=== PATIENT | male | born 1955 | race Caucasian/White ===

== ENCOUNTER 2017-12-13 05:53 | Emergency (ER) | payer OTHER ==
[~2017-12-13] VITALS: Ht 185.4 cm; Wt 158.0 kg
[~2017-12-13 05:53] MED LIST: CINN1CAP2 PO; FLM4 PO; FLNIN/; GLC500 PO; GLUCTAB7 PO; HYDC25 PO; IBUP1TAB55 PO; INSDGI SC; LEVO150T9 PO; LISI-787 PO; MULT-188 PO; MULTTAB58 PO; NAPR1TAB9 PO; NVLG; NVLGI SC; PRS5 PO; [UNRECOGNIZED DRUG - CODE] PO
[2017-12-13] MEDS ORDERED: ONDANSETRON INJ 2 MG/ML 2 ML VIAL IV STA ×2 (05:58→09:48)
[2017-12-13] MEDS ORDERED: MoRPHine SULFATE 4 MG/ML 1 ML CARP\\VIAL IV STA ×2 (05:58→07:29)
[2017-12-13] MEDS ORDERED: SODIUM CHLORIDE 0.9% 500ML 500 ML IV STA ×2 (05:58→06:44)
[2017-12-13 06:00] VITALS: TEMP 36.4; Ht 185.4 cm; Wt 158.0 kg
[2017-12-13 06:02] VITALS: O2SAT 94
[2017-12-13 06:25] LABS: BASO % 0.2 %; BASO ABS # 0.02 K/uL (0-0.2); EOS % 0.8 %; EOS ABS # 0.07 K/uL (0-0.5); HEMATOCRIT 44.9 % (42-52); IG# 0.03 K/uL (0.00-0.02); LYMPH % 21.5 %; LYMPH ABS # 1.78 K/uL (1.2-3.4); MEAN CELL VOLUME 91.6 fL (80-100); MEAN CORPUSCULAR HEMOGLOBIN 30.6 pg (25-34); MEAN CORPUSCULAR HGB CONC 33.4 g/dl (32-36); MEAN PLATELET VOLUME 9.1 fL (7.4-10.4); MONO ABS # 0.74 K/uL (0.11-0.59); NEUT % 68.1 %; NEUT ABS # 5.62 K/uL (1.4-6.5); PLATELET COUNT 207 K/uL (130-400); RED CELL DISTRIBUTION WIDTH CV 13.3 % (11.5-14.5); RED CELL DISTRIBUTION WIDTH SD 44.8 fL (36.4-46.3); WHITE BLOOD COUNT 8.26 K/uL (4.8-10.8)
[2017-12-13 06:43] LABS: ALBUMIN 3.8 gm/dl (3.4-5.0); ALT/SGPT 104 U/L (12-78); BLOOD UREA NITROGEN 19 mg/dl (7-18); CALCIUM 9.4 mg/dl (8.5-10.1); CARBON DIOXIDE 27 mmol/L (21-32); GLUCOSE 262 mg/dl (70-99); LIPASE 149 U/L (73-393); POTASSIUM 3.4 mmol/L (3.5-5.1); SODIUM 138 mmol/L (136-145)
[2017-12-13] MEDS ORDERED: POTASSIUM CHLORIDE 10 MEQ TABCR PO STA (06:44)
[2017-12-13 06:48] LABS: ALKALINE PHOSPHATASE 71 U/L (45-117); AST/SGOT 94 U/L (15-37); TOTAL PROTEIN 7.4 gm/dl (6.4-8.2)
[2017-12-13] MEDS ORDERED: MULT-1056 PO (06:52)
[2017-12-13] MEDS ORDERED: GLC/500 PO ×3 (06:52→07:06)
[2017-12-13] MEDS ORDERED: LOSA50TA6 PO (06:53)
[2017-12-13] MEDS ORDERED: GLUC15002 PO (06:56)
[2017-12-13] MEDS ORDERED: HYDR25TA4 PO (06:57)
[2017-12-13] MEDS ORDERED: GARC1TAB PO (06:57)
[2017-12-13] MEDS ORDERED: INSDGIPEN SC ×2 (07:04)
[2017-12-13] MEDS ORDERED: TAMS0.4C38 PO (07:07)
--- NOTE | 2017-12-13 07:22 | DIAGNOSTIC IMAGING REPORT ---
ABDOMINAL ULTRASOUND, RIGHT UPPER QUADRANT HISTORY: Right upper quadrant abdominal pain and nausea. COMPARISON: KUB October 03, 2008. FINDINGS: This exam is compromised by suboptimal penetration. Increased hepatic echogenicity is noted. The liver is mildly enlarged. There is no biliary ductal dilatation. No gallstones are noted. There is no gallbladder wall thickening. There may be minimal sludge within the gallbladder. The pancreas is largely obscured by overlying bowel gas. Note is made of mild right hydronephrosis. IMPRESSION: 1. No gallstones, gallbladder wall thickening or biliary ductal dilatation. Possible minimal sludge within the gallbladder. 2. Mild right hydronephrosis which could be correlated with right flank pain. 3. Fatty liver. 4. Large obscured pancreas. Electronically signed by: Khari Miller M.D. 12/13/2017 7:21 AM Dictated Date/Time: 12/13/2017 7:19 AM
[2017-12-13] MEDS ORDERED: OPTIRAY 320 IV PRN (07:30)
--- NOTE | 2017-12-13 08:14 | DIAGNOSTIC IMAGING REPORT ---
ABDOMEN AND PELVIS CT WITH IV CONTRAST CT DOSE: 2319.87 mGy.cm HISTORY: right sided abd pain TECHNIQUE: Multiaxial CT images of the abdomen and pelvis were performed following the use of intravenous contrast. A dose lowering technique was utilized adhering to the principles of ALARA. COMPARISON STUDY: Abdominal ultrasound 12/13/2017. FINDINGS: A 5 mm subpleural nodule along the right minor fissure on image 6. There are 2 hypodense lesions within the right hepatic lobe with the largest measuring 1.6 cm. These favor cysts. The spleen, adrenal glands, pancreas, and gallbladder are unremarkable. A 1.3 cm hypodense lesion within the upper pole the left kidney. This also favors a cyst. Bilateral nephrolithiasis. No left-sided hydronephrosis. Mild right perinephric edema. There is mild right hydronephrosis secondary to an obstructing 4 mm stone within the distal right ureter best seen on image 428. Normal bladder. No bowel wall thickening or obstruction. Normal appendix. IMPRESSION: 1. A 4 mm obstructing stone within the distal right ureter resulting in mild right hydronephrosis. 2. Bilateral nephrolithiasis. 3. A 5 mm indeterminate subpleural nodule within the right middle lobe. Please refer to the chart below for recommended follow-up. Please refer to below summary of Fleischner criteria recommendations for follow-up of incidental CT nodules (Anna Vargas, Guidelines for management of small pulmonary nodules detected on CT scans: A statement from the Fleischner Society, Radiology 237: [id number].) SOLID NODULES Solitary nodule size: <6 mm * Low risk patients: no follow-up needed * high risk patients: optional CT at 12 months Solitary nodule size: 6-8 mm * Low risk patients: follow-up at 6-12 months, then consider further follow-up at 18-24 months * high risk patients: initial follow-up CT at 6-12 months and then at 18-24 months if no change Solitary nodule size: >8 mm * either low or high risk patients - consider follow-up CT at 3 months, and/or CT-PET, and/or biopsy Multiple nodules size: <6 mm * Low risk patients: no routine follow-up * high risk patients: optional CT at 12 months Multiple nodules size: 6-8 mm * Low risk patients: follow-up at 3-6 months, then consider further follow-up at 18-24 months * high risk patients: follow-up at 3-6 months, then at 18-24 months if no change Multiple nodules size: >8 mm * Low risk patients: follow-up at 3-6 months, then consider further follow-up at 18-24 months * high risk patients: follow-up at 3-6 months, then at 18-24 months if no change Note: newly detected indeterminate nodule in persons 35 years of age or older. * Low risk patients: minimal or absent history of smoking and/or other known risk factors * high risk patients: history of smoking or of other known risk factors (e.g. first degree relative with lung cancer, or exposure to asbestos, radon, uranium) * if a nodule up to 8 mm is partly solid or is ground glass further follow-up is required after 24 months to exclude possible slow growing adenocarcinoma (SUZANNA) SUBSOLID NODULES Solitary pure ground-glass nodule * nodule size <6 mm - no CT follow-up required * nodule size >=6 mm - follow-up CT at 6-12 months, then every 2 years until 5 years Solitary part-solid nodule * nodule size <6 mm - no CT follow-up required * nodule size >=6 mm - follow-up CT at 3-6 months. If unchanged, and solid component remains <6 mm, then annual follow-up for 5 years Multiple subsolid nodules * nodule size <6 mm - follow-up CT at 3-6 months, consider further follow-up at 2 and 4 years if stable * nodule size >=6 mm - follow-up CT at 3-6 months, subsequent management based on the most suspicious nodule(s) Electronically signed by: Angelo Armando M.D. 12/13/2017 8:13 AM Dictated Date/Time: 12/13/2017 8:07 AM
[2017-12-13] MEDS ORDERED: OXYC1TAB3 PO (09:25)
[2017-12-13] MEDS ORDERED: MoRPHine SULFATE 4 MG/ML 1 ML CARP\\VIAL IV PRN (09:30)
[2017-12-13 09:39] LABS: INR 1.1 (0.9-1.1); PTT PATIENT 24.8 SECONDS (21.0-31.0)
[2017-12-13 09:54] VITALS: BP 173/98; PULSE 72; O2SAT 94
--- NOTE | 2017-12-13 10:16 | EMERGENCY ROOM VISIT NOTE ---
ED Visit Note First contact with patient: 09:17 62-year-old male whose care was transferred to nm from Carolina Holliday PA-C at change of shift. The patient presents to the emergency department with complaint of abdominal pain after eating ham left over from [employer]. At the time of transfer of care, a noncontrast CT of the abdomen and pelvis was pending. Review of labs showed mild LFT elevation, otherwise no other acute findings: Results Past 24 Hours Test 12/13/17 06:14 12/13/17 06:17 12/13/17 06:50 12/13/17 07:05 Range/Units White Blood Count 8.26 4.8-10.8 K/uL Red Blood Count 4.90 4.7-6.1 M/uL Hemoglobin 15.0 14.0-18.0 g/dL Hematocrit 44.9 42-52 % Mean Corpuscular Volume 91.6 80-100 fL Mean Corpuscular Hemoglobin 30.6 25-34 pg Mean Corpuscular Hemoglobin Concent 33.4 32-36 g/dl Platelet Count 207 130-400 K/uL Mean Platelet Volume 9.1 7.4-10.4 fL Neutrophils (%) (Auto) 68.1 % Lymphocytes (%) (Auto) 21.5 % Monocytes (%) (Auto) 9.0 % Eosinophils (%) (Auto) 0.8 % Basophils (%) (Auto) 0.2 % Neutrophils # (Auto) 5.62 1.4-6.5 K/uL Lymphocytes # (Auto) 1.78 1.2-3.4 K/uL Monocytes # (Auto) 0.74 0.11-0.59 K/uL Eosinophils # (Auto) 0.07 0-0.5 K/uL Basophils # (Auto) 0.02 0-0.2 K/uL RDW Standard Deviation 44.8 36.4-46.3 fL RDW Coefficient of Variation 13.3 11.5-14.5 % Immature Granulocyte % (Auto) 0.4 % Immature Granulocyte # (Auto) 0.03 0.00-0.02 K/uL Sodium Level 138 136-145 mmol/L Potassium Level 3.4 3.5-5.1 mmol/L Chloride Level 101 98-107 mmol/L Carbon Dioxide Level 27 21-32 mmol/L Anion Gap 10.0 3-11 mmol/L Blood Urea Nitrogen 19 7-18 mg/dl Creatinine 1.20 0.60-1.40 mg/dl Est Creatinine Clear Calc Drug Dose 100.3 ml/min Estimated GFR () 74.7 Estimated GFR (Non- 64.4 BUN/Creatinine Ratio 15.8 10-20 Random Glucose 262 70-99 mg/dl Calcium Level 9.4 8.5-10.1 mg/dl Total Bilirubin 0.4 0.2-1 mg/dl Direct Bilirubin < 0.1 0-0.2 mg/dl Aspartate Amino Transf (AST/SGOT) 94 15-37 U/L Alanine Aminotransferase (ALT/SGPT) 104 12-78 U/L Alkaline Phosphatase 71 45-117 U/L Troponin I < 0.015 0-0.045 ng/ml Total Protein 7.4 6.4-8.2 gm/dl Albumin 3.8 3.4-5.0 gm/dl Lipase 149 73-393 U/L Bedside Troponin I < 0.030 0-0.045 ng/ml Urine Color YELLOW Urine Appearance CLEAR CLEAR Urine pH 5.0 4.5-7.5 Urine Specific [place] 1.025 1.000-1.030 Urine Protein NEG NEG Urine Glucose (UA) NEG NEG Urine Ketones NEG NEG Urine Occult Blood NEG NEG Urine Nitrite NEG NEG Urine Bilirubin NEG NEG Urine Urobilinogen NEG NEG Urine Leukocyte Esterase NEG NEG Right upper quadrant abdominal ultrasound was ordered and showed possible minimal gallbladder sludge, and mild right hydronephrosis. Radiologist report is as follows: ABDOMINAL ULTRASOUND, RIGHT UPPER QUADRANT HISTORY: Right upper quadrant abdominal pain and nausea. COMPARISON: [facility] October 03, 2008. FINDINGS: This exam is compromised by suboptimal penetration. Increased hepatic echogenicity is noted. The liver is mildly enlarged. There is no biliary ductal dilatation. No gallstones are noted. There is no gallbladder wall thickening. There may be minimal sludge within the gallbladder. The pancreas is largely obscured by overlying bowel gas. Note is made of mild right hydronephrosis. IMPRESSION: 1. No gallstones, gallbladder wall thickening or biliary ductal dilatation. Possible minimal sludge within the gallbladder. 2. Mild right hydronephrosis which could be correlated with right flank pain. 3. Fatty liver. 4. Large obscured pancreas. Noncontrast CT of the abdomen and pelvis shows a 4 mm distal right ureteral stone. An incidental 5 mm right mid lobe lung nodule was also noted. Radiologist report is as follows: ABDOMEN AND PELVIS CT WITH IV CONTRAST CT DOSE: 2319.87 mGy.cm HISTORY: right sided abd pain TECHNIQUE: Multiaxial CT images of the abdomen and pelvis were performed following the use of intravenous contrast. A dose lowering technique was utilized adhering to the principles of ALARA. COMPARISON STUDY: Abdominal ultrasound 12/13/2017. FINDINGS: A 5 mm subpleural nodule along the right minor fissure on image 6. There are 2 hypodense lesions within the right hepatic lobe with the largest measuring 1.6 cm. These favor cysts. The spleen, adrenal glands, pancreas, and gallbladder are unremarkable. A 1.3 cm hypodense lesion within the upper pole the left kidney. This also favors a cyst. Bilateral nephrolithiasis. No left-sided hydronephrosis. Mild right perinephric edema. There is mild right hydronephrosis secondary to an obstructing 4 mm stone within the distal right ureter best seen on image 428. Normal bladder. No bowel wall thickening or obstruction. Normal appendix. IMPRESSION: 1. A 4 mm obstructing stone within the distal right ureter resulting in mild right hydronephrosis. 2. Bilateral nephrolithiasis. 3. A 5 mm indeterminate subpleural nodule within the right middle lobe. Please refer to the chart below for recommended follow-up. Shortly after I assumed patient care, the patient requested additional medicine for pain. He was initially administered morphine 4 mg IVP, and was administered an additional morphine 4 mg IVP prior to CT scan. CT scan confirmed a 4 mm distal right ureteral calculus. An incidental 5 mm right middle lobe lung nodule was also noted. The patient was advised of his CT findings, as well as his ultrasound finding for possible gallbladder sludge. I did suggest follow-up with his PCP for further management/workup of his pulmonary nodule and gallbladder sludge. The patient does have a urologist as he has had prior history of lithotripsy. He was instructed to call their office as needed for persistent flank pain. He was instructed to return to the emergency department for any uncontrollable pain, vomiting or developing fever. Prior to discharge, the patient was also administered an additional Zofran 4 mg IVP. The patient was happy with plan of care, and rated his discomfort a 3 out of 10 at the conclusion of my exam. MEDICAL DECISION MAKING: Patient presents with abrupt onset of right upper quadrant abdominal and flank pain. It was initially thought that the patient could potentially have acute cholecystitis or biliary colic. Although the patient does have possible mild sludge formation within the gallbladder, additional imaging or laboratory studies are not suggestive of cholecystitis. Laboratory studies also are not suggestive of acute pancreatitis. The patient does have a fatty liver with elevated LFTs of unknown chronicity. CT scan does show a 4 mm distal right ureteral calculus which is likely what is causing the patient's discomfort. He has no evidence for infection on urinalysis. DIAGNOSIS: 1. Right ureteral calculus 2. Right middle lobe lung nodule
--- NOTE | 2017-12-14 04:56 | EMERGENCY ROOM VISIT NOTE ---
History First contact with patient: 05:57 Chief Complaint: ABDOMINAL PAIN Stated Complaint: ABDOMINAL PAIN History of Present Illness The patient is a 62 year old male who presents to the Emergency Room with complaints of nausea and vomiting with right upper quadrant pain for the past few hours that woke him up out of sleep. Patient states he had old ham for dinner last night. He states smelled okay. He describes pain as discomfort, ranging in severity 7 out of 10. Nothing makes it better or worse. No blood or black in the emesis. Patient denies chest pain, dyspnea, fever, chills, cough, congestion, diarrhea. His blood sugars normally run around 200. He still has gallbladder. No prior abdominal surgeries. Review of Systems See HPI for pertinent positives & negatives. A total of 10 systems reviewed and were otherwise negative. Past Medical/Surgical History Medical Problems: (1) Bronchitis (2) Diabetes (3) HTN (hypertension) Family History Diabetes mellitus Hypertension Kidney stones Social History Smoking Status: Never Smoker Smokeless Tobacco Use: No Drug Use: none Marital Status: Housing Status: lives with family Occupation Status: employed Current/Historical Medications Scheduled Cinnamon (Cinnamon), 1,000 MG PO BID Garcinia Cambogia-Chromium (Garcinia Cambogia), 1 TAB PO TID Vmsxharsqad-Omtuvtkhkub-Aix C- (Glucosamine 1500 Complex), 1 DOSE PO DAILY Hydrochlorothiazide (Hctz), 25 MG PO BID Insulin Glargine (Lantus Solostar), 25 UNITS SC QAM Insulin Glargine (Lantus Solostar), 30 UNITS SC QPM Levothyroxine Sodium (Levothyroxine Sodium), 150 MCG PO DAILY Losartan Potassium (Cozaar), 50 MG PO DAILY Metformin Hcl (Glucophage), 1,000 MG PO QAM Metformin Hcl (Glucophage), 1,500 MG PO QPM Multiple Vitamins W/ Minerals (Ocuvite), 1 TAB PO BID Multiple Vitamins W/ Minerals (Multivitamin Men 50+), 1 TAB PO DAILY Tamsulosin Hcl (Flomax), 0.4 MG PO HS Physical Exam Vital Signs Date Time Temp Pulse Resp B/P (MAP) Pulse Ox O2 Delivery O2 Flow Rate FiO2 12/13/17 09:54 72 18 173/98 94 Room Air 12/13/17 09:24 77 12/13/17 08:04 70 18 92 Room Air 170/99 12/13/17 07:31 164/93 12/13/17 07:13 72 18 160/101 92 Room Air 12/13/17 07:12 160/101 12/13/17 06:27 72 18 122/73 93 Nasal Cannula 4.0 12/13/17 06:27 122/73 12/13/17 06:05 74 12/13/17 06:02 94 Nasal Cannula 3.0 12/13/17 06:02 Nasal Cannula 12/13/17 06:00 36.4 79 20 135/80 87 Room Air 12/13/17 05:59 135/80 Physical Exam VITALS: Vitals are noted on the nurse's note and reviewed by myself. Vital signs stable. GENERAL: Pleasant male who appears in pain, in no acute distress, nondiaphoretic , well-developed well-nourished. SKIN: The skin was without rashes, erythema, edema, or bruising. There is no tenting of the skin. Capillary reflex less than 2 seconds. HEAD: Normocephalic atraumatic. EARS: External auditory canals clear, tympanic membranes pearly frankel without erythema or effusion bilaterally. EYES: Pupils equal round and reactive to light and accommodation. Conjunctivae without injection, sclerae without icterus. Extraocular movements intact. NOSE: Patent, turbinates without inflammation or discharge. MOUTH: Mucous membranes mildly dry. Pharynx without erythema or exudate. Uvula midline. Airway patent. Tongue does not deviate. NECK: Supple without nuchal rigidity. No lymphadenopathy. No thyromegaly. Cervical spine is nontender. No JVD. HEART: Regular rate and rhythm LUNGS: Clear to auscultation bilaterally without wheezes, rales or rhonchi. No dullness to percussion. No retractions or accessory muscle use. ABDOMEN: Positive bowel sounds x 4. Normal tympanic percussion. Soft, protuberant, obese, tender to palpation right upper quadrant, no CVA tenderness , without masses or organomegaly. No guarding or rebound tenderness. MUSCULOSKELETAL: No muscle atrophy, erythema, noted. NEURO: Patient was alert and oriented to person place and time. Normal sensation to light and sharp touch. No focal neurological deficits. Medical Decision & Procedures Laboratory Results 12/13/17 06:14 Red Blood Count 4.90, Mean Corpuscular Volume 91.6, Mean Corpuscular Hemoglobin 30.6, Mean Corpuscular Hemoglobin Concent 33.4, Mean Platelet Volume 9.1, Neutrophils (%) (Auto) 68.1, Lymphocytes (%) (Auto) 21.5, Monocytes (%) (Auto) 9.0, Eosinophils (%) (Auto) 0.8, Basophils (%) (Auto) 0.2, Neutrophils # (Auto) 5.62, Lymphocytes # (Auto) 1.78, Monocytes # (Auto) 0.74, Eosinophils # (Auto) 0.07, Basophils # (Auto) 0.02 12/13/17 06:14 Test 12/13/17 06:14 12/13/17 06:17 12/13/17 06:50 White Blood Count 8.26 K/uL (4.8-10.8) Red Blood Count 4.90 M/uL (4.7-6.1) Hemoglobin 15.0 g/dL (14.0-18.0) Hematocrit 44.9 % (42-52) Mean Corpuscular Volume 91.6 fL (80-100) Mean Corpuscular Hemoglobin 30.6 pg (25-34) Mean Corpuscular Hemoglobin Concent 33.4 g/dl (32-36) Platelet Count 207 K/uL (130-400) Mean Platelet Volume 9.1 fL (7.4-10.4) Neutrophils (%) (Auto) 68.1 % Lymphocytes (%) (Auto) 21.5 % Monocytes (%) (Auto) 9.0 % Eosinophils (%) (Auto) 0.8 % Basophils (%) (Auto) 0.2 % Neutrophils # (Auto) 5.62 K/uL (1.4-6.5) Lymphocytes # (Auto) 1.78 K/uL (1.2-3.4) Monocytes # (Auto) 0.74 K/uL (0.11-0.59) Eosinophils # (Auto) 0.07 K/uL (0-0.5) Basophils # (Auto) 0.02 K/uL (0-0.2) RDW Standard Deviation 44.8 fL (36.4-46.3) RDW Coefficient of Variation 13.3 % (11.5-14.5) Immature Granulocyte % (Auto) 0.4 % Immature Granulocyte # (Auto) 0.03 K/uL (0.00-0.02) Prothrombin Time 12.0 SECONDS (9.0-12.0) Prothromb Time International Ratio 1.1 (0.9-1.1) Activated Partial Thromboplast Time 24.8 SECONDS (21.0-31.0) Partial Thromboplastin Ratio 1.0 Anion Gap 10.0 mmol/L (3-11) Est Creatinine Clear Calc Drug Dose 100.3 ml/min Estimated GFR () 74.7 Estimated GFR (Non- 64.4 BUN/Creatinine Ratio 15.8 (10-20) Calcium Level 9.4 mg/dl (8.5-10.1) Total Bilirubin 0.4 mg/dl (0.2-1) Direct Bilirubin < 0.1 mg/dl (0-0.2) Aspartate Amino Transf (AST/SGOT) 94 U/L (15-37) Alanine Aminotransferase (ALT/SGPT) 104 U/L (12-78) Alkaline Phosphatase 71 U/L (45-117) Troponin I < 0.015 ng/ml (0-0.045) Total Protein 7.4 gm/dl (6.4-8.2) Albumin 3.8 gm/dl (3.4-5.0) Lipase 149 U/L (73-393) Bedside Troponin I < 0.030 ng/ml (0-0.045) Urine Color YELLOW Urine Appearance CLEAR (CLEAR) Urine pH 5.0 (4.5-7.5) Urine Specific [place] 1.025 (1.000-1.030) Urine Protein NEG (NEG) Urine Glucose (UA) NEG (NEG) Urine Ketones NEG (NEG) Urine Occult Blood NEG (NEG) Urine Nitrite NEG (NEG) Urine Bilirubin NEG (NEG) Urine Urobilinogen NEG (NEG) Urine Leukocyte Esterase NEG (NEG) Medications Administered Medications (Trade) Dose Ordered Sig/Sasha Route Start Time Stop Time Status Last Admin Dose Admin Morphine Sulfate (MoRPHine SULFATE INJ) 4 mg NOW STAT IV 12/13/17 05:58 12/13/17 06:01 DC 12/13/17 06:22 4 MG Ondansetron HCl (Zofran Inj) 4 mg NOW STAT IV 12/13/17 05:58 12/13/17 06:01 DC 12/13/17 06:20 4 MG Sodium Chloride 500 ml @ 999 mls/hr Q31M STAT IV 12/13/17 05:58 12/13/17 06:28 DC 12/13/17 06:20 999 MLS/HR Sodium Chloride 500 ml @ 999 mls/hr Q31M STAT IV 12/13/17 06:44 12/13/17 07:14 DC 12/13/17 07:12 999 MLS/HR Potassium Chloride (Klor-Con M10) 20 meq NOW STAT PO 12/13/17 06:44 12/13/17 06:45 DC 12/13/17 07:08 20 MEQ Morphine Sulfate (MoRPHine SULFATE INJ) 4 mg NOW STAT IV 12/13/17 07:29 12/13/17 07:30 DC 12/13/17 07:32 4 MG Morphine Sulfate (MoRPHine SULFATE INJ) 4 mg Q30M PRN IV 12/13/17 09:30 12/13/17 11:02 DC 12/13/17 09:53 4 MG Ondansetron HCl (Zofran Inj) 4 mg NOW STAT IV 12/13/17 09:48 12/13/17 09:49 DC 12/13/17 09:52 4 MG ED Course Prior records/ancillary studies reviewed. Triage Nursing notes reviewed. Additional history obtained from EMS. The patient's history was concerning for abdominal pain. Differential diagnosis: Etiologies such as appendicitis, diverticulitis, PUD, biliary pathology, UTI, pancreatitis, obstruction, mesenteric ischemia, aortic pathology, infections, inflammatory bowel disease, renal colic, as well as others were entertained. Physical examination findings: As above. ER treatment provided: Morphine, Zofran, IV fluids On reassessment the patient felt better. Diagnostics interpreted by me: ECG: Normal sinus, normal intervals, Q waves in the inferior leads, rate of 71, no acute ST-T wave changes. Impression normal sinus rhythm with Q waves in the inferior leads interpreted by myself The labs revealed hyperglycemia without DKA. Mild LFT elevation and hepatitis panel was ordered because of this along with coags . Negative troponin Imaging studies: CT pending Exam and history seem consistent with abdominal pain pending CT at time of signout. Patient was neurovascularly and neurologically intact. He felt better after being medicated as above. Case is signed out to Bhargav Dow PA-C pending CT and reevaluation in stable condition. Case reviewed with my attending Medical Decision As above Medication Reconcilliation Current Medication List: was personally reviewed by me Impression Primary Impression: Right lower quadrant abdominal pain Departure Information Referrals Fátima Montalvo M.D. (PCP) Patient Instructions My [facility]
== END 2017-12-13 10:40 | disposition home or self-care (01) ==
LOC: EDBD 05:53 → C.EDB 05:54
DX: N20.1 Calculus of ureter (principal); R91.1 Solitary pulmonary nodule; R11.2 Nausea with vomiting, unspecified; E11.9 Type 2 diabetes mellitus without complications; I10 Essential (primary) hypertension; Z79.4 Long term (current) use of insulin; Z79.899 Other long term (current) drug therapy; Z87.09 Personal history of other diseases of the respiratory system; Z82.49 Family history of ischemic heart disease and other diseases of the circulatory system; Z83.3 Family history of diabetes mellitus; Z84.1 Family history of disorders of kidney and ureter

== ENCOUNTER 2021-07-30 17:02 | Inpatient (IN) ==
--- NOTE | 2021-07-30 18:13 | Emergency Department Note ---
Impression & Plan Pneumonia due to 2019-nCoV, Hypoxia, Acute hyperglycemia, Hypokalemia ED Provider Note NAME: JERRY OLIVAS AGE: 66 SEX: M : 1955 ARRIVES VIA: Walk-In INFORMANT: Patient ED PROVIDER(S): Erwin Weeks DO CHIEF COMPLAINT: not feeling well HPI: Patient is a 66-year-old male who presents ER for not feeling well. He notes has been more short of breath recently over the past 2 weeks. Denies any headache or change in vision. He denies any chest pain. No nausea vomiting or diarrhea. No dysuria urgency or frequency. Patient notes that he is sign ificantly dyspneic with any exertion. No history of COPD. He does have a cough which is new over the past couple weeks. He does feel little congested. He has lost his sense of taste and smell. He has not been vaccinated against Covid. He denies any recorded fevers above 100.4. He does wear CPAP at home. ROS: See above HPI for pertinent positives & negatives. A total of 10 systems reviewed and were otherwise negative. PAST MEDICAL HISTORY:See Below PAST SURGICAL HISTORY:See Below FAMILY HISTORY:See Below SOCIAL HISTORY:See Below HOME MEDICATIONS:See Below ALLERGIES:See Below VITALS:See Below PHYSICAL EXAMINATION: GENERAL: Sitting up in bed, alert, well appearing, well nourished, no distress, non-toxic EYE EXAM: normal conjunctiva. PERRL and EOM's grossly intact. OROPHARYNX: no exudate, no erythema, lips, buccal mucosa, and tongue normal and mucous membranes are moist NECK: supple, no nuchal rigidity, no adenopathy, non-tender LUNGS: Clear to auscultation. Normal chest wall mechanics HEART: no murmurs, S1 normal and S2 normal ABDOMEN: abdomen soft, non-tender, normo-active bowel sounds, no masses, no rebound or guarding. UPPER EXTREMITIES: upper extremities are grossly normal. LOWER EXTREMITIES: No pitting edema. Calves are ago bilateral NEURO EXAM: Normal sensorium, cranial nerves II-XII grossly intact, normal speech, no gross weakness of arms, no gross weakness of legs. MEDICAL DECISION MAKING: Patient is a 66-year-old male who presents ER for above-stated complaint. Upon presentation he was found to be hypoxic at 85% on room air. Borderline febrile at 37.3. He is slightly tachycardic. IV was established blood was obtained. Labs show no significant leukocytosis or anemia. BMP with mild hyponatremia at 131. Mild hypokalemia 3.1. LFTs were unremarkable. Bilirubin was unremarkable. Glucose was slightly elevated to 50. Covid was positive. Troponin was negative. CT of the chest shows Bilateral infiltrates consistent w ith pneumonia/Covid.. No obvious PEs but a limited study. EKG was unchanged from previous. Patient was given fluids, IV calcium, oral potassium and IV insulin. Patient was updated bedside. Discussed with hospitalist admitted for further work-up. Patient was titrated up to 4 L and was 87%. He was placed on high flow. He was resting comfortably and in no distress. Triage Nursing notes reviewed. Limited review of prior medical records performed Vital Signs: reviewed and remarkable for hypoxic, tachycardic and borderline febrile Differential diagnosis: Differential diagnoses includes but is not limited to pneumonia, bronchitis, COPD/Asthma exacerbation, pneumothorax, pulmonary embolism, congestive heart failure, acute coronary syndrome ER treatment provided: See below Diagnostics interpreted by me: ECG: Sinus tachycardia rate of 96 Left axis No PVCs QTC 452 Cardiac Monitoring: An order was placed for continuous cardiac monitoring. The monitor shows a rate of 92 with sinus rhythm. Laboratory studies: As stated above and show below. Imaging studies: CT angio of the chest shows bilateral infiltrates. Limited study from the standpoint of PE. Consultation(s): Discussed with Dr. Chuyita Callahan for further evaluation Procedures: none Critical Care: I have personally spent 32 minutes of critical care time in the direct management of this patient. This includes bedside care, interpretation of milady gnostic studies, and testing, discussion with consultants, patient, and family members, and other required patient management activities. This 32 minutes is in excess of all separately billable procedures. Past Med/Surg History Medical History Bilateral primary osteoarthritis of knee Diabetes mellitus, type 2 Diabetic peripheral neuropathy History of kidney stones Hyperlipidemia Hypertension Hypothyroidism Obesity Osteoarthritis Sleep apnea Slow to wake up after anesthesia T2DM (type 2 diabetes mellitus) Urinary urgency Surgical History History of tonsillectomy and adenoidectomy History of uvulopalatopharyngoplasty Hx of knee surgery Family History Father Coronary heart disease Allergies Hearing loss Mother Hypotension Brother Diabetes Other No family history of adverse response to anesthesia No family history of bleeding disorder Social History Smoking Status: Never smoker 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); Hx Alcohol Use: Yes Alcohol Intake Frequency: Monthly or Less Hx Substance Use: No Preferred Language: Persian Communication Ability: Effective Beliefs That Will Affect Care: None marital status: Current Living Situation: Spouse current occupational status: retired current occupation: self employed currently(2020) Feels Safe at Home: Yes Assistive Devices: CPAP, Glasses and Oxygen - at Night Allergies Allergies Allergy/AdvReac Type Severity Reaction Status Date / Time No Known Allergies Allergy Verified 07/30/21 18:44 Home Meds Home Medications Medication Instructions Recorded Confirmed glucosamine sulf dipot 1 cap PO QAM 12/28/19 07/30/21 chlr,msm,chond 550 mg-C 30 mg-julieta 1 mg capsule (Glucosamine Chondroitin) hydrochlorothiazide 25 mg tablet 25 mg PO BID 12/28/19 07/30/21 levothyroxine 150 mcg tablet 150 mcg PO QAM 12/28/19 07/30/21 metformin 500 mg tablet 1,000 mg PO QAM 12/28/19 07/30/21 metformin 500 mg tablet 1,500 mg PO QPM 12/28/19 07/30/21 multivitamin 1 tab PO QAM 12/28/19 07/30/21 oxybutynin chloride 10 mg 10 mg PO QPM 12/28/19 07/30/21 tablet,extended release 24 hr Raspberry ketones 1 tab PO BID 10/14/20 07/30/21 blood sugar diagnostic (Accu-Chek #10 ea 10/14/20 05/14/21 Guide test strips) lancets (Accu-Chek Softclix #100 ea 10/14/20 05/20/21 Lancets) cinnamon bark 500 mg capsule 1,000 mg PO BID 02/05/21 07/30/21 (Cinnamon) losartan 25 mg tablet 25 mg PO DAILY 04/08/21 07/30/21 acetaminophen 500 mg oral powder 1,000 mg PO DIRECTED PRN ea 05/20/21 07/30/21 packet (Tylenol Extra Strength) diphenhydramine HCl 25 mg capsule 25 mg PO DAILY cap 05/20/21 07/30/21 (Benadryl) insulin aspart U-100 100 unit/mL 100 unit SUBCUT TID ml 05/20/21 07/30/21 subcutaneous solution (Novolog U-100 Insulin aspart) insulin glargine 100 unit/mL See Rx Instructions .ROUTE .COMPLEX 05/20/21 07/30/21 subcutaneous solution omega-3 fatty acids 1,000 mg 1,000 mg PO DAILY 05/20/21 07/30/21 capsule (Fish Oil Concentrate) turmeric 400 mg capsule 400 mg PO DAILY cap 05/20/21 07/30/21 fluticasone propionate 50 1 spray INTRANASAL DIRECTED 07/30/21 07/30/21 mcg/actuation nasal spray,suspension mupirocin 2 % topical ointment 1 applic TOPICAL BID PRN 07/30/21 07/30/21 potassium chloride 10 mEq 0 meq PO DAILY 07/30/21 07/30/21 tablet,extended release sodium chloride 0.65 % nasal spray 2 spray INTRANASAL DIRECTED PRN 07/30/21 07/30/21 aerosol (Saline Nasal) vitamin A-vitamin C-vit E-min 1 tab PO DAILY 07/30/21 07/30/21 tablet Previous Rx's Medication Instructions Recorded semaglutide 1 mg/dose (2 mg/1.5 0.5 mg SUBCUT ONCE 30 Days #11.25 05/20/21 mL) subcutaneous pen injector ml Results & Data (ED) Vital Signs Vital Signs - 24 hr 07/30/21 17:03 07/30/21 17:10 07/30/21 17:17 Temperature 39.3 C H 37.7 C H Temperature Source Oral Temporal Artery Scan Pulse Rate 103 H 96 H Pulse Rate [Apical] 96 H Pulse Rate from SpO2 Sensor Pulse Rhythm Regular Regular Pulse Rhythm [Apical] Regular Pulse Strength Normal Pulse Strength [Apical] Normal Respiratory Rate 22 20 20 Respiratory Effort / Characteristics Spontaneous Accessory Muscle Use Respiratory Depth Normal Shallow Respiratory Pattern Regular Regular Blood Pressure 136/80 Blood Pressure [Right Arm] 164/94 H Blood Pressure Mean 98 Blood Pressure Mean [Right Arm] 117 Blood Pressure Position Sitting Blood Pressure Position [Right Arm] Semi-fowlers Pulse Oximetry 82 L 86 L 90 Oxygen Delivery Method Nasal Cannula Room Air Nasal Cannula Oxygen Flow Rate 0 3 Sepsis Recent Fever Within 48 Hours Yes Sepsis New/Unexplained Change in Mental Status N/A Sepsis Action Taken by Nursing No Action Required Oxygen Flow Rate - Titration 3 Pulse Oximetry Post Tiitration 90 07/30/21 18:20 07/30/21 19:03 07/30/21 19:37 Temperature Temperature Source Pulse Rate 97 H 89 Pulse Rate [Apical] 91 H Pulse Rate from SpO2 Sensor 97 H 89 Pulse Rhythm Pulse Rhythm [Apical] Regular Pulse Strength Pulse Strength [Apical] Normal Respiratory Rate 20 Respiratory Effort / Characteristics Spontaneous Respiratory Depth Normal Respiratory Pattern Regular Blood Pressure 164/94 H 129/65 Blood Pressure [Right Arm] 164/94 H Blood Pressure Mean 117 86 Blood Pressure Mean [Right Arm] 117 Blood Pressure Position Blood Pressure Position [Right Arm] Semi-fowlers Pulse Oximetry 90 90 87 L Oxygen Delivery Method Nasal Cannula Nasal Cannula Nasal Cannula Oxygen Flow Rate 4 3 4 Sepsis Recent Fever Within 48 Hours Sepsis New/Unexplained Change in Mental Status Sepsis Action Taken by Nursing Oxygen Flow Rate - Titration Pulse Oximetry Post Tiitration Laboratory Data Result diagrams: 07/30/21 19:05 07/30/21 19:05 Lab Results 07/30/21 07/30/21 07/30/21 Range/Units 19:05 19:05 19:05 WBC 5.50 (4.8-10.8) K/uL RBC 5.05 (4.7-6.1) M/uL Hgb 15.5 (14.0-18.0) g/dL POC Hgb (14.0-18.0) g/dl Hct 45.0 (42-52) % POC Hct (42-52) % MCV 89.1 (80-100) fL MCH 30.7 (25-34) pg MCHC 34.4 (32-36) g/dL RDW Std Deviation 45.9 (36.4-46.3) fL RDW Coeff of Mary 14.1 (11.5-14.5) % Plt Count 176 (130-400) K/uL MPV 9.3 (7.4-10.4) fL Immature Gran % (Auto) 0.2 % Neut % (Auto) 76.5 % Lymph % (Auto) 15.5 % [place] % (Auto) 7.6 % Eos % (Auto) 0.0 % Baso % (Auto) 0.2 % Neut # (Auto) 4.21 (1.4-6.5) K/uL Lymph # (Auto) 0.85 L (1.2-3.4) K/uL [place] # (Auto) 0.42 (0.11-0.59) K/uL Eos # (Auto) 0.00 (0-0.5) K/uL Baso # (Auto) 0.01 (0-0.2) K/uL Immature Gran # (Auto) 0.01 (0.00-0.02) K/uL APTT 28.0 (21.0-31.0) Seconds PTT Ratio 1.1 POC Sodium (135-144) mmol/L Sodium 131 L (136-145) mmol/L POC Potassium (3.3-5.0) mmol/L Potassium 3.1 L (3.5-5.1) mmol/L POC Chloride (101-112) mmol/L Chloride 91 L (98-107) mmol/L Carbon Dioxide 30 (21-32) mmol/L POC Total CO2 (24-31) mmol/L Anion Gap 9.0 (3-11) POC Anion Gap (16-25) mmol/L POC BUN (7-18) mg/dl BUN 10 (7-18) mg/dl Creatinine 0.99 (0.6-1.4) mg/dl POC Creatinine (0.6-1.3) mg/dl Est Cr Clr Drug Dosing 109.6 ml/min Est GFR ( Amer) 91.6 ml/min Est GFR (Non-Af Amer) 79.0 ml/min BUN/Creatinine Ratio 9.9 L (10-20) Glucose 246 H (70-99) mg/dl POC Glucose (other) (70-99) mg/dl Calcium 8.3 L (8.5-10.1) mg/dl POC Ioniz Calcium Deja (1.12-1.32) mmol/l Total Bilirubin 0.4 (0.2-1) mg/dl AST 61 H (15-37) U/L ALT 47 (12-78) U/L Alkaline Phosphatase 35 L (45-117) U/L Troponin I < 0.015 (0-0.045) ng/ml Total Protein 7.5 (6.4-8.2) gm/dl Albumin 3.3 L (3.4-5.0) gm/dl Globulin 4.2 H (2.5-4.0) gm/dl Albumin/Globulin Ratio 0.8 L (0.9-2) Lipase 255 (73-393) U/L COVID-19 Eval Order SARS-CoV-2 (PCR) (Negative) 07/30/21 07/30/21 07/30/21 Range/Units 19:05 19:05 19:06 WBC (4.8-10.8) K/uL RBC (4.7-6.1) M/uL Hgb (14.0-18.0) g/dL POC Hgb 16.3 (14.0-18.0) g/dl Hct (42-52) % POC Hct 48 (42-52) % MCV (80-100) fL MCH (25-34) pg MCHC (32-36) g/dL RDW Std Deviation (36.4-46.3) fL RDW Coeff of Mary (11.5-14.5) % Plt Count (130-400) K/uL MPV (7.4-10.4) fL Immature Gran % (Auto) % Neut % (Auto) % Lymph % (Auto) % [place] % (Auto) % Eos % (Auto) % Baso % (Auto) % Neut # (Auto) (1.4-6.5) K/uL Lymph # (Auto) (1.2-3.4) K/uL [place] # (Auto) (0.11-0.59) K/uL Eos # (Auto) (0-0.5) K/uL Baso # (Auto) (0-0.2) K/uL Immature Gran # (Auto) (0.00-0.02) K/uL APTT (21.0-31.0) Seconds PTT Ratio POC Sodium 131 L (135-144) mmol/L Sodium (136-145) mmol/L POC Potassium 3.2 L (3.3-5.0) mmol/L Potassium (3.5-5.1) mmol/L POC Chloride 87 L (101-112) mmol/L Chloride (98-107) mmol/L Carbon Dioxide (21-32) mmol/L POC Total CO2 29 (24-31) mmol/L Anion Gap (3-11) POC Anion Gap 19.0 (16-25) mmol/L POC BUN 10 (7-18) mg/dl BUN (7-18) mg/dl Creatinine (0.6-1.4) mg/dl POC Creatinine 0.8 (0.6-1.3) mg/dl Est Cr Clr Drug Dosing ml/min Est GFR ( Amer) ml/min Est GFR (Non-Af Amer) ml/min BUN/Creatinine Ratio (10-20) Glucose (70-99) mg/dl POC Glucose (other) 249 H (70-99) mg/dl Calcium (8.5-10.1) mg/dl POC Ioniz Calcium Deja 0.97 L (1.12-1.32) mmol/l Total Bilirubin (0.2-1) mg/dl AST (15-37) U/L ALT (12-78) U/L Alkaline Phosphatase (45-117) U/L Troponin I (0-0.045) ng/ml Total Protein (6.4-8.2) gm/dl Albumin (3.4-5.0) gm/dl Globulin (2.5-4.0) gm/dl Albumin/Globulin Ratio (0.9-2) Lipase (73-393) U/L COVID-19 Eval Order Covid19 at [facility] SARS-CoV-2 (PCR) POSITIVE A* (Negative) Administered Medications Discontinued Medications Dexamethasone Sodium Phosphate (DexamethasonePf 10 Mg/Ml Vial) 6 mg IV NOW ONE Stop: 07/30/21 20:07 Last Admin: 07/30/21 20:27 Dose: 6 mg Documented by: [id number] Ioversol (Optiray 320 125ml) 120 ml IV ONCE ONE Stop: 07/30/21 19:35 Last Admin: 07/30/21 19:34 Dose: 120 ml Documented by: [id number] Imaging Data Radiologist's Impression: Chest X-Ray 07/30/21 17:17 XR chest 1V portable CLINICAL HISTORY: Chest Pain COMPARISON STUDY: May 02, 2016 FINDINGS: No pneumothorax. No pleural effusion. Patchy reticular opacities are seen throughout bilateral lungs. Superimposed airspace component is seen within left retrocardiac region and could represent atelectasis or infiltrates.. Accessory azygous lobe is demonstrated. Lung volumes are decreased with crowded lung markings. Cardiomediastinal silhouette is within normal limits in size. No significant pulmonary vascular congestion.. Osseous structures: Mild degenerative changes of the spine. IMPRESSION: 1. Possible atelectasis or infiltrates within left retrocardiac region. 2. The rest of findings as above. ACT 112: Negative or not required by law. The above report was generated using voice recognition software. It may contain grammatical, syntax or spelling errors. Electronically signed by: Kerline Santiago DO 07/30/2021 6:29 PM Chest CTA 07/30/21 17:28 CT ANGIOGRAM OF THE CHEST CLINICAL HISTORY: hypoxic and febrile COMPARISON STUDY: No previous studies for comparison. TECHNIQUE: Following the IV administration of 120 mL of Optiray, CT angiogram of the thorax was performed from the thoracic inlet to the lung bases utilizing the pulmonary embolus protocol. Images are reviewed in the axial, sagittal, and coronal planes. IV contrast was administered without complication. MIP imaging was performed. A dose lowering technique was utilized adhering to the principles of [place]. CT DOSE: 1084.07 mGy.cm FINDINGS: No definite filling defect is seen within main pulmonary artery to suggest pulmonary embolus however opacification within main pulmonary artery is insufficient for adequate evaluation of pulmonary embolus. Significant motion artifact further degrades image quality. Main pulmonary artery is normal in caliber. No evidence of right heart strain seen. Heart is normal in size without pericardial effusion. Mild to moderate coronary calcifications are seen. There is no axillary, supra clavicle or internal mammary lymphadenopathy seen. Mediastinal lymph nodes are slightly prominent measuring up to 1.1 cm in short axis, could be reactive.. Prominent right hilar lymph node measuring 1.6 cm in short axis is seen. Visualized portion of thyroid gland shows no evidence of focal lesions. Mild fat containing hiatal healing is seen. Tracheobronchial tree is patent. Patchy mixed reticular and centrilobular groundglass and consolidative opacities are seen throughout bilateral lungs. Evaluation is limited due to significant motion artifact. No definite pleural effusion is seen. Prominent azygos lobe is seen. Limited evaluation of upper abdominal viscera shows no evidence of acute abnormalities. Osseous structures: Multilevel degenerative changes of the spine. IMPRESSION: No definite pulmonary embolus is seen however opacification within main pulmonary artery is insufficient for adequate evaluation for pulmonary embolus. Also respiratory motion artifact further limits evaluation. No secondary signs of pulmonary embolus. Multifocal mixed reticular and airspace consolidative and groundglass opacities are seen throughout bilateral lungs which could represent atypical pneumonia/Covid. Short-term follow-up with noncontrast CT of the chest on nonemergency basis in 4-6 weeks is recommended to document resolution. The rest of findings as above. ACT 112: Positive. There are findings on this exam that require communication between the performing entity and the patient following Patient Test Result Information Act ([place] Act 112) guidelines. The above report was generated using voice recognition software. It may contain grammatical, syntax or spelling errors. Electronically signed by: Kerline Santiago DO 07/30/2021 8:23 PM Discharge Plan Visit Data Chief Complaint: Shortness of Breath/Dyspnea Stated Complaint: CAN'T BREATHE ED Provider: Erwin Weeks Discharge Problem: Pneumonia due to 2019-nCoV, Hypoxia, Acute hyperglycemia, Hypokalemia Forms Stand Alone Forms: [employer] Prescriptions Prescriptions: No Action Raspberry ketones 1 tab PO BID RF: 0 (DME) lancets [Accu-Chek Softclix Lancets] Misc See Rx Instructions .ROUTE .MEDSUPPLY Qty: 100 RF: 0 (DME) Accu-Chek Guide test strips Strip See Rx Instructions .ROUTE .MEDSUPPLY Qty: 10 RF: 0 losartan 25 mg tablet 25 mg PO DAILY RF: 0 insulin aspart U-100 [Novolog U-100 Insulin aspart] 100 unit/mL solution 100 unit subcut TID RF: 0 turmeric 400 mg capsule 400 mg PO DAILY RF: 0 diphenhydramine HCl [Benadryl] 25 mg capsule 25 mg PO DAILY RF: 0 Tylenol Extra Strength 500 mg powder in packet 1,000 mg PO DIRECTED PRN (Reason: Pain) RF: 0 Ozempic 1 mg/dose (2 mg/1.5 mL) pen injector 0.5 mg subcut ONCE 30 Days Qty: 11.25 RF: 5 omega-3 fatty acids [Fish Oil Concentrate] 1,000 mg capsule 1,000 mg PO DAILY RF: 0 oxybutynin chloride 10 mg Tablet Extended Release 24hr 10 mg PO QPM RF: 0 hydrochlorothiazide 25 mg Tablet 25 mg PO BID RF: 0 Glucosamine Chondroitin 550-30-1 mg Capsule 1 cap PO QAM RF: 0 metformin 500 mg Tablet 1,000 mg PO QAM RF: 0 metformin 500 mg Tablet 1,500 mg PO QPM RF: 0 levothyroxine 150 mcg Tablet 150 mcg PO QAM RF: 0 multivitamin Tablet 1 tab PO QAM RF: 0 cinnamon bark [Cinnamon] 500 mg capsule 1,000 mg PO BID RF: 0 insulin glargine 100 unit/mL solution See Rx Instructions .ROUTE .COMPLEX RF: 0 potassium chloride 10 mEq Tablet Extended Release 0 meq PO DAILY RF: 0 fluticasone propionate [Flonase] 50 mcg/actuation [place],Suspension 1 spray INTRANASAL DIRECTED RF: 0 Eye-Vites Tablet 1 tab PO DAILY RF: 0 sodium chloride [Saline Nasal] 0.65 % Aerosol,[place] 2 spray INTRANASAL DIRECTED PRN (Reason: NASAL DRYNESS) RF: 0 mupirocin 2 % ointment 1 applic topical BID PRN (Reason: NASAL DRYNESS) RF: 0 Referrals Referrals: Kennedy De La Garza, [facility] [Primary Care Provider] -
--- NOTE | 2021-07-30 18:30 | XRay Report ---
XR chest 1V portable CLINICAL HISTORY: Chest Pain COMPARISON STUDY: May 02, 2016 FINDINGS: No pneumothorax. No pleural effusion. Patchy reticular opacities are seen throughout bilateral lungs. Superimposed airspace component is se en within left retrocardiac region and could represent atelectasis or infiltrates.. Accessory azygous lobe is demonstrated. Lung volumes are decreased with crowded lung markings. Cardiomediastinal silhouette is within normal limits in size. No significant pulmonary vascular congestion.. Osseous structures: Mild degenerative changes of the spine. IMPRESSION: 1. Possible atelectasis or infiltrates within left retrocardiac region. 2. The rest of findings as above. ACT 112: Negative or not required by law. The above report was generated using voice recognition software. It may contain grammatical, syntax o r spelling errors. Electronically signed by: Kerline Santiago DO 07/30/2021 6:29 PM
[2021-07-30 19:16] LABS: Basophils # (auto) 0.01 K/uL (0-0.2); Basophils % (auto) 0.2 %; Hemoglobin 15.5 g/dL (14.0-18.0); Immature Granulocytes # (auto) 0.01 K/uL (0.00-0.02); Immature Granulocytes % (auto) 0.2 %; Lymphocytes # (auto) 0.85 K/uL (1.2-3.4); Lymphocytes % (auto) 15.5 %; Mean Corpuscular Hemoglobin 30.7 pg (25-34); Mean Corpuscular Hgb Conc 34.4 g/dL (32-36); Mean Corpuscular Volume 89.1 fL (80-100); Mean Platelet Volume 9.3 fL (7.4-10.4); Monocytes # (auto) 0.42 K/uL (0.11-0.59); Monocytes % (auto) 7.6 %; Neutrophils # (auto) 4.21 K/uL (1.4-6.5); Neutrophils % (auto) 76.5 %; Platelet Count 176 K/uL (130-400); RDW Coefficient of Variation 14.1 % (11.5-14.5); RDW Standard Deviation 45.9 fL (36.4-46.3); Red Blood Count 5.05 M/uL (4.7-6.1)
[2021-07-30 19:18] LABS: iSTAT Creatinine 0.8 mg/dl (0.6-1.3); iSTAT Hemoglobin 16.3 g/dl (14.0-18.0); iSTAT Ionized Calcium 0.97 mmol/l (1.12-1.32); iSTAT Potassium 3.2 mmol/L (3.3-5.0)
[2021-07-30 19:26] LABS: Partial Thromboplastin Ratio 1.1
[2021-07-30 19:30] LABS: Alanine Aminotransferase 47 U/L (12-78); Albumin Level 3.3 gm/dl (3.4-5.0); Aspartate Aminotransferase 61 U/L (15-37); BUN Creatinine Ratio 9.9 (10-20); Blood Urea Nitrogen 10 mg/dl (7-18); Calcium 8.3 mg/dl (8.5-10.1); Carbon Dioxide 30 mmol/L (21-32); Chloride 91 mmol/L (98-107); Creatinine Clr Calc Pharmacy 109.6 ml/min; Est GFR (African American) 91.6 ml/min; Glucose 246 mg/dl (70-99); Lipase 255 U/L (73-393); Potassium 3.1 mmol/L (3.5-5.1); Sodium 131 mmol/L (136-145)
[2021-07-30] MEDS ORDERED: OPTIRAY 320 125ml IV ONE (19:34)
[2021-07-30 19:35] LABS: Albumin Globulin Ratio 0.8 (0.9-2); Alkaline Phosphatase 35 U/L (45-117); Bilirubin,Total 0.4 mg/dl (0.2-1); Globulin 4.2 gm/dl (2.5-4.0); Total Protein 7.5 gm/dl (6.4-8.2); Troponin I < 0.015 ng/ml (0-0.045)
[2021-07-30] MEDS ORDERED: dexAMETHasone**PF** 10 MG/ML VIAL IV ONE (20:06)
--- NOTE | 2021-07-30 20:24 | CT Scan Report ---
CT ANGIOGRAM OF THE CHEST CLINICAL HISTORY: hypoxic and febrile COMPARISON STUDY: No previous studies for comparison. TECHNIQUE: Following the IV administration of 120 mL of Optiray, CT angiogram of the thorax was perfo rmed from the thoracic inlet to the lung bases utilizing the pulmonary embolus protocol. Images are r eviewed in the axial, sagittal, and coronal planes. IV contrast was administered without complication . MIP imaging was performed. A dose lowering technique was utilized adhering to the principles of [place]. CT DOSE: 1084.07 mGy.cm FINDINGS: No definite filling defect is seen within main pulmonary artery to suggest pulmonary embolus however opacification within main pulmonary artery is insufficient for adequate evaluation of pulmonary embol us. Significant motion artifact further degrades image quality. Main pulmonary artery is normal in caliber. No evidence of right heart strain seen. Heart is normal in size without pericardial effusion. Mild to moderate coronary calcifications are se en. There is no axillary, supra clavicle or internal mammary lymphadenopathy seen. Mediastinal lymph node s are slightly prominent measuring up to 1.1 cm in short axis, could be reactive.. Prominent right hi lar lymph node measuring 1.6 cm in short axis is seen. Visualized portion of thyroid gland shows no evidence of focal lesions. Mild fat containing hiatal he aling is seen. Tracheobronchial tree is patent. Patchy mixed reticular and centrilobular groundglass and consolidative opacities are seen throughout bilateral lungs. Evaluation is limited due to significant motion artifact. No definite pleural effusion is seen. Prominent azygos lobe is seen. Limited evaluation of upper abdominal viscera shows no evidence of acute abnormalities. Osseous structures: Multilevel degenerative changes of the spine. IMPRESSION: No definite pulmonary embolus is seen however opacification within main pulmonary artery is insuffici ent for adequate evaluation for pulmonary embolus. Also respiratory motion artifact further limits ev aluation. No secondary signs of pulmonary embolus. Multifocal mixed reticular and airspace consolidative and groundglass opacities are seen throughout b ilateral lungs which could represent atypical pneumonia/Covid. Short-term follow-up with noncontrast CT of the chest on nonemergency basis in 4-6 weeks is recommended to document resolution. The rest of findings as above. ACT 112: Positive. There are findings on this exam that require communication between the performing entity and the patient following Patient Test Result Information Act ([place] Act 112) guidelines. The above report was generated using voice recognition software. It may contain grammatical, syntax o r spelling errors. Electronically signed by: Kerline Santiago DO 07/30/2021 8:23 PM
[2021-07-30] MEDS ORDERED: NovoLIN-R INSULIN PER UNIT CHARGE IV STA (20:30)
[2021-07-30] MEDS ORDERED: POTASSIUM CHLORIDE 10 MEQ TABCR PO STA (20:30)
[2021-07-30] MEDS ORDERED: CALCIUM GLUCONATE 1,000 MG/60 ML BAG IV STA (20:32)
[2021-07-30] MEDS ORDERED: POTASSIUM CHLORIDE 20 MEQ/15 ML UDC PO STA (20:34)
[2021-07-30 20:53] LABS: C Reactive Protein 4.47 mg/dl (0-0.29); Ferritin 523.6 ng/ml (8-388); Magnesium 1.4 mg/dl (1.8-2.4); NT Pro B Type Natriuretic Pept 37 pg/ml (0-900)
[2021-07-30] MEDS ORDERED: REMDESIVIR 200 MG in SODIUM CHLORIDE 0.9% 210 ML IV STA (21:03)
[2021-07-30] MEDS ORDERED: FUROSEMIDE 40 MG/4 ML VIAL IV STA (21:04)
[2021-07-30] MEDS ORDERED: MAGNESIUM SULFATE / D5W 1 GM/100 ML BAG IV STA (21:12)
--- NOTE | 2021-07-30 21:22 | History & Physical Report ---
Date of Service July 30, 2021 Assessment & Plan (1) Pneumonia due to 2019-nCoV: Plan: COVID19 pneumonia with hypoxia- unsure of day of illness ~10-12 - Remdisivir - Lasix 10mg IV to decrease lung edema- as well as will be getting IVPB for multiple electrolyte replacements - Decadron 10mg IV daily - Currently not TOCI candidate and with BMI dosing not available- Decadron increased as above - Azithromycin 500mg PO x1 and then 250mg PO daily - Albuterol nebs scheduled - CRP 4.47, ferritin 523.6 - PCT- pending on admission - BNP 37 - Fibrinogen- pending on admission - Reviewed with patient need for self rotation therapy and proning, he is more able to lay on his side than on his abdomen - CPAP/BiPAP at night- his is normally on CPAP 11cm H20 nightly - Lovenox 40 subq BID- consider increase dosing for BMI- fibrinogen pending (2) Hypoxia: Plan: As above without respiratory failure - secondary to COVID 19 - Self rotation - HFNC/CPAP/BIPAP- titrate to keep Spo2 >92 - Intubation if respiratory failure or unable to maintain oxygenation (3) Sleep apnea: Plan: CPAP nightly 11cm H20 (4) HTN (hypertension): Plan: Continue ARB as renal indicies allow - continue HCTZ daily - Troponin I <0.015 on admission (5) T2DM (type 2 diabetes mellitus): Plan: Hyperglycemic in the EMD- was treated with insulin in ER - Continue Lantus 28/33 units qAM and qPM respectively - Aspart sliding scale with CF 20 and Ratio 1:8 - expect increase with steroids- patient aware of likely need for increased insulin dosing - Hold Metformin - Hold Ozempic (6) Hyperlipidemia: Plan: On omega 3 as outpatient - hold while in house (7) Hypothyroidism: Plan: Continue synthroid (8) Back strain: Plan: Chronic back pain - will likely prevent from lying prone - on Glucosamine (9) DJD (degenerative joint disease) of knee: Plan: As above (10) Hypokalemia: Plan: On K replacment at home - replete orally follow in morning with lasix dosing (11) Hypomagnesemia: Plan: Likelydue to poor oral intake over the past week - replete follow in morning (12) Hypocalcemia: Plan: As above History of Present Illness Chief Complaint: Covid-19 Primary Care Provider: Kennedy De La Garza, [employer]-C 66 YOM with past medical history of: Obesity, DMII (on insulin), HTN, HLD, PADMINI. Patient comes in to the [facility] tonight for increased dyspnea and cough. The patient is unsure of when he started feeling ill, as these symptoms have been ongoing for the past few months, but he feels that for the past 2 weeks it has gotten much worse. 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 He was able to say that he lost his sense of taste and smell around 10 days ago. The patient is hypoxic in the EMD and currently on HFNC at 60L and 35%. In the EMD he had routine labs drawn, and CTA of the chest performed. There is no large pulmonary embolism noted, but degraded exam secondary to respiratory artifact. Patient was given Decadron in the EMD, he is also noted to be hypokalemic, hypomagnesia, and hypocalcemic via ionized. Will replete his electrolytes as his appetite has been poor and oral intake has been low. He does get short of breath with movement in bed. Will admit patient to PCU, COVID precautions, continue Decadron, glucose control, will place Sarabia catheter secondary to his hypoxia and dyspnea. He is a not vaccinated and his COVID test on admission is POSITIVE. Allergies Allergy/AdvReac Type Severity Reaction Status Date / Time No Known Allergies Allergy Verified 07/30/21 18:44 Home Medications Medication Instructions Recorded Confirmed Type glucosamine sulf dipot 1 cap PO QAM 12/28/19 07/30/21 History chlr,msm,chond 550 mg-C 30 mg-julieta 1 mg capsule (Glucosamine Chondroitin) hydrochlorothiazide 25 mg tablet 25 mg PO BID 12/28/19 07/30/21 History levothyroxine 150 mcg tablet 150 mcg PO QAM 12/28/19 07/30/21 History metformin 500 mg tablet 1,000 mg PO QAM 12/28/19 07/30/21 History metformin 500 mg tablet 1,500 mg PO QPM 12/28/19 07/30/21 History multivitamin 1 tab PO QAM 12/28/19 07/30/21 History oxybutynin chloride 10 mg 10 mg PO QPM 12/28/19 07/30/21 History tablet,extended release 24 hr Raspberry ketones 1 tab PO BID 10/14/20 07/30/21 History blood sugar diagnostic (Accu-Chek #10 ea 10/14/20 05/14/21 History Guide test strips) lancets (Accu-Chek Softclix #100 ea 10/14/20 05/20/21 History Lancets) cinnamon bark 500 mg capsule 1,000 mg PO BID 02/05/21 07/30/21 History (Cinnamon) losartan 25 mg tablet 25 mg PO DAILY 04/08/21 07/30/21 History acetaminophen 500 mg oral powder 1,000 mg PO DIRECTED PRN ea 05/20/21 07/30/21 History packet (Tylenol Extra Strength) diphenhydramine HCl 25 mg capsule 25 mg PO DAILY cap 05/20/21 07/30/21 History (Benadryl) insulin aspart U-100 100 unit/mL 100 unit SUBCUT TID ml 05/20/21 07/30/21 History subcutaneous solution (Novolog U-100 Insulin aspart) insulin glargine 100 unit/mL See Rx Instructions .ROUTE .COMPLEX 05/20/21 History subcutaneous solution omega-3 fatty acids 1,000 mg 1,000 mg PO DAILY 05/20/21 07/30/21 History capsule (Fish Oil Concentrate) semaglutide 1 mg/dose (2 mg/1.5 0.5 mg SUBCUT ONCE 30 Days #11.25 05/20/21 07/30/21 Rx mL) subcutaneous pen injector ml turmeric 400 mg capsule 400 mg PO DAILY cap 05/20/21 07/30/21 History fluticasone propionate 50 1 spray INTRANASAL DIRECTED 07/30/21 07/30/21 History mcg/actuation nasal spray,suspension mupirocin 2 % topical ointment 1 applic TOPICAL BID PRN 07/30/21 07/30/21 History potassium chloride 10 mEq 0 meq PO DAILY 07/30/21 07/30/21 History tablet,extended release sodium chloride 0.65 % nasal spray 2 spray INTRANASAL DIRECTED PRN 07/30/21 07/30/21 History aerosol (Saline Nasal) vitamin A-vitamin C-vit E-min 1 tab PO DAILY 07/30/21 07/30/21 History tablet Past Med/Surg History Medical History Bilateral primary osteoarthritis of knee Diabetes mellitus, type 2 Diabetic peripheral neuropathy History of kidney stones Hyperlipidemia Hypertension Hypothyroidism Obesity Osteoarthritis Sleep apnea uses 2L O2 at night Slow to wake up after anesthesia T2DM (type 2 diabetes mellitus) Urinary urgency Surgical History History of tonsillectomy and adenoidectomy History of uvulopalatopharyngoplasty Hx of knee surgery right x3 Family History Father Coronary heart disease Allergies Hearing loss Mother Hypotension Brother Diabetes Other No family history of adverse response to anesthesia No family history of bleeding disorder Social History Smoking Status: Never smoker 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); Hx Alcohol Use: Yes Alcohol Intake Frequency: Monthly or Less Hx Substance Use: No Preferred Language: Iranian Communication Ability: Effective Beliefs That Will Affect Care: None marital status: Current Living Situation: Spouse current occupational status: retired current occupation: self employed currently(2020) Feels Safe at Home: Yes Assistive Devices: CPAP, Glasses and Oxygen - at Night Review of Systems Review of Systems: REVIEW OF SYSTEMS: Constitutional: (+) fever, sweats or chills Eyes: No diplopia, no worsening or blurred vision ENT: (+) loss of taste and smell, normal hearing, no trouble swallowing Respiratory: (+) cough, sputum, dyspnea at rest or on exertion Cardiovascular: No chest pain, tightness or palpitations Abdomen: (+) loss of appetite, No pain, nausea, vomiting, diarrhea or constipation Musculoskeletal: (+) chronic knee joint pain, NO calf pain, swelling Neurologic: No weakness, numbness/tingling, or balance problems Psychiatric: No anxiety or depression Skin: No rash or itch Physical Exam Physical Exam: PHYSICAL EXAM: General: awake, alert, fatigued appearing Head: Normocephalic, atraumatic ENT: PERRL, EOMI, no pharyngeal exudate, mucous membranes moist Neuro: AAO x 3, speech clear and appropriate, strength intact bilaterally 5/5, sensation intact and equal all extremities and dermatomes, no pronator drift Chest: equal rise and fall of the chest, tachypneic with movement, frequent cough, scattered rhonci and wheeze throughout, on HFNC Cardiac: Regular rate and rhythm, telemetry reviewed- sinus tach, skin warm dry, cap refill <3 seconds, peripheral pulses +2 no JVD, no murmur, no edema GI: NABS x 4 quadrants, soft, nontender to palpation, no rebound, guarding or tenderness :Sarabia placed, no pain, no CVA tenderness, Extremities: Normal inspection, no peripheral edema or erythema, calfs nontender to palpation Psych: Normal mood and affect Skin: no rash or erythema Results & Data Results & Data ([facility]) Vital Signs (Past 12 Hours) Vital Signs Temp Pulse Pulse Resp BP BP Pulse Ox 07/30/21 20:37 106 H 24 95 07/30/21 20:18 105 H 145/74 H 93 07/30/21 19:37 89 129/65 87 L 07/30/21 19:03 91 H 20 164/94 H 90 07/30/21 18:20 97 H 164/94 H 90 07/30/21 17:17 96 H 20 90 07/30/21 17:10 37.7 C H 103 H 20 136/80 86 L 07/30/21 17:03 39.3 C H 96 H 22 164/94 H 82 L Laboratory Results Abnormal lab results 07/30/21 07/30/21 07/30/21 Range/Units 19:05 19:05 19:05 Lymph # (Auto) 0.85 L (1.2-3.4) K/uL POC Sodium (135-144) mmol/L Sodium 131 L (136-145) mmol/L POC Potassium (3.3-5.0) mmol/L Potassium 3.1 L (3.5-5.1) mmol/L POC Chloride (101-112) mmol/L Chloride 91 L (98-107) mmol/L BUN/Creatinine Ratio 9.9 L (10-20) Glucose 246 H (70-99) mg/dl POC Glucose (70-99) mg/dl POC Glucose (other) (70-99) mg/dl Calcium 8.3 L (8.5-10.1) mg/dl POC Ioniz Calcium Deja (1.12-1.32) mmol/l Magnesium 1.4 L (1.8-2.4) mg/dl Ferritin 523.6 H (8-388) ng/ml AST 61 H (15-37) U/L Alkaline Phosphatase 35 L (45-117) U/L Lactate Dehydrogenase (87-241) U/L C-Reactive Protein 4.47 H (0-0.29) mg/dl Albumin 3.3 L (3.4-5.0) gm/dl Globulin 4.2 H (2.5-4.0) gm/dl Albumin/Globulin Ratio 0.8 L (0.9-2) SARS-CoV-2 (PCR) POSITIVE A* (Negative) 07/30/21 07/30/21 07/30/21 Range/Units 19:05 19:06 20:50 Lymph # (Auto) (1.2-3.4) K/uL POC Sodium 131 L (135-144) mmol/L Sodium (136-145) mmol/L POC Potassium 3.2 L (3.3-5.0) mmol/L Potassium (3.5-5.1) mmol/L POC Chloride 87 L (101-112) mmol/L Chloride (98-107) mmol/L BUN/Creatinine Ratio (10-20) Glucose (70-99) mg/dl POC Glucose 268 H (70-99) mg/dl POC Glucose (other) 249 H (70-99) mg/dl Calcium (8.5-10.1) mg/dl POC Ioniz Calcium Deja 0.97 L (1.12-1.32) mmol/l Magnesium (1.8-2.4) mg/dl Ferritin (8-388) ng/ml AST (15-37) U/L Alkaline Phosphatase (45-117) U/L Lactate Dehydrogenase 406 H (87-241) U/L C-Reactive Protein (0-0.29) mg/dl Albumin (3.4-5.0) gm/dl Globulin (2.5-4.0) gm/dl Albumin/Globulin Ratio (0.9-2) SARS-CoV-2 (PCR) (Negative) Diagnostic Findings Chest X-Ray 07/30/21 17:17 XR chest 1V portable CLINICAL HISTORY: Chest Pain COMPARISON STUDY: May 02, 2016 FINDINGS: No pneumothorax. No pleural effusion. Patchy reticular opacities are seen throughout bilateral lungs. Superimposed airspace component is seen within left retrocardiac region and could represent atelectasis or infiltrates.. Accessory azygous lobe is demonstrated. Lung volumes are decreased with crowded lung markings. Cardiomediastinal silhouette is within normal limits in size. No significant pulmonary vascular congestion.. Osseous structures: Mild degenerative changes of the spine. IMPRESSION: 1. Possible atelectasis or infiltrates within left retrocardiac region. 2. The rest of findings as above. ACT 112: Negative or not required by law. The above report was generated using voice recognition software. It may contain grammatical, syntax or spelling errors. Electronically signed by: Kerline Santiago DO 07/30/2021 6:29 PM Chest CTA 07/30/21 17:28 CT ANGIOGRAM OF THE CHEST CLINICAL HISTORY: hypoxic and febrile COMPARISON STUDY: No previous studies for comparison. TECHNIQUE: Following the IV administration of 120 mL of Optiray, CT angiogram of the thorax was performed from the thoracic inlet to the lung bases utilizing the pulmonary embolus protocol. Images are reviewed in the axial, sagittal, and coronal planes. IV contrast was administered without complication. MIP imaging was performed. A dose lowering technique was utilized adhering to the principles of ALARA. CT DOSE: 1084.07 mGy.cm FINDINGS: No definite filling defect is seen within main pulmonary artery to suggest pulmonary embolus however opacification within main pulmonary artery is insufficient for adequate evaluation of pulmonary embolus. Significant motion artifact further degrades image quality. Main pulmonary artery is normal in caliber. No evidence of right heart strain seen. Heart is normal in size without pericardial effusion. Mild to moderate coronary calcifications are seen. There is no axillary, supra clavicle or internal mammary lymphadenopathy seen. Mediastinal lymph nodes are slightly prominent measuring up to 1.1 cm in short axis, could be reactive.. Prominent right hilar lymph node measuring 1.6 cm in short axis is seen. Visualized portion of thyroid gland shows no evidence of focal lesions. Mild fat containing hiatal healing is seen. Tracheobronchial tree is patent. Patchy mixed reticular and centrilobular groundglass and consolidative opacities are seen throughout bilateral lungs. Evaluation is limited due to significant motion artifact. No definite pleural effusion is seen. Prominent azygos lobe is seen. Limited evaluation of upper abdominal viscera shows no evidence of acute abnormalities. Osseous structures: Multilevel degenerative changes of the spine. IMPRESSION: No definite pulmonary embolus is seen however opacification within main pulmonary artery is insufficient for adequate evaluation for pulmonary embolus. Also respiratory motion artifact further limits evaluation. No secondary signs of pulmonary embolus. Multifocal mixed reticular and airspace consolidative and groundglass opacities are seen throughout bilateral lungs which could represent atypical pneumonia/Covid. Short-term follow-up with noncontrast CT of the chest on nonemergency basis in 4-6 weeks is recommended to document resolution. The rest of findings as above. ACT 112: Positive. There are findings on this exam that require communication between the performing entity and the patient following Patient Test Result Information Act ([place] Act 112) guidelines. The above report was generated using voice recognition software. It may contain grammatical, syntax or spelling errors. Electronically signed by: Kerline Santiago DO 07/30/2021 8:23 PM Medications Administered Discontinued Medications Dexamethasone Sodium Phosphate (DexamethasonePf 10 Mg/Ml Vial) 6 mg IV NOW ONE Stop: 07/30/21 20:07 Last Admin: 07/30/21 20:27 Dose: 6 mg Documented by: [id number] Calcium Gluconate () 1,000 mg in 60 mls @ 240 mls/hr IV NOW STA Stop: 07/30/21 20:46 Last Admin: 07/30/21 20:59 Dose: 240 mls/hr Documented by: [id number] Insulin Human Regular (Novolin-R Insulin Per Unit Charge) 6 units IV NOW STA Stop: 07/30/21 20:31 Last Admin: 07/30/21 21:00 Dose: 4 units Documented by: [id number] Cosigned by: [id number] Ioversol (Optiray 320 125ml) 120 ml IV ONCE ONE Stop: 07/30/21 19:35 Last Admin: 07/30/21 19:34 Dose: 120 ml Documented by: [id number] Potassium Chloride (Potassium Chloride 10 Meq Tabcr) 40 meq PO NOW STA Stop: 07/30/21 20:31 Last Admin: 07/30/21 20:59 Dose: 40 meq Documented by: [id number] Potassium Chloride (Potassium Chloride 20 Meq/15 Ml Udc) 40 meq PO NOW STA Stop: 07/30/21 20:35 Last Admin: 07/30/21 21:01 Dose: Not Given Documented by: [id number] Home Medications glucosamine sulf dipot chlr,msm,chond 550 mg-C 30 mg-julieta 1 mg capsule (Glucosamine Chondroitin) 1 cap PO QAM 12/28/19 [History Confirmed 07/30/21] hydrochlorothiazide 25 mg tablet 25 mg PO BID 12/28/19 [History Confirmed 07/30/21] levothyroxine 150 mcg tablet 150 mcg PO QAM 12/28/19 [History Confirmed 0 07/30/21] metformin 500 mg tablet 1,000 mg PO QAM 12/28/19 [History Confirmed 07/30/21] metformin 500 mg tablet 1,500 mg PO QPM 12/28/19 [History Confirmed 07/30/21] multivitamin 1 tab PO QAM 12/28/19 [History Confirmed 07/30/21] oxybutynin chloride 10 mg tablet,extended release 24 hr 10 mg PO QPM 12/28/19 [History Confirmed 07/30/21] Raspberry ketones 1 tab PO BID 10/14/20 [History Confirmed 07/30/21] blood sugar diagnostic (Accu-Chek Guide test strips) #10 ea 10/14/20 [History Confirmed 05/14/21] lancets (Accu-Chek Softclix Lancets) #100 ea 10/14/20 [History Confirmed 05/20/21] cinnamon bark 500 mg capsule (Cinnamon) 1,000 mg PO BID 02/05/21 [History Confirmed 07/30/21] losartan 25 mg tablet 25 mg PO DAILY 04/08/21 [History Confirmed 07/30/21] acetaminophen 500 mg oral powder packet (Tylenol Extra Strength) 1,000 mg PO DIRECTED PRN ea 05/20/21 [History Confirmed 07/30/21] diphenhydramine HCl 25 mg capsule (Benadryl) 25 mg PO DAILY cap 05/20/21 [History Confirmed 07/30/21] insulin aspart U-100 100 unit/mL subcutaneous solution (Novolog U-100 Insulin aspart) 100 unit SUBCUT TID ml 05/20/21 [History Confirmed 07/30/21] insulin glargine 100 unit/mL subcutaneous solution See Rx Instructions .ROUTE .COMPLEX 05/20/21 [History Confirmed 07/30/21] omega-3 fatty acids 1,000 mg capsule (Fish Oil Concentrate) 1,000 mg PO DAILY 05/20/21 [History Confirmed 07/30/21] semaglutide 1 mg/dose (2 mg/1.5 mL) subcutaneous pen injector 0.5 mg SUBCUT ONCE 30 Days #11.25 ml 05/20/21 [Rx Confirmed 07/30/21] turmeric 400 mg capsule 400 mg PO DAILY cap 05/20/21 [History Confirmed 07/30/21] fluticasone propionate 50 mcg/actuation nasal spray,suspension 1 spray INTRANASAL DIRECTED 07/30/21 [History Confirmed 07/30/21] mupirocin 2 % topical ointment 1 applic TOPICAL BID PRN 07/30/21 [History Confirmed 07/30/21] potassium chloride 10 mEq tablet,extended release 0 meq PO DAILY 07/30/21 [History Confirmed 07/30/21] sodium chloride 0.65 % nasal spray aerosol (Saline Nasal) 2 spray INTRANASAL DIRECTED PRN 07/30/21 [History Confirmed 07/30/21] vitamin A-vitamin C-vit E-min tablet 1 tab PO DAILY 07/30/21 [History Confirmed 07/30/21] Active Medications Remdesivir 200 mg/ Sodium (Chloride) 250 mls @ 125 mls/hr IV ONE STA; Protocol Stop: 07/30/21 23:02 Magnesium Sulfate/Dextrose (Magnesium Sulfate / D5w) 1 gm in 100 mls @ 50 mls/hr IV Q2H STA Stop: 07/30/21 23:11 ECG Additional Comments: Normal sinus rhythm Low voltage QRS Inferior infarct (cited on or before 02-MAY-2016) Cannot rule out Anterior infarct , age undetermined Abnormal ECG When compared with ECG of 13-DEC-2017 06:01, Questionable change in QRS duration Minimal criteria for Anterior infarct are now Present Code Status & VTE Plan Code Status CODE: FULL VTE: SCD's, Lovenox 40mg Sub q q12 VTE Prophylaxis Plan VTE Prophylaxis will be ordered: Yes Supervising Physician Co-Signing Physician Notes Patient seen and examined, chart reviewed, case discussed with JERROD Pierson and I agree with his assessment and plan as above. In brief, patient is a 66yo male with history of DM, HTN, Obesity presenting with hypoxemia in setting of Covid- 19 PNA. Patient is on appx day 10-12 of illness. Presently on HFNC 60L 35% FiO2 - doing well. He wears CPAP HS at home On exam he is resting comfortably on right side. HFNC in place. Nontoxic in appearance. Oriented x 4 HEENT - NC/AT, PERRL, EOMI, MMM, Neck supple Heart - +S1/S2, regular, no m/r/g Lungs - diminished breath sounds in bases with faint crackles, end-expiratory wheezing, breathing comfortably without distress Abd - +BS, soft, NT/ND, obese Ext - no edema Labs and images reviewed Assessment/Plan - -Dexamethasone, Remdesivir -Lasix x 1 -Azithromycin -Supplemental O2 as needed - CPAP qHS -Electrolyte repletion as above -Remainder of plan as above PG Care Time/CCT Total # of Minutes Spent Total Time Spent with Patient: Total time spent is greater than 50% in coordination of care (as documented) at patient's floor/unit and/or counseling patient: Coding Level of Care Code 96044 Initial Inpt Care Lvl 3 Diagnoses Pneumonia due to 2019-nCoV U07.1; J12.82 Hypoxia R09.02 Sleep apnea G47.30 T2DM (type 2 diabetes mellitus) E11.9 Hyperlipidemia E78.5 Hypothyroidism E03.9 Back strain S39.012A DJD (degenerative joint disease) of knee M17.10 Hypokalemia E87.6 Hypomagnesemia E83.42 Hypocalcemia E83.51 HTN (hypertension) I10
[2021-07-30 22:14] LABS: Fibrinogen 431 mg/dl (184-400)
[2021-07-30] MEDS ORDERED: GLUCOSE 40% GEL 15 GM TUBE PO PRN (23:20)
[2021-07-30] MEDS ORDERED: GLUCAGON FOR INJ 1 MG VIAL SQ PRN (23:20)
[2021-07-30] MEDS ORDERED: GLUCOSE 10 TABS/TUBE PO PRN (23:20)
[2021-07-30] MEDS ORDERED: LANTUS PER UNIT CHARGE SQ SCH (23:20)
[2021-07-30] MEDS ORDERED: DEXTROSE 50% 50 ML SYRINGE IV PRN (23:20)
[2021-07-30] MEDS ORDERED: ACETAMINOPHEN 325 MG TAB PO PRN (23:20)
[2021-07-30] MEDS ORDERED: ONDANSETRON INJ 2 MG/ML 2 ML VIAL IV PRN (23:20)
[2021-07-30] MEDS ORDERED: SODIUM CHLORIDE 0.65% NA SOLN 45 ML (OCEAN) PRN (23:20)
[2021-07-31] MEDS ORDERED: CALCIUM GLUCONATE 10% 2,000 MG in SODIUM CHLORIDE 0.9% 50 ML IV ONE (01:00)
[2021-07-31] MEDS ORDERED: INSULIN GLARGINE SOLOSTAR 100 UNITS/ML 3 ML PEN SC SCH ×2 (01:00→09:00)
[2021-07-31] MEDS ORDERED: AZITHROMYCIN 250 MG TAB PO ONE (01:00)
[2021-07-31] MEDS: SODIUM CHLORIDE 0.9% 10ML FLUSH IV SCH (01:15)
[2021-07-31] MEDS ORDERED: MUPIROCIN 2% OINT 22 GM TUBE EXT PRN (01:42)
[2021-07-31] MEDS: INSULIN ASPART 100 UNITS/ML 3 ML PEN SC SCH ×5 (01:44→19:34)
[2021-07-31] MEDS: ENOXAPARIN INJ 40 MG/0.4 ML SYR SQ SCH ×2 (01:46→12:17)
[2021-07-31] MEDS: hydroCHLOROthiazide 25 MG TAB PO SCH ×3 (01:48→19:35)
[2021-07-31] MEDS: OXYBUTYNIN CHLORIDE XL 5 MG TABCR PO SCH ×2 (01:49→19:35)
[2021-07-31] MEDS: ALBUTEROL 0.5% NEB SOLN 2.5 MG/0.5 ML VIAL NEB SCH ×4 (02:21→19:39)
[2021-07-31] MEDS: LEVOTHYROXINE SODIUM 150 MCG TABLET PO SCH (05:31)
[2021-07-31 07:41] LABS: Basophils # (auto) 0.01 K/uL (0-0.2); Basophils % (auto) 0.2 %; Hematocrit (blood only) 45.2 % (42-52); Hemoglobin 15.4 g/dL (14.0-18.0); Immature Granulocytes # (auto) 0.01 K/uL (0.00-0.02); Immature Granulocytes % (auto) 0.2 %; Lymphocytes # (auto) 0.79 K/uL (1.2-3.4); Lymphocytes % (auto) 16.1 %; Mean Corpuscular Hemoglobin 30.2 pg (25-34); Mean Corpuscular Hgb Conc 34.1 g/dL (32-36); Mean Corpuscular Volume 88.6 fL (80-100); Mean Platelet Volume 9.4 fL (7.4-10.4); Monocytes # (auto) 0.45 K/uL (0.11-0.59); Monocytes % (auto) 9.2 %; Neutrophils # (auto) 3.65 K/uL (1.4-6.5); Neutrophils % (auto) 74.3 %; Platelet Count 170 K/uL (130-400); RDW Coefficient of Variation 14.1 % (11.5-14.5); White Blood Count 4.91 K/uL (4.8-10.8)
[2021-07-31] MEDS: diphenhydrAMINE Capsule 25 MG CAP PO SCH (08:06)
[2021-07-31] MEDS: dexAMETHasone 10 MG in SYRINGE 0 ML IV SCH (08:06)
[2021-07-31] MEDS: LOSARTAN POTASSIUM 25 MG TAB PO SCH (08:06)
[2021-07-31 08:17] LABS: BUN Creatinine Ratio 10.3 (10-20); Calcium 8.6 mg/dl (8.5-10.1); Creatinine Clr Calc Pharmacy 120.8 ml/min; Est GFR (African American) 101.4 ml/min; Est GFR (Non-African American) 87.5 ml/min; Magnesium 1.9 mg/dl (1.8-2.4); Potassium 3.3 mmol/L (3.5-5.1)
[2021-07-31] MEDS: INSULIN GLARGINE SOLOSTAR 100 UNITS/ML 3 ML PEN SC SCH ×2 (08:30→19:34)
[2021-07-31] MEDS ORDERED: FLUTICASONE PROPIONATE NA SPR 16 GM BTL PRN (09:00)
[2021-07-31] MEDS: POTASSIUM CHLORIDE CRTAB 20 MEQ TABCR PO SCH ×3 (10:22→19:36)
[2021-07-31] MEDS: AZITHROMYCIN 250 MG TAB PO SCH (17:28)
--- NOTE | 2021-07-31 18:23 | Electrocardiogram Report ---
Test Reason : Blood Pressure : / mmHG Vent. Rate : 096 BPM Atrial Rate : 096 BPM P-R Int : 166 ms QRS Dur : 084 ms QT Int : 358 ms P-R-T Axes : 014 -28 010 degrees QTc Int : 452 ms Poor data quality, interpretation may be adversely affected Normal sinus rhythm Low voltage QRS Nonspecific ST abnormality Inferior infarct (cited on or before 02-MAY-2016) Poor R wave progression, consider anterior NE vs. lead placement vs. LVH Abnormal ECG Confirmed by Vaibhav Nassar ([id number]) on 07/31/2021 6:22:51 PM Referred By: REFERRED SELF Confirmed By:Souleymane Nassar
[2021-07-31] MEDS: REMDESIVIR 100 MG in SODIUM CHLORIDE 0.9% 230 ML IV SCH (19:58)
--- NOTE | 2021-07-31 20:25 | Hospitalist Progress Note ---
Date of Service July 31, 2021 Assessment & Plan (1) Pneumonia due to 2019-nCoV: Plan: severe disease exact day of illness uncertain, perhaps 10-14 days into the illness remains on HFNC high-settings encouraged proning encouraged pulm toilet - ordered flutter valve and incentive halie day #2 of dexamethasone 10mg IV day #2 of 5 - remdesivir no evidence of complicating PE or bacterial superinfection did receive lasix with copious output but laying flat today without orthopnea suggesting compensated state CRP not meeting criteria for tocilizumab repeat crp in am (2) Acute respiratory failure with hypoxia: Plan: 2nd severe COVID-19 pneumonia see above consider BIPAP/CPAP at night with blended O2, HFNC during the day see #1 above (3) Hypomagnesemia: Plan: repleted; resolved replete low K (4) Hypokalemia: Plan: 2nd to poor oral intake and HCTZ use KCL 40meq TID repeat BMP am (5) Diabetes mellitus type 2, uncontrolled: Plan: HbA1C 7.8% in April high requirements of insulin at home uncontrolled due to severe illness/stress and steroids plan - increase lantus to 50 units BID increase novolog correction and carb ratio low threshold for insulin drip (6) Morbid obesity with BMI of 40.0-44.9, adult: Plan: BMI 42 (7) Sleep apnea: Plan: CPAP at home familiy bring his home mask would use CPAP/BIPAP at night (8) Hypothyroidism: Plan: TSH 1.8 in January cont synthroid (9) Hyperlipidemia: Plan: not on meds for such (10) DVT prophylaxis: Plan: increase lovenox to 0.5mg/kg BID given morbid obesity and high inflammatory markers at some point obtain baseline dimer left message for on voicemail at home patient at risk of worsening disease Admission and Anticipated Discharge Date Admission Date: July 30, 2021 Subjective patient reports being sick for 14 days or so he is dyspneic with moving but not at rest no orthopnea during my visit he was satting 88% on 65% FiO2 - laying on back encouraged prone position; if too hard for him - then side encourage flutter/incentive (both ordered) he has poor appetite poor fatigue had altered taste/smell early in his illness course no history of lung disease thinks 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 Review of Systems Review of Systems: gen - fevers/chills/sweats last pm; poor appetite CV - no orthopnea or chest pain GI - no nausea or pain Pulm - cough, dyspnea on exertion Physical Exam Physical Exam: gen - morbidly obese, able to talk in complete sentences, sickly mouth - MM slightly dry, no thrush neck - no JVD heart - RRR, s1 s2, no murmur lungs - decreased BS bases, no rales or wheeze, airation fair abd - obese, soft, NT, ND, BS+ ext - trace edema b/l, pulses 2+ b/l psych - a/o x 3 Results & Data Results & Data ([facility]) Vital Signs (Past 12 Hours) Vital Signs Temp Pulse Pulse Resp BP Pulse Ox 07/31/21 19:41 75 20 93 07/31/21 19:19 37.2 C 73 18 135/82 88 L 07/31/21 16:00 70 07/31/21 15:41 37.0 C 72 12 131/79 92 07/31/21 14:59 76 18 91 07/31/21 12:03 74 16 96 07/31/21 11:24 37.1 C 71 12 106/63 93 Laboratory Results Laboratory Results - last 24 hr 07/30/21 07/30/21 07/30/21 19:05 19:05 20:50 WBC RBC Hgb Hct MCV MCH MCHC RDW Std Deviation RDW Coeff of Mary Plt Count MPV Immature Gran % (Auto) Neut % (Auto) Lymph % (Auto) [place] % (Auto) Eos % (Auto) Baso % (Auto) Neut # (Auto) Lymph # (Auto) [place] # (Auto) Eos # (Auto) Baso # (Auto) Immature Gran # (Auto) Fibrinogen Sodium Potassium Chloride Carbon Dioxide Anion Gap BUN Creatinine Est Cr Clr Drug Dosing Est GFR ( Amer) Est GFR (Non-Af Amer) BUN/Creatinine Ratio Glucose POC Glucose 268 H Calcium Ionized Calcium Magnesium 1.4 L Ferritin 523.6 H Lactate Dehydrogenase 406 H C-Reactive Protein 4.47 H NT-Pro-B Natriuret Pep 37 Procalcitonin 07/30/21 07/30/21 07/31/21 20:52 20:52 01:40 WBC RBC Hgb Hct MCV MCH MCHC RDW Std Deviation RDW Coeff of Mary Plt Count MPV Immature Gran % (Auto) Neut % (Auto) Lymph % (Auto) [place] % (Auto) Eos % (Auto) Baso % (Auto) Neut # (Auto) Lymph # (Auto) [place] # (Auto) Eos # (Auto) Baso # (Auto) Immature Gran # (Auto) Fibrinogen 431 H Sodium Potassium Chloride Carbon Dioxide Anion Gap BUN Creatinine Est Cr Clr Drug Dosing Est GFR ( Amer) Est GFR (Non-Af Amer) BUN/Creatinine Ratio Glucose POC Glucose 331 H* Calcium Ionized Calcium Magnesium Ferritin Lactate Dehydrogenase C-Reactive Protein NT-Pro-B Natriuret Pep Procalcitonin 0.07 07/31/21 07/31/21 07/31/21 07:01 07:01 07:01 WBC 4.91 RBC 5.10 Hgb 15.4 Hct 45.2 MCV 88.6 MCH 30.2 MCHC 34.1 RDW Std Deviation 46.0 RDW Coeff of Mary 14.1 Plt Count 170 MPV 9.4 Immature Gran % (Auto) 0.2 Neut % (Auto) 74.3 Lymph % (Auto) 16.1 [place] % (Auto) 9.2 Eos % (Auto) 0.0 Baso % (Auto) 0.2 Neut # (Auto) 3.65 Lymph # (Auto) 0.79 L [place] # (Auto) 0.45 Eos # (Auto) 0.00 Baso # (Auto) 0.01 Immature Gran # (Auto) 0.01 Fibrinogen Sodium 130 L Potassium 3.3 L Chloride 94 L Carbon Dioxide 26 Anion Gap 10.0 BUN 9 Creatinine 0.91 Est Cr Clr Drug Dosing 120.8 Est GFR ( Amer) 101.4 Est GFR (Non-Af Amer) 87.5 BUN/Creatinine Ratio 10.3 Glucose 289 H POC Glucose Calcium 8.6 Ionized Calcium 0.93 L Magnesium 1.9 Ferritin Lactate Dehydrogenase C-Reactive Protein NT-Pro-B Natriuret Pep Procalcitonin 07/31/21 07/31/21 07/31/21 07:01 07:33 07:34 WBC RBC Hgb Hct MCV MCH MCHC RDW Std Deviation RDW Coeff of Mary Plt Count MPV Immature Gran % (Auto) Neut % (Auto) Lymph % (Auto) [place] % (Auto) Eos % (Auto) Baso % (Auto) Neut # (Auto) Lymph # (Auto) [place] # (Auto) Eos # (Auto) Baso # (Auto) Immature Gran # (Auto) Fibrinogen Sodium Potassium Chloride Carbon Dioxide Anion Gap BUN Creatinine Est Cr Clr Drug Dosing Est GFR ( Amer) Est GFR (Non-Af Amer) BUN/Creatinine Ratio Glucose POC Glucose 301 H* 306 H* Calcium Ionized Calcium Magnesium Ferritin Lactate Dehydrogenase C-Reactive Protein 5.77 H NT-Pro-B Natriuret Pep Procalcitonin 07/31/21 07/31/21 07/31/21 11:22 11:23 16:29 WBC RBC Hgb Hct MCV MCH MCHC RDW Std Deviation RDW Coeff of Amry Plt Count MPV Immature Gran % (Auto) Neut % (Auto) Lymph % (Auto) [place] % (Auto) Eos % (Auto) Baso % (Auto) Neut # (Auto) Lymph # (Auto) [place] # (Auto) Eos # (Auto) Baso # (Auto) Immature Gran # (Auto) Fibrinogen Sodium Potassium Chloride Carbon Dioxide Anion Gap BUN Creatinine Est Cr Clr Drug Dosing Est GFR ( Amer) Est GFR (Non-Af Amer) BUN/Creatinine Ratio Glucose POC Glucose 363 H* 361 H* 328 H* Calcium Ionized Calcium Magnesium Ferritin Lactate Dehydrogenase C-Reactive Protein NT-Pro-B Natriuret Pep Procalcitonin 07/31/21 07/31/21 16:30 19:27 WBC RBC Hgb Hct MCV MCH MCHC RDW Std Deviation RDW Coeff of Mary Plt Count MPV Immature Gran % (Auto) Neut % (Auto) Lymph % (Auto) [place] % (Auto) Eos % (Auto) Baso % (Auto) Neut # (Auto) Lymph # (Auto) [place] # (Auto) Eos # (Auto) Baso # (Auto) Immature Gran # (Auto) Fibrinogen Sodium Potassium Chloride Carbon Dioxide Anion Gap BUN Creatinine Est Cr Clr Drug Dosing Est GFR ( Amer) Est GFR (Non-Af Amer) BUN/Creatinine Ratio Glucose POC Glucose 336 H* 265 H Calcium Ionized Calcium Magnesium Ferritin Lactate Dehydrogenase C-Reactive Protein NT-Pro-B Natriuret Pep Procalcitonin PG Care Time/CCT Total # of Minutes Spent Total Time Spent with Patient: Total time spent is greater than 50% in coordination of care (as documented) at patient's floor/unit and/or counseling patient: Coding Level of Care Code 87160 Subseq Hosp Care Lvl 3 Diagnoses Pneumonia due to 2019-nCoV U07.1; J12.82 Acute respiratory failure with hypoxia J96.01 Hypomagnesemia E83.42 Hypokalemia E87.6 Diabetes mellitus type 2, uncontrolled E11.65 Morbid obesity with BMI of 40.0-44.9, adult E66.01; Z68.41 Sleep apnea G47.30 Hypothyroidism E03.9 Hyperlipidemia E78.5 DVT prophylaxis Z29.9
[2021-08-01] MEDS: SODIUM CHLORIDE 0.9% 10ML FLUSH IV SCH ×2 (00:06→20:01)
[2021-08-01] MEDS: ALBUTEROL 0.5% NEB SOLN 2.5 MG/0.5 ML VIAL NEB SCH ×4 (00:11→19:30)
[2021-08-01] MEDS: ENOXAPARIN INJ 40 MG/0.4 ML SYR SQ SCH (01:37)
[2021-08-01] MEDS: LEVOTHYROXINE SODIUM 150 MCG TABLET PO SCH (05:26)
[2021-08-01 07:18] LABS: BUN Creatinine Ratio 16.6 (10-20); Calcium 8.5 mg/dl (8.5-10.1); Creatinine Clr Calc Pharmacy 126.8 ml/min; Est GFR (African American) 104.7 ml/min; Est GFR (Non-African American) 90.4 ml/min; Potassium 3.2 mmol/L (3.5-5.1)
[2021-08-01 07:19] LABS: C Reactive Protein 3.49 mg/dl (0-0.29)
[2021-08-01] MEDS: INSULIN GLARGINE SOLOSTAR 100 UNITS/ML 3 ML PEN SC SCH ×2 (08:29→20:03)
[2021-08-01] MEDS: diphenhydrAMINE Capsule 25 MG CAP PO SCH (08:29)
[2021-08-01] MEDS: LOSARTAN POTASSIUM 25 MG TAB PO SCH (08:29)
[2021-08-01] MEDS: INSULIN ASPART 100 UNITS/ML 3 ML PEN SC SCH ×4 (08:31→20:03)
[2021-08-01] MEDS: dexAMETHasone 10 MG in SYRINGE 0 ML IV SCH (08:34)
[2021-08-01] MEDS: POTASSIUM CHLORIDE CRTAB 20 MEQ TABCR PO SCH ×3 (09:51→20:02)
--- NOTE | 2021-08-01 12:08 | XRay Report ---
XR chest 1V portable HISTORY: 66 years-old Male increasing o2 requirements acute hypoxia COMPARISON: Chest radiograph and CTA chest 07/30/2021 TECHNIQUE: Portable semierect AP view of the chest FINDINGS: Cardiac silhouette is enlarged. Moderate vascular congestion with progressively worsened patchy bilat eral airspace opacities. Azygos lobe and fissure. Right hemidiaphragmatic elevation without pneumotho rax or large pleural effusion. Bones appear grossly intact. IMPRESSION: 1. Progressively worsened bilateral airspace opacities compatible with multifocal pneumonia. 2. Cardiomegaly with pulmonary vascular congestion. ACT 112: Negative or not required by law. The above report was generated using voice recognition software. It may contain grammatical, syntax o r spelling errors. Electronically signed by: Narciso Wasserman M.D. 08/01/2021 12:07 PM
[2021-08-01] MEDS ORDERED: FUROSEMIDE 40 MG in SYRINGE 0 ML IV ONE (12:30)
--- NOTE | 2021-08-01 12:48 | Hospitalist Progress Note ---
Date of Service August 01, 2021 Assessment & Plan (1) Pneumonia due to 2019-nCoV: Plan: worse clinically and radiographically with escalating high-flow requirements severe disease exact day of illness uncertain, perhaps 10-14 days into the illness - certainly in the inflammatory phase of COVID encouraged proning encouraged pulm toilet with flutter valve and incentive halie day #3 of dexamethasone 10mg IV (high dose) day #3 of 5 - remdesivir day # 2 of 5 of zithromax no evidence of complicating PE or bacterial superinfection did receive lasix with copious output at time of admission - will give 40mg lasix IV again this am to keep negative fluid balance CRP <7.5 thus not meeting criteria for tocilizumab (I discussed his candidacy with Dr Walker from pulmonary) notified Dr Eaton from ICU of pt's worsening status repeat labs including procalcitonin in am ] (2) Acute respiratory failure with hypoxia: Plan: 2nd severe COVID-19 pneumonia see above plan - HFNC during the day, CPAP 11cm with blended O2 at HS PRONING HIGHLY ENCOURAGED; may be his means of staying off vent he voiced understanding nursing to encourage him as well - at least a trial of self-proning (3) Hypomagnesemia: Plan: repleted; resolved replete low K (4) Hypokalemia: Plan: 2nd to poor oral intake and HCTZ use repeat another round of KCL 40meq TID repeat BMP am (5) Diabetes mellitus type 2, uncontrolled: Plan: HbA1C 7.8% in April high requirements of insulin at home uncontrolled due to severe illness/physical stress and steroids plan - increased lantus to 50 units BID increase novolog correction and carb ratio (CF 6, carb ratio 1:2) low threshold for insulin drip (6) Morbid obesity with BMI of 40.0-44.9, adult: Plan: BMI 42 (7) Sleep apnea: Plan: CPAP 11cm with blended O2 (8) Hypothyroidism: Plan: TSH 1.8 in January cont synthroid (9) Hyperlipidemia: Plan: not on meds for such (10) DVT prophylaxis: Plan: increased lovenox to 0.5mg/kg BID given morbid obesity and high inflammatory markers check baseline dimer in am left message for on voicemail at home yesterday did speak with her today by phone, plan of care discussed she is sick with COVID symptoms as well and is isolating at home Admission and Anticipated Discharge Date Admission Date: July 30, 2021 Subjective tele overnight wnl pt feels worse today he admits he cannot take deep breaths as it causes discomfort and coughing fits he has not attempted proning he can lay on left side poor appetite considerable fatigue, weakness he did not use CPAP last night family did drop off his CPAP mask from home he has had escalating high-flow requirements today cxr obtained - considerable worsening of infiltrates he understands how sick he is and admits to being scared we prayed together for recovery and improvement Review of Systems Review of Systems: gen - no fevers or chills; some sweats; +fatigue, weakness and anorexia pulm - cough, congestion, dyspnea with minimal activity cv - no chest pain, no orthopnea, no edema GI - no abd pain or nausea Physical Exam Physical Exam: gen - morbidly obese, able to talk in complete sentences, sickly and tired-appearing; looks worse today; with rolling over in bed his sats dropped to the 80s mouth - MMM neck - no JVD heart - RRR, s1 s2, no murmur lungs - decreased BS bases, worsening rales b/l bases, mild tachypnea especially w/ moving in bed abd - obese, soft, NT, ND, BS+ ext - trace edema b/l, pulses 2+ b/l psych - a/o x 3 Results & Data Results & Data ([facility]) Vital Signs (Past 12 Hours) Vital Signs Temp Pulse Pulse Resp BP Pulse Ox Pulse Ox 08/01/21 11:11 37.1 C 79 22 129/75 88 L 08/01/21 10:45 75 81 H 94 08/01/21 10:39 81 18 92 08/01/21 08:49 37.5 C 76 20 113/42 L 92 08/01/21 08:00 79 94 08/01/21 07:51 18 94 08/01/21 03:21 37.2 C 77 26 H 101/57 L 93 08/01/21 02:16 72 20 94 Laboratory Results Laboratory Results - last 24 hr 07/31/21 07/31/21 07/31/21 16:29 16:30 19:27 Sodium Potassium Chloride Carbon Dioxide Anion Gap BUN Creatinine Est Cr Clr Drug Dosing Est GFR ( Amer) Est GFR (Non-Af Amer) BUN/Creatinine Ratio Glucose POC Glucose 328 H* 336 H* 265 H Calcium C-Reactive Protein 08/01/21 08/01/21 08/01/21 06:20 07:17 11:28 Sodium 133 L Potassium 3.2 L Chloride 96 L Carbon Dioxide 31 Anion Gap 6.0 BUN 14 D Creatinine 0.86 Est Cr Clr Drug Dosing 126.8 Est GFR ( Amer) 104.7 Est GFR (Non-Af Amer) 90.4 BUN/Creatinine Ratio 16.6 Glucose 97 POC Glucose 99 198 H Calcium 8.5 C-Reactive Protein 3.49 H Diagnostic Findings Chest X-Ray 08/01/21 11:35 XR chest 1V portable HISTORY: 66 years-old Male increasing o2 requirements acute hypoxia COMPARISON: Chest radiograph and CTA chest 07/30/2021 TECHNIQUE: Portable semierect AP view of the chest FINDINGS: Cardiac silhouette is enlarged. Moderate vascular congestion with progressively worsened patchy bilateral airspace opacities. Azygos lobe and fissure. Right hemidiaphragmatic elevation without pneumothorax or large pleural effusion. Bones appear grossly intact. IMPRESSION: 1. Progressively worsened bilateral airspace opacities compatible with multifocal pneumonia. 2. Cardiomegaly with pulmonary vascular congestion. ACT 112: Negative or not required by law. The above report was generated using voice recognition software. It may contain grammatical, syntax or spelling errors. Electronically signed by: Narciso Wasserman M.D. 08/01/2021 12:07 PM PG Care Time/CCT Total # of Minutes Spent Total Time Spent with Patient: Total time spent is greater than 50% in coordination of care (as documented) at patient's floor/unit and/or counseling patient: Coding Level of Care Code 40488 Subseq Hosp Care Lvl 3 Diagnoses Pneumonia due to 2019-nCoV U07.1; J12.82 Acute respiratory failure with hypoxia J96.01 Hypomagnesemia E83.42 Hypokalemia E87.6 Diabetes mellitus type 2, uncontrolled E11.65 Morbid obesity with BMI of 40.0-44.9, adult E66.01; Z68.41 Sleep apnea G47.30 Hypothyroidism E03.9 Hyperlipidemia E78.5 DVT prophylaxis Z29.9
[2021-08-01] MEDS: ENOXAPARIN 80 MG/0.8 ML SYR SQ SCH ×2 (12:54→23:06)
[2021-08-01] MEDS: AZITHROMYCIN 250 MG TAB PO SCH (18:10)
[2021-08-01] MEDS: REMDESIVIR 100 MG in SODIUM CHLORIDE 0.9% 230 ML IV SCH (20:01)
[2021-08-01] MEDS: OXYBUTYNIN CHLORIDE XL 5 MG TABCR PO SCH (20:01)
[2021-08-02] MEDS: ALBUTEROL 0.5% NEB SOLN 2.5 MG/0.5 ML VIAL NEB SCH ×3 (00:28→12:21)
[2021-08-02] MEDS: LEVOTHYROXINE SODIUM 150 MCG TABLET PO SCH (06:36)
[2021-08-02 08:10] LABS: Hematocrit (blood only) 45.4 % (42-52); Hemoglobin 15.3 g/dL (14.0-18.0); Mean Corpuscular Hemoglobin 29.9 pg (25-34); Mean Corpuscular Hgb Conc 33.7 g/dL (32-36); Mean Corpuscular Volume 88.7 fL (80-100); Mean Platelet Volume 9.8 fL (7.4-10.4); Platelet Count 268 K/uL (130-400); Red Blood Count 5.12 M/uL (4.7-6.1); White Blood Count 8.14 K/uL (4.8-10.8)
[2021-08-02 08:16] LABS: D Dimer 540 ug/L FEU (0-500)
[2021-08-02] MEDS: dexAMETHasone 10 MG in SYRINGE 0 ML IV SCH (08:26)
[2021-08-02] MEDS: diphenhydrAMINE Capsule 25 MG CAP PO SCH (08:26)
[2021-08-02 08:35] LABS: BUN Creatinine Ratio 17.4 (10-20); Calcium 8.6 mg/dl (8.5-10.1); Creatinine Clr Calc Pharmacy 139.2 ml/min; Est GFR (African American) 108.5 ml/min; Est GFR (Non-African American) 93.6 ml/min; Potassium 3.7 mmol/L (3.5-5.1)
[2021-08-02] MEDS: INSULIN ASPART 100 UNITS/ML 3 ML PEN SC SCH ×4 (09:26→21:02)
[2021-08-02] MEDS: INSULIN GLARGINE SOLOSTAR 100 UNITS/ML 3 ML PEN SC SCH ×2 (09:27→21:02)
[2021-08-02] MEDS: ENOXAPARIN 80 MG/0.8 ML SYR SQ SCH ×2 (13:23→23:30)
[2021-08-02] MEDS ORDERED: FUROSEMIDE 20 MG in SYRINGE 0 ML IV ONE (16:59)
[2021-08-02] MEDS ORDERED: POTASSIUM CHLORIDE CRTAB 20 MEQ TABCR PO STA (16:59)
[2021-08-02] MEDS: AZITHROMYCIN 250 MG TAB PO SCH (17:29)
[2021-08-02] MEDS ORDERED: FUROSEMIDE 40 MG/4 ML VIAL IV ONE (17:30)
[2021-08-02] MEDS: REMDESIVIR 100 MG in SODIUM CHLORIDE 0.9% 230 ML IV SCH (19:49)
[2021-08-02] MEDS: SODIUM CHLORIDE 0.9% 10ML FLUSH IV SCH (19:53)
[2021-08-02] MEDS: ALBUTEROL 0.083% NEBU SOLN 3 ML VIAL NEB SCH (20:34)
--- NOTE | 2021-08-02 21:06 | Hospitalist Progress Note ---
Date of Service August 02, 2021 Assessment & Plan (1) Pneumonia due to 2019-nCoV: Plan: continues with severe hypoxia leading to the need for CPAP and HFNC. exact day of illness uncertain, perhaps 14-15 days into the illness - certainly in the inflammatory phase of COVID. again encouraged proning again encouraged pulm toilet with flutter valve and incentive halie day #4 of dexamethasone 10mg IV (high dose) day #4 of 5 - remdesivir day # 3 of 5 of zithromax no evidence of complicating PE or bacterial superinfection; dimer only modestly elevated, procal negative did receive lasix with copious output at time of admission a gave additional 40mg lasix IV yesterday will give 20mg IV x of lasix today and re-eval CRP <7.5 thus did not meet criteria for tocilizumab (I discussed his candidacy with Dr Walker from pulmonary) cont CPAP or HFNC along with proning & aggressive pulm toilet (2) Acute respiratory failure with hypoxia: Plan: 2nd severe COVID-19 pneumonia see above plan - HFNC during the day, CPAP 11cm with blended O2 at HS high FiO2 requirements proning again encouraged (3) Hypomagnesemia: Plan: repleted; resolved (4) Hypokalemia: Plan: 2nd to poor oral intake and HCTZ use repleted and now normal give additional K supplementation with afternoon lasix (5) Diabetes mellitus type 2, uncontrolled: Plan: HbA1C 7.8% in April high requirements of insulin at home uncontrolled due to severe illness/physical stress and steroids control is improving with adjustments in his basal-bolus regimen as below cont lantus 50 units BID leave current novolog correction and carb ratio low threshold for insulin drip if BSGs consistently >300 (6) Morbid obesity with BMI of 40.0-44.9, adult: Plan: BMI 42-43 (7) Sleep apnea: Plan: CPAP 11cm with blended O2 (8) Hypothyroidism: Plan: TSH 1.8 in January cont synthroid (9) Hyperlipidemia: Plan: not on meds for such (10) DVT prophylaxis: Plan: cont lovenox 0.5mg/kg BID given morbid obesity and high inflammatory markers updated by phone today (11) Hyponatremia: Plan: mild likely 2nd to diuretics bmp am Plan: extensively updated by phone on 08/02/21 Admission and Anticipated Discharge Date Admission Date: July 30, 2021 Subjective patient slept with CPAP 11cm all night and has had it on most of today. attempts to remove CPAP in order to switch to HFNC were unsuccessful (desaturation occurred). he does not feel any worse than yesterday - perhaps a bit better. appetite modestly improved. he ate at the side of the bed. taste/smell modestly improved. no chest pain but it is very hard to take deep breaths. using his incentive leads to coughing fits. no abd pain, nausea, emesis. no fevers or chills overnight. nursing helped him prone for a brief period of time today. tele overnight wnl. Review of Systems Review of Systems: gen - no fevers or chills; +fatigue mouth - no lesions, no sore throat CV - no orthopnea Pulm - cough, dyspnea, PUGH present GI - no vomiting Physical Exam Physical Exam: gen - morbidly obese, able to talk in complete sentences, nasal CPAP in place; sickly and tired-appearing but looks slightly better today mouth - MMM neck - no JVD heart - RRR, s1 s2, no murmur lungs - decreased BS bases, rales b/l half way up posterior back; mild tachypnea; wheeze heard when he coughs abd - obese, soft, NT, ND, BS+ ext - trace edema b/l, pulses 2+ b/l psych - a/o x 3 Results & Data Results & Data ([facility]) Vital Signs (Past 12 Hours) Vital Signs Temp Pulse Pulse Resp BP Pulse Ox Pulse Ox 08/02/21 20:35 76 76 26 H 95 08/02/21 19:39 36.9 C 77 20 121/66 94 08/02/21 15:41 37.2 C 79 22 129/71 91 08/02/21 15:35 84 23 95 08/02/21 15:13 84 08/02/21 12:53 82 30 H 86 L 08/02/21 12:19 84 22 91 08/02/21 11:43 37.0 C 84 19 122/80 96 08/02/21 10:08 76 08/02/21 09:58 99 Laboratory Results Laboratory Results - last 24 hr 09/11/21 09/11/21 09/11/21 06:41 06:41 06:41 WBC 8.14 RBC 5.12 Hgb 15.3 Hct 45.4 MCV 88.7 MCH 29.9 MCHC 33.7 RDW Std Deviation 46.0 RDW Coeff of Mary 14.0 Plt Count 268 D MPV 9.8 D-Dimer 540 H* Sodium 133 L Potassium 3.7 D Chloride 98 Carbon Dioxide 29 Anion Gap 6.0 BUN 14 Creatinine 0.79 Est Cr Clr Drug Dosing 139.2 Est GFR ( Amer) 108.5 Est GFR (Non-Af Amer) 93.6 BUN/Creatinine Ratio 17.4 Glucose 67 L POC Glucose Calcium 8.6 AST 56 H ALT 37 Total Creatine Kinase 242 Procalcitonin Specimen Hemolysis 08/02/21 08/02/21 08/02/21 06:41 07:11 11:41 WBC RBC Hgb Hct MCV MCH MCHC RDW Std Deviation RDW Coeff of Mary Plt Count MPV D-Dimer Sodium Potassium Chloride Carbon Dioxide Anion Gap BUN Creatinine Est Cr Clr Drug Dosing Est GFR ( Amer) Est GFR (Non-Af Amer) BUN/Creatinine Ratio Glucose POC Glucose 83 98 Calcium AST ALT Total Creatine Kinase Procalcitonin < 0.05 Specimen Hemolysis 08/02/21 08/02/21 16:32 20:32 WBC RBC Hgb Hct MCV MCH MCHC RDW Std Deviation RDW Coeff of Mary Plt Count MPV D-Dimer Sodium Potassium Chloride Carbon Dioxide Anion Gap BUN Creatinine Est Cr Clr Drug Dosing Est GFR ( Amer) Est GFR (Non-Af Amer) BUN/Creatinine Ratio Glucose POC Glucose 140 H 186 H Calcium AST ALT Total Creatine Kinase Procalcitonin Specimen Hemolysis PG Care Time/CCT Total # of Minutes Spent Total Time Spent with Patient: Total time spent is greater than 50% in coordination of care (as documented) at patient's floor/unit and/or counseling patient: Coding Level of Care Code 78976 Subseq Hosp Care Lvl 3 Diagnoses Pneumonia due to 2019-nCoV U07.1; J12.82 Acute respiratory failure with hypoxia J96.01 Hypomagnesemia E83.42 Hypokalemia E87.6 Diabetes mellitus type 2, uncontrolled E11.65 Morbid obesity with BMI of 40.0-44.9, adult E66.01; Z68.41 Sleep apnea G47.30 Hypothyroidism E03.9 Hyperlipidemia E78.5 DVT prophylaxis Z29.9 Hyponatremia E87.1
[2021-08-03] MEDS: ALBUTEROL 0.083% NEBU SOLN 3 ML VIAL NEB SCH ×4 (00:13→19:56)
[2021-08-03] MEDS: LEVOTHYROXINE SODIUM 150 MCG TABLET PO SCH (05:13)
[2021-08-03 07:30] LABS: BUN Creatinine Ratio 16.7 (10-20); Calcium 8.1 mg/dl (8.5-10.1); Creatinine Clr Calc Pharmacy 141.4 ml/min; Est GFR (Non-African American) 94.1 ml/min; Magnesium 2.1 mg/dl (1.8-2.4); Potassium 3.4 mmol/L (3.5-5.1)
[2021-08-03] MEDS: dexAMETHasone 10 MG in SYRINGE 0 ML IV SCH (08:34)
[2021-08-03] MEDS ORDERED: POTASSIUM CHLORIDE CRTAB 20 MEQ TABCR PO STA (08:36)
[2021-08-03] MEDS: INSULIN GLARGINE SOLOSTAR 100 UNITS/ML 3 ML PEN SC SCH ×2 (08:36→20:45)
[2021-08-03] MEDS: INSULIN ASPART 100 UNITS/ML 3 ML PEN SC SCH ×4 (08:37→20:45)
[2021-08-03] MEDS: diphenhydrAMINE Capsule 25 MG CAP PO SCH (09:37)
[2021-08-03] MEDS: ENOXAPARIN 80 MG/0.8 ML SYR SQ SCH ×2 (11:37→23:55)
[2021-08-03] MEDS ORDERED: POTASSIUM CHLORIDE CRTAB 20 MEQ TABCR PO ONE (13:00)
[2021-08-03] MEDS: AZITHROMYCIN 250 MG TAB PO SCH (18:06)
[2021-08-03] MEDS: REMDESIVIR 100 MG in SODIUM CHLORIDE 0.9% 230 ML IV SCH (20:11)
[2021-08-03] MEDS: SODIUM CHLORIDE 0.9% 10ML FLUSH IV SCH (20:12)
--- NOTE | 2021-08-03 22:03 | Hospitalist Progress Note ---
Date of Service August 03, 2021 Assessment & Plan (1) Pneumonia due to 2019-nCoV: Plan: unchanged continues with severe hypoxia leading to the need for CPAP and HFNC alternating. during my visit with him he was satting upper 80s on 90% FiO2. I spoke with respiratory - if he cannot maintain sats >90% then increase CPAP to 14. exact day of illness uncertain, perhaps 15-16 days into the illness - certainly in the inflammatory phase of COVID. again encouraged ongoing proning pulm toilet with flutter valve and incentive halie day #5 of dexamethasone 10mg IV (high dose) day #5 of 5 - remdesivir day #4 of 5 of zithromax although procal has been wnl no evidence of complicating PE or bacterial superinfection; dimer only modestly elevated, procal negative have been diuresing him with fair results - thus, will give 20mg IV x of lasix again today CRP <7.5 thus did not meet criteria for tocilizumab (I discussed his candidacy with Dr Walker from pulmonary this week) cont CPAP or HFNC along with proning & aggressive pulm toilet (2) Acute respiratory failure with hypoxia: Plan: 2nd severe COVID-19 pneumonia see above plan - HFNC during the day, CPAP 11cm with blended O2 at HS high FiO2 requirements proning encouraged (3) Acute pulmonary edema: Plan: has received daily diuresis since admission suspect we are approaching or we are at euvolemia no further lasix following today's dose (4) Hypomagnesemia: Plan: repleted; resolved (5) Hypokalemia: Plan: 2nd to poor oral intake and HCTZ use (pre-admission) along with lasix give additional K supplementation today bmp am (6) Diabetes mellitus type 2, uncontrolled: Plan: HbA1C 7.8% in April high requirements of insulin at home (novolog 100 units TID w/ meals, etc) uncontrolled due to severe illness/physical stress and steroids control is improving with adjustments in his basal-bolus regimen as below cont lantus 50 units BID leave current novolog correction and carb ratio low threshold for insulin drip if BSGs consistently >300 (7) Morbid obesity with BMI of 40.0-44.9, adult: Plan: BMI 42-43 (8) Sleep apnea: Plan: CPAP 11cm with blended O2 (9) Hypothyroidism: Plan: TSH 1.8 in January cont synthroid (10) Hyperlipidemia: Plan: not on meds for such (11) DVT prophylaxis: Plan: cont lovenox 0.5mg/kg BID given morbid obesity and high inflammatory markers updated by phone several times this week left message for today as well (12) Hyponatremia: Plan: mild likely 2nd to diuretics bmp am Plan: extensively updated by phone on 08/02/21 Admission and Anticipated Discharge Date Admission Date: July 30, 2021 Subjective no events overnight used nasal CPAP to sleep, then changed to HFNC this am at very high settings (100% FiO2) at his request earlier today he was changed back to nasal CPAP he has sat in the chair for several hours today appetite is improving slowly he still cannot take deep breaths as this leads to coughing fits chest tightness occurs w/ those fits taste and smell still mildly altered continues with PUGH with minimal activity he did prone some overnight and again this am decent UOP with lasix given this am no new issues tele overnight wnl Review of Systems Review of Systems: gen - no fevers, no chills; weak, fatigued, anorexia CV - no chest pain, no orthopnea pulm - cough, congestion, dyspnea GI - no abd pain Physical Exam Physical Exam: gen - morbidly obese, able to talk in complete sentences but gets slightly winded with such;, nasal CPAP in place; sickly and again tired-appearing -- looks very tired in comparison to yesterday mouth - MM slightly dry, no thrush neck - no JVD heart - RRR, s1 s2, no murmur lungs - decreased BS bases, fine rales b/l 1/[address] up posterior back; mild tachypnea; no wheeze today; no accessory muscle use abd - obese, soft, NT, ND, BS+ ext - no edema; pulses 2+ b/l psych - a/o x 3 Results & Data Results & Data ([facility]) Vital Signs (Past 12 Hours) Vital Signs Temp Pulse Pulse Pulse Resp BP BP 08/03/21 20:20 37.0 C 83 18 101/58 L 08/03/21 19:56 89 90 22 08/03/21 16:30 82 08/03/21 16:00 84 27 H 08/03/21 15:42 37.1 C 80 19 110/73 08/03/21 12:44 86 86 30 H 08/03/21 11:27 37.1 C 81 19 117/65 Pulse Ox 08/03/21 20:20 93 08/03/21 19:56 90 08/03/21 16:30 08/03/21 16:00 94 08/03/21 15:42 95 08/03/21 12:44 93 08/03/21 11:27 94 Laboratory Results Laboratory Results - last 24 hr 08/03/21 08/03/21 08/03/21 06:26 07:46 11:28 Sodium 133 L Potassium 3.4 L Chloride 98 Carbon Dioxide 30 Anion Gap 5.0 BUN 13 Creatinine 0.78 Est Cr Clr Drug Dosing 141.4 Est GFR ( Amer) 109.0 Est GFR (Non-Af Amer) 94.1 BUN/Creatinine Ratio 16.7 Glucose 137 H POC Glucose 127 H 148 H Calcium 8.1 L Magnesium 2.1 08/03/21 08/03/21 16:21 20:37 Sodium Potassium Chloride Carbon Dioxide Anion Gap BUN Creatinine Est Cr Clr Drug Dosing Est GFR ( Amer) Est GFR (Non-Af Amer) BUN/Creatinine Ratio Glucose POC Glucose 257 H 346 H* Calcium Magnesium PG Care Time/CCT Total # of Minutes Spent Total Time Spent with Patient: Total time spent is greater than 50% in coordination of care (as documented) at patient's floor/unit and/or counseling patient: Coding Level of Care Code 21810 Subseq Hosp Care Lvl 3 Diagnoses Pneumonia due to 2019-nCoV U07.1; J12.82 Acute respiratory failure with hypoxia J96.01 Hypomagnesemia E83.42 Hypokalemia E87.6 Diabetes mellitus type 2, uncontrolled E11.65 Morbid obesity with BMI of 40.0-44.9, adult E66.01; Z68.41 Sleep apnea G47.30 Hypothyroidism E03.9 Hyperlipidemia E78.5 DVT prophylaxis Z29.9 Hyponatremia E87.1 Acute pulmonary edema J81.0
[2021-08-04] MEDS: ALBUTEROL 0.083% NEBU SOLN 3 ML VIAL NEB SCH ×4 (00:52→20:13)
[2021-08-04] MEDS: LEVOTHYROXINE SODIUM 150 MCG TABLET PO SCH (05:13)
[2021-08-04 08:34] LABS: BUN Creatinine Ratio 16.3 (10-20); Calcium 8.3 mg/dl (8.5-10.1); Creatinine Clr Calc Pharmacy 163.2 ml/min; Est GFR (Non-African American) 100.1 ml/min; Potassium 3.7 mmol/L (3.5-5.1)
[2021-08-04] MEDS: dexAMETHasone 10 MG in SYRINGE 0 ML IV SCH (08:54)
[2021-08-04] MEDS: diphenhydrAMINE Capsule 25 MG CAP PO SCH (08:55)
[2021-08-04] MEDS: INSULIN ASPART 100 UNITS/ML 3 ML PEN SC SCH ×4 (09:10→19:58)
[2021-08-04] MEDS: INSULIN GLARGINE SOLOSTAR 100 UNITS/ML 3 ML PEN SC SCH ×2 (09:12→19:57)
[2021-08-04] MEDS ORDERED: FUROSEMIDE 20 MG in SYRINGE 0 ML IV ONE (12:17)
--- NOTE | 2021-08-04 12:27 | Hospitalist Progress Note ---
Date of Service August 04, 2021 Assessment & Plan (1) Pneumonia due to 2019-nCoV: Plan: continues with severe hypoxia leading to the need for CPAP and HFNC alternating, but mostly CPAP desaturated this morning to 79% while on 40L and 100% FiO2 while laying on his right side recovered quickly with CPAP nasal pillow, PEEP 14 and FiO2 100% over two weeks since illness began again encouraged ongoing proning pulm toilet with flutter valve and incentive halie day #6 of dexamethasone 10mg IV (high dose) completed remdesivir on 08/03 completed zithromax on 08/04 no evidence of complicating PE or bacterial superinfection; dimer only modestly elevated, procal negative have been diuresing him with fair results - thus, will give 20mg IV x of lasix again today CRP <7.5 thus did not meet criteria for tocilizumab, was d/w pulmonology cont CPAP or HFNC along with proning & aggressive pulm toilet at risk of progressing to need for intubation and ventilation (2) Acute respiratory failure with hypoxia: Plan: due to severe COVID-19 pneumonia see above CPAP and HFNC alternating but needing CPAP if he is completely CPAP dependent for next 24 hours will speak with pulmonology tomorrow (3) Acute pulmonary edema: Plan: has received daily diuresis since admission suspect we are approaching or we are at euvolemia give Lasix 20mg IV again today, follow response (4) Hypomagnesemia: Plan: repleted; resolved (5) Hypokalemia: Plan: K is 3.7 repeat BMP tomorrow (6) Diabetes mellitus type 2, uncontrolled: Plan: HbA1C 7.8% in April high requirements of insulin at home (novolog 100 units TID w/ meals, etc) increased lantus 50 units BID on 08/03 leave current novolog correction and carb ratio monitor for hypoglycemia, hyperglycemia (7) Morbid obesity with BMI of 40.0-44.9, adult: Plan: BMI 42-43 (8) Sleep apnea: Plan: CPAP 11cm with blended O2 (9) Hypothyroidism: Plan: TSH 1.8 in January cont synthroid (10) Hyperlipidemia: Plan: not on meds for such (11) DVT prophylaxis: Plan: cont lovenox 0.5mg/kg BID given morbid obesity and high inflammatory markers discussed with today total time spent today 33 minutes (12) Hyponatremia: Plan: mild likely 2nd to diuretics bmp am Plan: extensively updated by phone on 08/02/21 Admission and Anticipated Discharge Date Admission Date: July 30, 2021 Subjective patient has been CPAP dependent, PEEP 11 and FiO2 70% at night and this morning changed to high flow 40L and 100% this morning, lasted for two hours, saturations dropped to 79% and he could not recover he says he feels really fatigued, does not feel short of breath, minimal cough placed back on CPAP with PEEP 14 and FiO2 100% and saturations dorys quickly to 96%, resp therapy will titrate down FiO2 patient is eating okay, had Cheerios and yogurt for breakfast he has a keyes in place, concentrated urine, no Lasix attempted, will give a dose today no fever/chills, no diarrhea, no nausea/vomiting, no neurological deficits reviewed chart and labs Review of Systems Review of Systems: All systems reviewed & are unremarkable except as noted in Subjective Constitutional: + fatigue and + weakness; no fever, no chills and no sweats Respiratory: + cough, + dyspnea and + dyspnea on exertion; no wheezing Cardiovascular: no chest pain and no edema Gastrointestinal: no abdominal pain, no nausea, no vomiting, no constipation and no diarrhea/loose stools Physical Exam Constitutional: well developed, well nourished, + ill appearing, + morbidly obese and + frail appearing; no acute distress Neck: trachea midline and + thick neck Respiratory: + uses accessory muscles, + cough and + tachypneic; no respiratory distress and no labored breathing Auscultation: lungs clear to auscultation bilaterally; no crackles and no wheezes Cardiovascular: Rate/Rhythm: regular rate and regular rhythm Heart Sounds: normal S1 and normal S2; no murmur Extremities: normal capillary refill and + edema (trace in ankles) Gastrointestinal (Abdomen): normal bowel sounds, soft, nontender, no hepatosplenomegaly Musculoskeletal: no cyanosis or clubbing, extremities motor strength 5/5 Skin: no rashes, warm and dry Neurologic: normal touch/pain/proprioception, CN's II-XI intact bilaterally, moves all extremities and awake; no focal motor deficits Psychiatric: A+Ox3, euthymic affect Results & Data Results & Data ([facility]) Vital Signs (Past 12 Hours) Vital Signs Temp Pulse Pulse Pulse Resp BP Pulse Ox 08/04/21 12:12 37.1 C 86 29 H 117/91 90 08/04/21 11:08 82 22 89 L 08/04/21 08:00 08/04/21 07:44 71 71 25 H 93 08/04/21 07:42 36.6 C 75 24 95/43 L 92 08/04/21 04:57 36.9 C 79 18 110/54 L 92 08/04/21 03:30 77 27 H 91 08/04/21 00:52 72 25 H 91 Pulse Ox 08/04/21 12:12 08/04/21 11:08 08/04/21 08:00 88 L 08/04/21 07:44 08/04/21 07:42 08/04/21 04:57 08/04/21 03:30 08/04/21 00:52 Laboratory Results Laboratory Results - last 24 hr 08/03/21 08/03/21 08/04/21 16:21 20:37 06:45 Sodium 134 L Potassium 3.7 Chloride 100 Carbon Dioxide 29 Anion Gap 4.0 BUN 11 Creatinine 0.67 Est Cr Clr Drug Dosing 163.2 Est GFR ( Amer) 116.0 Est GFR (Non-Af Amer) 100.1 BUN/Creatinine Ratio 16.3 Glucose 119 H POC Glucose 257 H 346 H* Calcium 8.3 L 08/04/21 08/04/21 07:44 12:00 Sodium Potassium Chloride Carbon Dioxide Anion Gap BUN Creatinine Est Cr Clr Drug Dosing Est GFR ( Amer) Est GFR (Non-Af Amer) BUN/Creatinine Ratio Glucose POC Glucose 124 H 164 H Calcium Medications Administered Current Inpatient Medications Acetaminophen (Acetaminophen 325 Mg Tab) 650 mg PO Q4H PRN PRN Reason: Pain or Fever Stop: 08/29/21 23:19 Last Admin: 07/31/21 01:46 Dose: 650 mg Documented by: Albuterol (Albuterol 0.083% Nebu Soln 3 Ml Vial) 2.5 mg NEB Q6R [facility] Stop: 09/01/21 18:59 Last Admin: 08/04/21 12:15 Dose: 2.5 mg Documented by: Azithromycin (Azithromycin 250 Mg Tab) 250 mg PO Q24H [facility] Stop: 08/07/21 17:59 Last Admin: 08/03/21 18:06 Dose: 250 mg Documented by: Dextrose (Dextrose 50% 50 Ml Syringe) 25 - 50 ml IV UD PRN; Protocol PRN Reason: Hypoglycemia Protocol Stop: 08/29/21 23:19 Diphenhydramine HCl (Diphenhydramine Capsule 25 Mg Cap) 25 mg PO DAILY [facility] Stop: 08/30/21 08:59 Last Admin: 08/04/21 08:55 Dose: 25 mg Documented by: Enoxaparin Sodium (Enoxaparin 80 Mg/0.8 Ml Syr) 70 mg SQ Q12H [facility] Stop: 08/31/21 11:59 Last Admin: 08/03/21 23:55 Dose: 70 mg Documented by: Fluticasone Propionate (Fluticasone Propionate Na Spr 16 Gm Btl) 1 sprays NA DAILY PRN PRN Reason: Nasal Congestion Stop: 08/30/21 08:59 Furosemide (Furosemide 40 Mg/4 Ml Vial) 20 mg IV ONE ONE Stop: 08/04/21 12:31 Glucagon (Glucagon For Inj 1 Mg Vial) 1 mg SQ UD PRN; Protocol PRN Reason: Hypoglycemia Protocol Stop: 08/29/21 23:19 Glucose (Glucose 10 Tabs/Tube) 4 - 8 tabs PO UD PRN; Protocol PRN Reason: Hypoglycemia Protocol Stop: 08/29/21 23:19 Glucose (Glucose 40% Gel 15 Gm Tube) 15 - 30 gm PO UD PRN; Protocol PRN Reason: Hypoglycemia Protocol Stop: 08/29/21 23:19 Hydrochlorothiazide (Hydrochlorothiazide 25 Mg Tab) 25 mg PO BID [facility] Stop: 08/30/21 00:59 Last Admin: 07/31/21 19:35 Dose: 25 mg Documented by: Dexamethasone 10 mg/ Syringe 2.5 mls @ 1 mls/min IV DAILY [facility] Stop: 08/10/21 08:59 Last Admin: 08/04/21 08:54 Dose: 1 mls/min Documented by: Insulin Aspart (Insulin Aspart 100 Units/Ml 3 Ml Pen) 0 units SC ACHS [facility] Stop: 08/30/21 00:59 Last Admin: 08/04/21 09:10 Dose: 25 units Documented by: Insulin Glargine (Insulin Glargine Solostar 100 Units/Ml 3 Ml Pen) 50 units SC QAM [facility] Stop: 08/30/21 08:59 Last Admin: 08/04/21 09:12 Dose: 50 units Documented by: Insulin Glargine (Insulin Glargine Solostar 100 Units/Ml 3 Ml Pen) 50 units SC HS [facility] Stop: 08/30/21 20:59 Last Admin: 08/03/21 20:45 Dose: 50 units Documented by: Levothyroxine Sodium (Levothyroxine Sodium 150 Mcg Tablet) 150 mcg PO DAILYBB [facility] Stop: 08/30/21 06:29 Last Admin: 08/04/21 05:13 Dose: 150 mcg Documented by: Losartan Potassium (Losartan Potassium 25 Mg Tab) 25 mg PO DAILY [facility] Stop: 08/30/21 08:59 Last Admin: 08/01/21 08:29 Dose: 25 mg Documented by: Miscellaneous (Carbohydrates For Hypoglycemia ) 15 - 30 gm PO UD PRN PRN Reason: Hypoglycemia Protocol Stop: 08/29/21 23:19 Mupirocin (Mupirocin 2% Oint 22 Gm Tube) 1 appln EXT BID PRN PRN Reason: NASAL DRYNESS Stop: 08/30/21 01:41 Ondansetron HCl (Ondansetron Inj 2 Mg/Ml 2 Ml Vial) 4 mg IV Q6H PRN PRN Reason: Nausea Stop: 08/29/21 23:19 Oxybutynin Chloride (Oxybutynin Chloride Xl 5 Mg Tabcr) 10 mg PO QPM [facility] Stop: 08/30/21 00:59 Last Admin: 08/01/21 20:01 Dose: 10 mg Documented by: Sodium Chloride (Sodium Chloride 0.65% Na Soln 45 Ml ([place])) 2 sprays NA DAILY PRN PRN Reason: NASAL DRYNESS Stop: 08/29/21 23:19 PG Care Time/CCT Total # of Minutes Spent Total Time Spent with Patient: Total time spent is greater than 50% in coordination of care (as documented) at patient's floor/unit and/or counseling patient: Coding Level of Care Code 24004 Subseq Hosp Care Lvl 3 Diagnoses Pneumonia due to 2019-nCoV U07.1; J12.82 Acute respiratory failure with hypoxia J96.01 Acute pulmonary edema J81.0 Hypomagnesemia E83.42 Hypokalemia E87.6 Diabetes mellitus type 2, uncontrolled E11.65 Morbid obesity with BMI of 40.0-44.9, adult E66.01; Z68.41 Sleep apnea G47.30 Hypothyroidism E03.9 Hyperlipidemia E78.5 DVT prophylaxis Z29.9 Hyponatremia E87.1
[2021-08-04] MEDS ORDERED: FUROSEMIDE 40 MG/4 ML VIAL IV ONE (12:30)
[2021-08-04] MEDS: ENOXAPARIN 80 MG/0.8 ML SYR SQ SCH ×2 (12:51→23:23)
[2021-08-04] MEDS: AZITHROMYCIN 250 MG TAB PO SCH (17:29)
[2021-08-04] MEDS: INSULIN GLARGINE 100 UNIT/ML VIAL SC SCH (21:25)
[2021-08-05] MEDS: ALBUTEROL 0.083% NEBU SOLN 3 ML VIAL NEB SCH ×2 (00:32→07:53)
[2021-08-05] MEDS: LEVOTHYROXINE SODIUM 150 MCG TABLET PO SCH (05:03)
[2021-08-05] MEDS ORDERED: ALBUTEROL 0.083% NEBU SOLN 3 ML VIAL NEB PRN (08:13)
[2021-08-05] MEDS: INSULIN ASPART 100 UNITS/ML 3 ML PEN SC SCH ×4 (08:57→21:15)
[2021-08-05] MEDS: INSULIN GLARGINE 100 UNIT/ML VIAL SC SCH ×2 (09:00→21:15)
[2021-08-05] MEDS: diphenhydrAMINE Capsule 25 MG CAP PO SCH (09:01)
[2021-08-05] MEDS: dexAMETHasone 10 MG in SYRINGE 0 ML IV SCH (09:01)
--- NOTE | 2021-08-05 11:14 | Hospitalist Progress Note ---
Date of Service August 05, 2021 Assessment & Plan (1) Pneumonia due to 2019-nCoV: Plan: continues with severe hypoxia leading to the need for CPAP, saturations drop if we try high flow CPAP with pressure 11 and FiO2 70% over two weeks since illness began again encouraged ongoing proning pulm toilet with flutter valve and incentive halie day #7 of dexamethasone 10mg IV (high dose) completed remdesivir on 08/03 completed zithromax on 08/04 no evidence of complicating PE or bacterial superinfection; dimer only modestly elevated, procal negative Lasix 20mg IV again today CRP <7.5 thus did not meet criteria for tocilizumab, was d/w pulmonology cont CPAP with proning & aggressive pulm toilet at risk of progressing to need for intubation and ventilation patient hoping to avoid this prognosis is guarded at best (2) Acute respiratory failure with hypoxia: Plan: due to severe COVID-19 pneumonia see above CPAP dependent the past 48 hours he is not in distress, he is eating, see if he can turn the corner (3) Acute pulmonary edema: Plan: has received daily diuresis since admission suspect we are approaching or we are at euvolemia give Lasix 20mg IV again today, follow response (4) Hypomagnesemia: Plan: repleted; resolved (5) Hypokalemia: Plan: give KCl with Lasix today repeat BMP tomorrow (6) Diabetes mellitus type 2, uncontrolled: Plan: HbA1C 7.8% in April high requirements of insulin at home (novolog 100 units TID w/ meals, etc) increased lantus 50 units BID on 08/03 leave current novolog correction and carb ratio monitor for hypoglycemia, hyperglycemia (7) Morbid obesity with BMI of 40.0-44.9, adult: Plan: BMI 42-43 (8) Sleep apnea: Plan: CPAP 11cm with blended O2 (9) Hypothyroidism: Plan: TSH 1.8 in January cont synthroid (10) Hyperlipidemia: Plan: not on meds for such (11) DVT prophylaxis: Plan: cont lovenox 0.5mg/kg BID given morbid obesity and high inflammatory markers discussed with today total time spent today 33 minutes (12) Hyponatremia: Plan: mild likely 2nd to diuretics bmp am Plan: extensively updated by phone on 08/02/21 Admission and Anticipated Discharge Date Admission Date: July 30, 2021 Subjective patient does not do well off of CPAP, currently on 11 and 70% FiO2 cannot go down to high flow he is not in distress, I discussed that if he gets worse, working hard to breathe despite CPAP then will need to talk intubation discussed briefly with Dr. Walker, he is out of the window to consider Tocilizumab will give Lasix again today he is eating okay, has keyes in place, making urine Review of Systems Review of Systems: All systems reviewed & are unremarkable except as noted in Subjective Physical Exam Constitutional: well developed, well nourished, + ill appearing, + morbidly ob herb and + frail appearing; no acute distress Neck: trachea midline and + thick neck Respiratory: + uses accessory muscles, + cough and + tachypneic; no respiratory distress and no labored breathing Auscultation: lungs clear to auscultation bilaterally; no crackles and no wheezes Cardiovascular: Rate/Rhythm: regular rate and regular rhythm Heart Sounds: normal S1 and normal S2; no murmur Extremities: normal capillary refill and + edema (trace in ankles) Gastrointestinal (Abdomen): normal bowel sounds, soft, nontender, no hepatosplenomegaly Musculoskeletal: no cyanosis or clubbing, extremities motor strength 5/5 Skin: no rashes, warm and dry Neurologic: normal touch/pain/proprioception, CN's II-XI intact bilaterally, moves all extremities and awake; no focal motor deficits Psychiatric: A+Ox3, euthymic affect Results & Data Results & Data ([facility]) Vital Signs (Past 12 Hours) Vital Signs Temp Pulse Pulse Pulse Resp BP Pulse Ox 08/05/21 07:54 77 26 H 91 08/05/21 07:34 37.0 C 71 24 116/65 94 08/05/21 04:30 75 24 90 08/05/21 02:58 37.1 C 74 24 98/66 L 92 08/05/21 00:34 73 26 H 90 08/05/21 00:32 75 25 H 91 Laboratory Results Laboratory Results - last 24 hr 08/04/21 08/04/21 08/04/21 12:00 16:42 19:54 POC Glucose 164 H 204 H 242 H 08/05/21 07:32 POC Glucose 89 Medications Administered Current Inpatient Medications Acetaminophen (Acetaminophen 325 Mg Tab) 650 mg PO Q4H PRN PRN Reason: Pain or Fever Stop: 08/29/21 23:19 Last Admin: 07/31/21 01:46 Dose: 650 mg Documented by: Albuterol (Albuterol 0.083% Nebu Soln 3 Ml Vial) 2.5 mg NEB Q6R PRN PRN Reason: Shortness Of Breath Or Wheezing Stop: 09/01/21 18:59 Azithromycin (Azithromycin 250 Mg Tab) 250 mg PO Q24H [facility] Stop: 08/07/21 17:59 Last Admin: 08/04/21 17:29 Dose: 250 mg Documented by: Dextrose (Dextrose 50% 50 Ml Syringe) 25 - 50 ml IV UD PRN; Protocol PRN Reason: Hypoglycemia Protocol Stop: 08/29/21 23:19 Diphenhydramine HCl (Diphenhydramine Capsule 25 Mg Cap) 25 mg PO DAILY [facility] Stop: 08/30/21 08:59 Last Admin: 08/05/21 09:01 Dose: 25 mg Documented by: Enoxaparin Sodium (Enoxaparin 80 Mg/0.8 Ml Syr) 70 mg SQ Q12H [facility] Stop: 08/31/21 11:59 Last Admin: 08/04/21 23:23 Dose: 70 mg Documented by: Fluticasone Propionate (Fluticasone Propionate Na Spr 16 Gm Btl) 1 sprays NA DAILY PRN PRN Reason: Nasal Congestion Stop: 08/30/21 08:59 Glucagon (Glucagon For Inj 1 Mg Vial) 1 mg SQ UD PRN; Protocol PRN Reason: Hypoglycemia Protocol Stop: 08/29/21 23:19 Glucose (Glucose 10 Tabs/Tube) 4 - 8 tabs PO UD PRN; Protocol PRN Reason: Hypoglycemia Protocol Stop: 08/29/21 23:19 Glucose (Glucose 40% Gel 15 Gm Tube) 15 - 30 gm PO UD PRN; Protocol PRN Reason: Hypoglycemia Protocol Stop: 08/29/21 23:19 Hydrochlorothiazide (Hydrochlorothiazide 25 Mg Tab) 25 mg PO BID [facility] Stop: 08/30/21 00:59 Last Admin: 07/31/21 19:35 Dose: 25 mg Documented by: Dexamethasone 10 mg/ Syringe 2.5 mls @ 1 mls/min IV DAILY [facility] Stop: 08/10/21 08:59 Last Admin: 08/05/21 09:01 Dose: 1 mls/min Documented by: Insulin Aspart (Insulin Aspart 100 Units/Ml 3 Ml Pen) 0 units SC ACHS [facility] Stop: 08/30/21 00:59 Last Admin: 08/05/21 08:57 Dose: 27 units Documented by: Insulin Glargine (Insulin Glargine 100 Unit/Ml Vial) 50 units SC BID [facility] Stop: 09/03/21 20:59 Last Admin: 08/05/21 09:00 Dose: 50 units Documented by: Levothyroxine Sodium (Levothyroxine Sodium 150 Mcg Tablet) 150 mcg PO DAILYBB [facility] Stop: 08/30/21 06:29 Last Admin: 08/05/21 05:03 Dose: 150 mcg Documented by: Losartan Potassium (Losartan Potassium 25 Mg Tab) 25 mg PO DAILY [facility] Stop: 08/30/21 08:59 Last Admin: 08/01/21 08:29 Dose: 25 mg Documented by: Miscellaneous (Carbohydrates For Hypoglycemia ) 15 - 30 gm PO UD PRN PRN Reason: Hypoglycemia Protocol Stop: 08/29/21 23:19 Mupirocin (Mupirocin 2% Oint 22 Gm Tube) 1 appln EXT BID PRN PRN Reason: NASAL DRYNESS Stop: 08/30/21 01:41 Ondansetron HCl (Ondansetron Inj 2 Mg/Ml 2 Ml Vial) 4 mg IV Q6H PRN PRN Reason: Nausea Stop: 08/29/21 23:19 Oxybutynin Chloride (Oxybutynin Chloride Xl 5 Mg Tabcr) 10 mg PO QPM [facility] Stop: 08/30/21 00:59 Last Admin: 08/01/21 20:01 Dose: 10 mg Documented by: Sodium Chloride (Sodium Chloride 0.65% Na Soln 45 Ml ([place])) 2 sprays NA DAILY PRN PRN Reason: NASAL DRYNESS Stop: 08/29/21 23:19 PG Care Time/CCT Total # of Minutes Spent Total Time Spent with Patient: Total time spent is greater than 50% in coordination of care (as documented) at patient's floor/unit and/or counseling patient: Coding Level of Care Code 50016 Subseq Hosp Care Lvl 3 Diagnoses Pneumonia due to 2019-nCoV U07.1; J12.82 Acute respiratory failure with hypoxia J96.01 Acute pulmonary edema J81.0 Hypomagnesemia E83.42 Hypokalemia E87.6 Diabetes mellitus type 2, uncontrolled E11.65 Morbid obesity with BMI of 40.0-44.9, adult E66.01; Z68.41 Sleep apnea G47.30 Hypothyroidism E03.9 Hyperlipidemia E78.5 DVT prophylaxis Z29.9 Hyponatremia E87.1
[2021-08-05] MEDS ORDERED: FUROSEMIDE 20 MG in SYRINGE 0 ML IV ONE (11:19)
[2021-08-05] MEDS ORDERED: POTASSIUM CHLORIDE CRTAB 20 MEQ TABCR PO ONE (11:26)
[2021-08-05] MEDS ORDERED: FUROSEMIDE 40 MG/4 ML VIAL IV ONE (11:30)
[2021-08-05] MEDS: ENOXAPARIN 80 MG/0.8 ML SYR SQ SCH ×2 (13:00→23:58)
[2021-08-05] MEDS: AZITHROMYCIN 250 MG TAB PO SCH (17:38)
[2021-08-05] MEDS: POTASSIUM CHLORIDE CRTAB 20 MEQ TABCR PO SCH (21:15)
[2021-08-06] MEDS: LEVOTHYROXINE SODIUM 150 MCG TABLET PO SCH (06:42)
[2021-08-06] MEDS: CARBOHYDRATES FOR HYPOGLYCEMIA PO PRN (06:50)
[2021-08-06 06:51] LABS: BUN Creatinine Ratio 17.2 (10-20); Creatinine Clr Calc Pharmacy 135.8 ml/min; Est GFR (African American) 107.9 ml/min; Est GFR (Non-African American) 93.1 ml/min; Magnesium 2.3 mg/dl (1.8-2.4); Potassium 3.6 mmol/L (3.5-5.1)
[2021-08-06] MEDS ORDERED: DEXTROSE 50% 50 ML SYRINGE IV ONE (07:18)
[2021-08-06] MEDS: dexAMETHasone 10 MG in SYRINGE 0 ML IV SCH (09:34)
[2021-08-06] MEDS: POTASSIUM CHLORIDE CRTAB 20 MEQ TABCR PO SCH ×2 (09:37→21:17)
[2021-08-06] MEDS: diphenhydrAMINE Capsule 25 MG CAP PO SCH (09:37)
[2021-08-06] MEDS: INSULIN GLARGINE 100 UNIT/ML VIAL SC SCH (09:38)
[2021-08-06] MEDS: INSULIN ASPART 100 UNITS/ML 3 ML PEN SC SCH ×4 (09:41→21:18)
[2021-08-06] MEDS: ENOXAPARIN 80 MG/0.8 ML SYR SQ SCH ×2 (13:36→23:50)
[2021-08-06] MEDS ORDERED: FUROSEMIDE 20 MG in SYRINGE 0 ML IV ONE (15:13)
[2021-08-06] MEDS ORDERED: FUROSEMIDE 40 MG/4 ML VIAL IV ONE ×2 (15:30→18:02)
[2021-08-06] MEDS: AZITHROMYCIN 250 MG TAB PO SCH (17:53)
[2021-08-06] MEDS ORDERED: INSULIN GLARGINE 100 UNIT/ML VIAL SC SCH (21:00)
--- NOTE | 2021-08-06 21:44 | Hospitalist Progress Note ---
Date of Service August 06, 2021 Assessment & Plan (1) Pneumonia due to 2019-nCoV: Plan: continues with severe hypoxia leading to the need for CPAP and high flow actually did okay with 40L and 100% FiO2 today, sitting upright give Lasix 20mg IV again today recommend he use CPAP and lay on his side or prone this evening day #8 of dexamethasone 10mg IV (high dose) completed remdesivir on 08/03 completed zithromax on 08/04 no evidence of complicating PE or bacterial superinfection CRP <7.5 thus did not meet criteria for tocilizumab, was d/w pulmonology cont CPAP with proning & aggressive pulm toilet at risk of progressing to need for intubation and ventilation patient hoping to avoid this prognosis is guarded at best (2) Acute respiratory failure with hypoxia: Plan: due to severe COVID-19 pneumonia see above actually tolerated High Flow all day today, did not need to go on CPAP recommend CPAP HS (3) Acute pulmonary edema: Plan: has received daily diuresis since admission give Lasix 20mg IV again today, follow response (4) Hypomagnesemia: Plan: repleted; resolved (5) Hypokalemia: Plan: give KCl with Lasix today repeat BMP tomorrow (6) Diabetes mellitus type 2, uncontrolled: Plan: HbA1C 7.8% in April high requirements of insulin at home (novolog 100 units TID w/ meals, etc) decrease lantus to 35 units BID due to some hypoglycemia this morning leave current novolog correction and carb ratio (7) Morbid obesity with BMI of 40.0-44.9, adult: Plan: BMI 42-43 (8) Sleep apnea: Plan: CPAP 11cm with blended O2 (9) Hypothyroidism: Plan: TSH 1.8 in January cont synthroid (10) Hyperlipidemia: Plan: not on meds for such (11) DVT prophylaxis: Plan: cont lovenox 0.5mg/kg BID given morbid obesity and high inflammatory markers (12) Hyponatremia: Plan: mild likely 2nd to diuretics bmp am Plan: extensively updated by phone on 08/02/21 Admission and Anticipated Discharge Date Admission Date: July 30, 2021 Subjective patient able to stay on high flow, 40L and 100% today sitting up most of the day, able to eat slowly, no nausea will give another dose of Lasix 20mg IV as he has negative output each day no fever, minimal cough, no chest pain he had a BM today again, encouraged him to lay on his side or prone, use the CPAP at night discussed with RN, he knows the plan Review of Systems Review of Systems: All systems reviewed & are unremarkable except as noted in Subjective Constitutional: + fatigue and + weakness; no fever Respiratory: + cough, + dyspnea and + dyspnea on exertion Cardiovascular: no chest pain and no edema Gastrointestinal: no abdominal pain, no nausea, no vomiting, no constipation and no diarrhea/loose stools Physical Exam Constitutional: well developed, well nourished, + ill appearing and + morbidly obese; no acute distress Neck: trachea midline and + thick neck Respiratory: + uses accessory muscles, + cough and + tachypneic; no respiratory distress and no labored breathing Auscultation: lungs clear to auscultation bilaterally; no crackles and no wheezes Cardiovascular: Rate/Rhythm: regular rate and regular rhythm Heart Sounds: normal S1 and normal S2; no murmur Extremities: normal capillary refill and + edema (trace in ankles) Gastrointestinal (Abdomen): normal bowel sounds, soft, nontender, no hepatosplenomegaly Musculoskeletal: no cyanosis or clubbing, extremities motor strength 5/5 Skin: no rashes, warm and dry Neurologic: normal touch/pain/proprioception, CN's II-XI intact bilaterally, moves all extremities and awake; no focal motor deficits Psychiatric: A+Ox3, euthymic affect Results & Data Results & Data ([facility]) Vital Signs (Past 12 Hours) Vital Signs Temp Pulse Resp BP BP Pulse Ox 08/06/21 20:25 37.1 C 92 H 22 117/74 90 08/06/21 19:40 95 H 25 H 88 L 08/06/21 15:55 36.7 C 86 24 105/72 87 L 08/06/21 14:41 88 20 90 08/06/21 11:03 37.0 C 80 34 H 139/52 L 88 L 08/06/21 11:01 85 19 89 L Laboratory Results Laboratory Results - last 24 hr 08/06/21 08/06/21 08/06/21 05:50 06:52 07:05 Sodium 137 Potassium 3.6 Chloride 101 Carbon Dioxide 32 Anion Gap 4.0 BUN 14 Creatinine 0.80 Est Cr Clr Drug Dosing 135.8 Est GFR ( Amer) 107.9 Est GFR (Non-Af Amer) 93.1 BUN/Creatinine Ratio 17.2 Glucose 52 L* POC Glucose 52 L* 51 L* Calcium 9.0 Magnesium 2.3 08/06/21 08/06/21 08/06/21 07:23 11:08 16:26 Sodium Potassium Chloride Carbon Dioxide Anion Gap BUN Creatinine Est Cr Clr Drug Dosing Est GFR ( Amer) Est GFR (Non-Af Amer) BUN/Creatinine Ratio Glucose POC Glucose 70 138 H 196 H Calcium Magnesium 08/06/21 20:21 Sodium Potassium Chloride Carbon Dioxide Anion Gap BUN Creatinine Est Cr Clr Drug Dosing Est GFR ( Amer) Est GFR (Non-Af Amer) BUN/Creatinine Ratio Glucose POC Glucose 228 H Calcium Magnesium Medications Administered Current Inpatient Medications Acetaminophen (Acetaminophen 325 Mg Tab) 650 mg PO Q4H PRN PRN Reason: Pain or Fever Stop: 08/29/21 23:19 Last Admin: 07/31/21 01:46 Dose: 650 mg Documented by: Albuterol (Albuterol 0.083% Nebu Soln 3 Ml Vial) 2.5 mg NEB Q6R PRN PRN Reason: Shortness Of Breath Or Wheezing Stop: 09/01/21 18:59 Azithromycin (Azithromycin 250 Mg Tab) 250 mg PO Q24H VIDYA Stop: 08/07/21 17:59 Last Admin: 08/06/21 17:53 Dose: 250 mg Documented by: Dextrose (Dextrose 50% 50 Ml Syringe) 25 - 50 ml IV UD PRN; Protocol PRN Reason: Hypoglycemia Protocol Stop: 08/29/21 23:19 Diphenhydramine HCl (Diphenhydramine Capsule 25 Mg Cap) 25 mg PO DAILY VIDYA Stop: 08/30/21 08:59 Last Admin: 08/06/21 09:37 Dose: 25 mg Documented by: Enoxaparin Sodium (Enoxaparin 80 Mg/0.8 Ml Syr) 70 mg SQ Q12H VIDYA Stop: 08/31/21 11:59 Last Admin: 08/06/21 13:36 Dose: 70 mg Documented by: Fluticasone Propionate (Fluticasone Propionate Na Spr 16 Gm Btl) 1 sprays NA DAILY PRN PRN Reason: Nasal Congestion Stop: 08/30/21 08:59 Glucagon (Glucagon For Inj 1 Mg Vial) 1 mg SQ UD PRN; Protocol PRN Reason: Hypoglycemia Protocol Stop: 08/29/21 23:19 Glucose (Glucose 10 Tabs/Tube) 4 - 8 tabs PO UD PRN; Protocol PRN Reason: Hypoglycemia Protocol Stop: 08/29/21 23:19 Glucose (Glucose 40% Gel 15 Gm Tube) 15 - 30 gm PO UD PRN; Protocol PRN Reason: Hypoglycemia Protocol Stop: 08/29/21 23:19 Hydrochlorothiazide (Hydrochlorothiazide 25 Mg Tab) 25 mg PO BID VIDYA Stop: 08/30/21 00:59 Last Admin: 07/31/21 19:35 Dose: 25 mg Documented by: Dexamethasone 10 mg/ Syringe 2.5 mls @ 1 mls/min IV DAILY VIDYA Stop: 08/10/21 08:59 Last Admin: 08/06/21 09:34 Dose: 1 mls/min Documented by: Insulin Aspart (Insulin Aspart 100 Units/Ml 3 Ml Pen) 0 units SC ACHS VIDYA Stop: 08/30/21 00:59 Last Admin: 08/06/21 21:18 Dose: 12 units Documented by: Insulin Glargine (Insulin Glargine 100 Unit/Ml Vial) 35 units SC BID VIDYA Stop: 09/05/21 20:59 Last Admin: 08/06/21 21:17 Dose: 35 units Documented by: Levothyroxine Sodium (Levothyroxine Sodium 150 Mcg Tablet) 150 mcg PO DAILYBB VIDYA Stop: 08/30/21 06:29 Last Admin: 08/06/21 06:42 Dose: 150 mcg Documented by: Losartan Potassium (Losartan Potassium 25 Mg Tab) 25 mg PO DAILY VIDYA Stop: 08/30/21 08:59 Last Admin: 08/01/21 08:29 Dose: 25 mg Documented by: Miscellaneous (Carbohydrates For Hypoglycemia ) 15 - 30 gm PO UD PRN PRN Reason: Hypoglycemia Protocol Stop: 08/29/21 23:19 Last Admin: 08/06/21 06:50 Dose: 15 gm Documented by: Mupirocin (Mupirocin 2% Oint 22 Gm Tube) 1 appln EXT BID PRN PRN Reason: NASAL DRYNESS Stop: 08/30/21 01:41 Ondansetron HCl (Ondansetron Inj 2 Mg/Ml 2 Ml Vial) 4 mg IV Q6H PRN PRN Reason: Nausea Stop: 08/29/21 23:19 Oxybutynin Chloride (Oxybutynin Chloride Xl 5 Mg Tabcr) 10 mg PO QPM VIDYA Stop: 08/30/21 00:59 Last Admin: 08/01/21 20:01 Dose: 10 mg Documented by: Potassium Chloride (Potassium Chloride Crtab 20 Meq Tabcr) 20 meq PO BID VIDYA Stop: 09/04/21 20:59 Last Admin: 08/06/21 21:17 Dose: 20 meq Documented by: Sodium Chloride (Sodium Chloride 0.65% Na Soln 45 Ml ([place])) 2 sprays NA DAILY PRN PRN Reason: NASAL DRYNESS Stop: 08/29/21 23:19 PG Care Time/CCT Total # of Minutes Spent Total Time Spent with Patient: Total time spent is greater than 50% in coordination of care (as documented) at patient's floor/unit and/or counseling patient: Coding Level of Care Code 82638 Subseq Hosp Care Lvl 3 Diagnoses Pneumonia due to 2019-nCoV U07.1; J12.82 Acute respiratory failure with hypoxia J96.01 Acute pulmonary edema J81.0 Hypomagnesemia E83.42 Hypokalemia E87.6 Diabetes mellitus type 2, uncontrolled E11.65 Morbid obesity with BMI of 40.0-44.9, adult E66.01; Z68.41 Sleep apnea G47.30 Hypothyroidism E03.9 Hyperlipidemia E78.5 DVT prophylaxis Z29.9 Hyponatremia E87.1
[2021-08-07] MEDS: LEVOTHYROXINE SODIUM 150 MCG TABLET PO SCH (06:37)
[2021-08-07] MEDS: CARBOHYDRATES FOR HYPOGLYCEMIA PO PRN (06:49)
[2021-08-07] MEDS: INSULIN ASPART 100 UNITS/ML 3 ML PEN SC SCH ×4 (08:58→20:28)
[2021-08-07] MEDS: dexAMETHasone 10 MG in SYRINGE 0 ML IV SCH (09:48)
[2021-08-07] MEDS: diphenhydrAMINE Capsule 25 MG CAP PO SCH (09:48)
[2021-08-07] MEDS: POTASSIUM CHLORIDE CRTAB 20 MEQ TABCR PO SCH ×2 (09:49→20:26)
[2021-08-07] MEDS ORDERED: FUROSEMIDE 20 MG in SYRINGE 0 ML IV ONE ×2 (09:49→15:50)
[2021-08-07] MEDS: INSULIN GLARGINE 100 UNIT/ML VIAL SC SCH (09:49)
[2021-08-07] MEDS ORDERED: FUROSEMIDE 40 MG/4 ML VIAL IV ONE ×3 (10:00→16:00)
--- NOTE | 2021-08-07 10:04 | Hospitalist Progress Note ---
Date of Service August 07, 2021 Assessment & Plan (1) Pneumonia due to 2019-nCoV: Plan: continues with severe hypoxia leading to the need for CPAP and high flow actually did okay with 40L and 100% FiO2 yesterday, going to try again today give Lasix 20mg IV again today on CPAP at night, pressure 14 and FiO2 80% day #9 of dexamethasone 10mg IV (high dose) completed remdesivir on 08/03 completed zithromax on 08/04 no evidence of complicating PE or bacterial superinfection CRP <7.5 thus did not meet criteria for tocilizumab, was d/w pulmonology cont CPAP with proning & aggressive pulm toilet at risk of progressing to need for intubation and ventilation patient hoping to avoid this prognosis is still guarded (2) Acute respiratory failure with hypoxia: Plan: due to severe COVID-19 pneumonia see above continue high flow during the day, CPAP HS (3) Acute pulmonary edema: Plan: continue Lasix 20mg IV daily to keep lungs dry (4) Hypomagnesemia: Plan: repleted; resolved (5) Hypokalemia: Plan: give KCl with Lasix today repeat BMP today (6) Diabetes mellitus type 2, uncontrolled: Plan: HbA1C 7.8% in April high requirements of insulin at home (novolog 100 units TID w/ meals, etc) had decreased Lantus to 35 BID but still had hypoglycemia this morning will decrease evening Lantus to 25 units monitor closely (7) Morbid obesity with BMI of 40.0-44.9, adult: Plan: BMI 42-43 (8) Sleep apnea: Plan: CPAP 11cm with blended O2 (9) Hypothyroidism: Plan: TSH 1.8 in January cont synthroid (10) Hyperlipidemia: Plan: not on meds for such (11) DVT prophylaxis: Plan: cont lovenox 0.5mg/kg BID given morbid obesity and high inflammatory markers (12) Hyponatremia: Plan: mild likely 2nd to diuretics bmp am Plan: extensively updated by phone on 08/02/21 Admission and Anticipated Discharge Date Admission Date: July 30, 2021 Subjective patient slept with CPAP on, still with CPAP at 14 and 80% FiO2, saturations 97%, no distress eating okay, drinking plenty, eating fruit and cereal this morning moved bowels yesterday going to try to be on Vapotherm again today, yesterday was on 40L and 100% all day long discussed that he is stable, not necessarily getting worse but not getting better will check BMP, Mag, CBC this morning, give Lasix 20mg IV since he is responding each day will check on him this afternoon hypoglycemic again this morning despite Lantus 35 units last night, will reduce evening dose to 25 units and he will get 35 units this morning Review of Systems Review of Systems: All systems reviewed & are unremarkable except as noted in Subjective Constitutional: + weakness; no fever Respiratory: + cough, + dyspnea and + dyspnea on exertion Cardiovascular: no chest pain Physical Exam Constitutional: well developed, well nourished, + ill appearing and + morbidly obese; no acute distress Neck: trachea midline and + thick neck Respiratory: + uses accessory muscles, + cough and + tachypneic; no respiratory distress and no labored breathing Auscultation: lungs clear to auscultation bilaterally; no crackles and no wheezes Cardiovascular: Rate/Rhythm: regular rate and regular rhythm Heart Sounds: normal S1 and normal S2; no murmur Extremities: normal capillary refill and + edema (trace in ankles) Gastrointestinal (Abdomen): normal bowel sounds, soft, nontender, no hepatosplenomegaly Musculoskeletal: no cyanosis or clubbing, extremities motor strength 5/5 Skin: no rashes, warm and dry Neurologic: normal touch/pain/proprioception, CN's II-XI intact bilaterally, moves all extremities and awake; no focal motor deficits Psychiatric: A+Ox3, euthymic affect Results & Data Results & Data ([facility]) Vital Signs (Past 12 Hours) Vital Signs Temp Pulse Pulse Resp BP BP Pulse Ox 08/07/21 08:43 84 27 H 93 08/07/21 07:52 37.2 C 81 24 119/69 94 08/07/21 04:04 36.5 C 92 H 20 109/63 91 08/07/21 02:51 68 23 90 08/06/21 23:47 76 26 H 93 08/06/21 22:53 36.5 C 82 24 135/87 89 L Laboratory Results Laboratory Results - last 24 hr 08/06/21 08/06/21 08/06/21 11:08 16:26 20:21 POC Glucose 138 H 196 H 228 H 08/07/21 08/07/21 08/07/21 06:45 07:11 07:15 POC Glucose 65 L* 53 L* 50 L* 08/07/21 08/07/21 08/07/21 07:54 08:10 08:36 POC Glucose 67 L* 58 L* 74 Medications Administered Current Inpatient Medications Acetaminophen (Acetaminophen 325 Mg Tab) 650 mg PO Q4H PRN PRN Reason: Pain or Fever Stop: 08/29/21 23:19 Last Admin: 07/31/21 01:46 Dose: 650 mg Documented by: Albuterol (Albuterol 0.083% Nebu Soln 3 Ml Vial) 2.5 mg NEB Q6R PRN PRN Reason: Shortness Of Breath Or Wheezing Stop: 09/01/21 18:59 Azithromycin (Azithromycin 250 Mg Tab) 250 mg PO Q24H VIDYA Stop: 08/07/21 17:59 Last Admin: 08/06/21 17:53 Dose: 250 mg Documented by: Dextrose (Dextrose 50% 50 Ml Syringe) 25 - 50 ml IV UD PRN; Protocol PRN Reason: Hypoglycemia Protocol Stop: 08/29/21 23:19 Diphenhydramine HCl (Diphenhydramine Capsule 25 Mg Cap) 25 mg PO DAILY VIDYA Stop: 08/30/21 08:59 Last Admin: 08/07/21 09:48 Dose: 25 mg Documented by: Enoxaparin Sodium (Enoxaparin 80 Mg/0.8 Ml Syr) 70 mg SQ Q12H VIDYA Stop: 08/31/21 11:59 Last Admin: 08/06/21 23:50 Dose: 70 mg Documented by: Fluticasone Propionate (Fluticasone Propionate Na Spr 16 Gm Btl) 1 sprays NA DAILY PRN PRN Reason: Nasal Congestion Stop: 08/30/21 08:59 Furosemide (Furosemide 40 Mg/4 Ml Vial) 20 mg IV ONE ONE Stop: 08/07/21 10:01 Glucagon (Glucagon For Inj 1 Mg Vial) 1 mg SQ UD PRN; Protocol PRN Reason: Hypoglycemia Protocol Stop: 08/29/21 23:19 Glucose (Glucose 10 Tabs/Tube) 4 - 8 tabs PO UD PRN; Protocol PRN Reason: Hypoglycemia Protocol Stop: 08/29/21 23:19 Glucose (Glucose 40% Gel 15 Gm Tube) 15 - 30 gm PO UD PRN; Protocol PRN Reason: Hypoglycemia Protocol Stop: 08/29/21 23:19 Hydrochlorothiazide (Hydrochlorothiazide 25 Mg Tab) 25 mg PO BID VIDYA Stop: 08/30/21 00:59 Last Admin: 07/31/21 19:35 Dose: 25 mg Documented by: Dexamethasone 10 mg/ Syringe 2.5 mls @ 1 mls/min IV DAILY VIDYA Stop: 08/10/21 08:59 Last Admin: 08/07/21 09:48 Dose: 1 mls/min Documented by: Furosemide 20 mg/ Syringe 2 mls @ 4 mls/min IV ONE ONE Stop: 08/07/21 09:50 Insulin Aspart (Insulin Aspart 100 Units/Ml 3 Ml Pen) 0 units SC ACHS [facility] Stop: 08/30/21 00:59 Last Admin: 08/07/21 08:58 Dose: Not Given Documented by: Insulin Glargine (Insulin Glargine 100 Unit/Ml Vial) 35 units SC QAM VIDYA Stop: 09/06/21 08:59 Last Admin: 08/07/21 09:49 Dose: 35 units Documented by: Insulin Glargine (Insulin Glargine 100 Unit/Ml Vial) 25 units SC QPM VIDYA Stop: 09/06/21 20:59 Levothyroxine Sodium (Levothyroxine Sodium 150 Mcg Tablet) 150 mcg PO DAILYBB [facility] Stop: 08/30/21 06:29 Last Admin: 08/07/21 06:37 Dose: 150 mcg Documented by: Losartan Potassium (Losartan Potassium 25 Mg Tab) 25 mg PO DAILY VIDYA Stop: 08/30/21 08:59 Last Admin: 08/01/21 08:29 Dose: 25 mg Documented by: Miscellaneous (Carbohydrates For Hypoglycemia ) 15 - 30 gm PO UD PRN PRN Reason: Hypoglycemia Protocol Stop: 08/29/21 23:19 Last Admin: 08/07/21 06:49 Dose: 15 gm Documented by: Mupirocin (Mupirocin 2% Oint 22 Gm Tube) 1 appln EXT BID PRN PRN Reason: NASAL DRYNESS Stop: 08/30/21 01:41 Ondansetron HCl (Ondansetron Inj 2 Mg/Ml 2 Ml Vial) 4 mg IV Q6H PRN PRN Reason: Nausea Stop: 08/29/21 23:19 Oxybutynin Chloride (Oxybutynin Chloride Xl 5 Mg Tabcr) 10 mg PO QPM VIDYA Stop: 08/30/21 00:59 Last Admin: 08/01/21 20:01 Dose: 10 mg Documented by: Potassium Chloride (Potassium Chloride Crtab 20 Meq Tabcr) 20 meq PO BID VIDYA Stop: 09/04/21 20:59 Last Admin: 08/07/21 09:49 Dose: 20 meq Documented by: Sodium Chloride (Sodium Chloride 0.65% Na Soln 45 Ml ([place])) 2 sprays NA DAILY PRN PRN Reason: NASAL DRYNESS Stop: 08/29/21 23:19 PG Care Time/CCT Total # of Minutes Spent Total Time Spent with Patient: Total time spent is greater than 50% in coordination of care (as documented) at patient's floor/unit and/or counseling patient: Coding Level of Care Code 53711 Subseq Hosp Care Lvl 3 Diagnoses Pneumonia due to 2019-nCoV U07.1; J12.82 Acute respiratory failure with hypoxia J96.01 Acute pulmonary edema J81.0 Hypomagnesemia E83.42 Hypokalemia E87.6 Diabetes mellitus type 2, uncontrolled E11.65 Morbid obesity with BMI of 40.0-44.9, adult E66.01; Z68.41 Sleep apnea G47.30 Hypothyroidism E03.9 Hyperlipidemia E78.5 DVT prophylaxis Z29.9 Hyponatremia E87.1
[2021-08-07 10:53] LABS: Hematocrit (blood only) 48.4 % (42-52); Mean Corpuscular Hemoglobin 30.1 pg (25-34); Mean Corpuscular Hgb Conc 33.1 g/dL (32-36); Mean Corpuscular Volume 91.1 fL (80-100); Mean Platelet Volume 8.9 fL (7.4-10.4); Platelet Count 401 K/uL (130-400); RDW Coefficient of Variation 14.4 % (11.5-14.5); RDW Standard Deviation 48.3 fL (36.4-46.3); Red Blood Count 5.31 M/uL (4.7-6.1); White Blood Count 9.27 K/uL (4.8-10.8)
[2021-08-07 11:24] LABS: BUN Creatinine Ratio 13.8 (10-20); Calcium 9.6 mg/dl (8.5-10.1); Creatinine Clr Calc Pharmacy 95.6 ml/min; Est GFR (African American) 77.2 ml/min; Est GFR (Non-African American) 66.6 ml/min; Magnesium 2.1 mg/dl (1.8-2.4); Potassium 3.9 mmol/L (3.5-5.1)
[2021-08-07] MEDS: ENOXAPARIN 80 MG/0.8 ML SYR SQ SCH (13:13)
[2021-08-07] MEDS ORDERED: INSULIN GLARGINE 100 UNIT/ML VIAL SC SCH (21:00)
[2021-08-08] MEDS: ENOXAPARIN 80 MG/0.8 ML SYR SQ SCH ×2 (01:00→13:49)
[2021-08-08] MEDS: LEVOTHYROXINE SODIUM 150 MCG TABLET PO SCH (06:47)
[2021-08-08 07:53] LABS: Calcium 9.1 mg/dl (8.5-10.1); Creatinine Clr Calc Pharmacy 134.5 ml/min; Est GFR (African American) 106.8 ml/min; Est GFR (Non-African American) 92.1 ml/min; Magnesium 2.1 mg/dl (1.8-2.4); Potassium 3.5 mmol/L (3.5-5.1)
[2021-08-08] MEDS: dexAMETHasone 10 MG in SYRINGE 0 ML IV SCH (08:31)
[2021-08-08] MEDS: FUROSEMIDE 20 MG in SYRINGE 0 ML IV SCH (08:32)
[2021-08-08] MEDS: INSULIN ASPART 100 UNITS/ML 3 ML PEN SC SCH ×4 (09:41→20:45)
[2021-08-08] MEDS: POTASSIUM CHLORIDE CRTAB 20 MEQ TABCR PO SCH ×2 (09:44→20:38)
[2021-08-08] MEDS: diphenhydrAMINE Capsule 25 MG CAP PO SCH (09:44)
[2021-08-08] MEDS: INSULIN GLARGINE 100 UNIT/ML VIAL SC SCH (09:47)
[2021-08-08] MEDS ORDERED: PHARMACY GLYCEMIC MGMT CONSULT PRN (10:55)
--- NOTE | 2021-08-08 12:22 | Pharmacy Report ---
Pharmacy Glycemic Short Note 2 - Date of Service August 08, 2021 - Glycemic Short BSG Results (Last 24 hours): 08/07/21 08/07/21 08/07/21 16:56 19:57 19:59 Glucose POC Glucose 245 H 301 H* 308 H* 08/08/21 08/08/21 08/08/21 00:20 06:20 07:45 Glucose 59 L POC Glucose 157 H 60 L* 08/08/21 08/08/21 08/08/21 07:46 08:02 08:02 Glucose POC Glucose 62 L* 64 L* 69 L* 08/08/21 08/08/21 08/08/21 08:03 08:29 11:40 Glucose POC Glucose 65 L* 98 172 H OUTPATIENT ANTIDIABETIC REGIMEN: * Lantus 28 units AM + 33 units PM * Novolog 40-100 units TID w/ meals per scale * Semaglutide 0.5mg SQ weekly * Metformin 1000mg AM + 1500mg PM * A1c = 7.8% 05/02/21 ASSESSMENT: * Highly insulin resistant type 2 diabetic admitted for COVID19 viral pna * Outpt insulin regimen provides > 300 units / day * High dose IV dexamethasone continues, however tomorrow will be day 10 of . * Current BSG pattern suggests excess basal + / - HS correctional insulin. Will reduce basal insulin and adjust Novolog scale given at HS * Post-prandial hyperglycemia observed despite aggressive Novolog regimen, will provide additional prandial units and add a low dose of NPH tomorrow given it will be the final day of therapy, plus given his fasting AM hypoglycemic episodes NPH could carry a risk if dosed at usual level PLAN FOR INPATIENT GLYCEMIC CONTROL: * Hold outpatient diabetes medications * Basal insulin * Lantus 35 units SQ QAM * NPH 15 units Q AM w/ IV dexamethasone * Bolus insulin * NovoLog per scale ACHS or Q6hrs while NPO * Goal Range: Low 120 mg/dL - High 160 mg/dL * Correction Factor: 5 mg/dL/unit * Nutritional / Prandial insulin per carb ratio of 1 unit per 1.5 grams CHO consumed PLAN FOR DISCHARGE: * to be determined
--- NOTE | 2021-08-08 14:08 | Hospitalist Progress Note ---
Date of Service August 08, 2021 Assessment & Plan (1) Pneumonia due to 2019-nCoV: Plan: continues with severe hypoxia leading to the need for CPAP and high flow doing better with high flow, can remain stable all day, on 40L and 80% this evening give Lasix 20mg IV again today on CPAP at night, pressure 14 and FiO2 80% day #9 of dexamethasone 10mg IV (high dose), complete 10 days tomorrow, consider going to 6mg for a few more days completed remdesivir on 08/03 completed zithromax on 08/04 no evidence of complicating PE or bacterial superinfection CRP <7.5 thus did not meet criteria for tocilizumab, was d/w pulmonology cont CPAP with proning & aggressive pulm toilet at risk of progressing to need for intubation and ventilation patient hoping to avoid this prognosis is still guarded (2) Acute respiratory failure with hypoxia: Plan: due to severe COVID-19 pneumonia see above continue high flow during the day, CPAP HS (3) Acute pulmonary edema: Plan: continue Lasix 20mg IV daily to keep lungs dry (4) Hypomagnesemia: Plan: repleted; resolved (5) Hypokalemia: Plan: give KCl with Lasix repeat BMP in AM (6) Diabetes mellitus type 2, uncontrolled: Plan: HbA1C 7.8% in April high requirements of insulin at home (novolog 100 units TID w/ meals, etc) sugars very labile, on Lantus 35 AM and 25 PM, Novolog had more hypoglycemia this morning after hyperglycemia yesterday afternoon will consult pharmacy for glycemic management (7) Morbid obesity with BMI of 40.0-44.9, adult: Plan: BMI 42-43 (8) Sleep apnea: Plan: CPAP 11cm with blended O2 (9) Hypothyroidism: Plan: TSH 1.8 in January cont synthroid (10) Hyperlipidemia: Plan: not on meds for such (11) DVT prophylaxis: Plan: cont lovenox 0.5mg/kg BID given morbid obesity and high inflammatory markers (12) Hyponatremia: Plan: mild likely 2nd to diuretics bmp am Plan: extensively updated by phone on 08/07/21 Admission and Anticipated Discharge Date Admission Date: July 30, 2021 Subjective patient sitting at the edge of the bed with high flow, 40L and 100%, down to 80% later in the day today is the brightest he has looked, very comfortable and alert, texting family on his phone he agrees that he feels better today continue to eat a moderate amount, drinking fluids no fever/chills, no chest pain, no GI symptoms Cr and electrolytes stable encouraged him to continue working hard, he is making small improvements which is promising Review of Systems Review of Systems: All systems reviewed & are unremarkable except as noted in Subjective Respiratory: + cough, + dyspnea and + dyspnea on exertion Physical Exam Constitutional: well developed, well nourished, + ill appearing and + morbidly obese; no acute distress Neck: trachea midline and + thick neck Respiratory: + uses accessory muscles, + cough and + tachypneic; no respiratory distress and no labored breathing Auscultation: lungs clear to auscultation bilaterally; no crackles and no wheezes Cardiovascular: Rate/Rhythm: regular rate and regular rhythm Heart Sounds: normal S1 and normal S2; no murmur Extremities: normal capillary refill and + edema (trace in ankles) Gastrointestinal (Abdomen): normal bowel sounds, soft, nontender, no hepatosplenomegaly Musculoskeletal: no cyanosis or clubbing, extremities motor strength 5/5 Skin: no rashes, warm and dry Neurologic: normal touch/pain/proprioception, CN's II-XI intact bilaterally, moves all extremities and awake; no focal motor deficits Psychiatric: A+Ox3, euthymic affect Results & Data Results & Data ([facility]) Vital Signs (Past 12 Hours) Vital Signs Temp Pulse Pulse Pulse Resp BP Pulse Ox 08/08/21 11:56 84 18 92 08/08/21 11:25 37.1 C 85 20 96/61 L 91 08/08/21 09:07 91 H 20 90 08/08/21 07:51 36.6 C 78 24 107/50 L 90 08/08/21 07:30 87 26 H 89 L 08/08/21 05:57 77 08/08/21 03:54 37.3 C 75 26 H 101/57 L 88 L 08/08/21 03:13 69 28 H 93 Laboratory Results Laboratory Results - last 24 hr 08/07/21 08/07/21 08/07/21 16:56 19:57 19:59 Sodium Potassium Chloride Carbon Dioxide Anion Gap BUN Creatinine Est Cr Clr Drug Dosing Est GFR ( Amer) Est GFR (Non-Af Amer) BUN/Creatinine Ratio Glucose POC Glucose 245 H 301 H* 308 H* Calcium Magnesium 08/08/21 08/08/21 08/08/21 00:20 06:20 07:45 Sodium 134 L Potassium 3.5 Chloride 98 Carbon Dioxide 30 Anion Gap 7.0 BUN 18 Creatinine 0.82 D Est Cr Clr Drug Dosing 134.5 Est GFR ( Amer) 106.8 Est GFR (Non-Af Amer) 92.1 BUN/Creatinine Ratio 22.0 H Glucose 59 L POC Glucose 157 H 60 L* Calcium 9.1 Magnesium 2.1 08/08/21 08/08/21 08/08/21 07:46 08:02 08:02 Sodium Potassium Chloride Carbon Dioxide Anion Gap BUN Creatinine Est Cr Clr Drug Dosing Est GFR ( Amer) Est GFR (Non-Af Amer) BUN/Creatinine Ratio Glucose POC Glucose 62 L* 64 L* 69 L* Calcium Magnesium 08/08/21 08/08/21 08/08/21 08:03 08:29 11:40 Sodium Potassium Chloride Carbon Dioxide Anion Gap BUN Creatinine Est Cr Clr Drug Dosing Est GFR ( Amer) Est GFR (Non-Af Amer) BUN/Creatinine Ratio Glucose POC Glucose 65 L* 98 172 H Calcium Magnesium Medications Administered Current Inpatient Medications Acetaminophen (Acetaminophen 325 Mg Tab) 650 mg PO Q4H PRN PRN Reason: Pain or Fever Stop: 08/29/21 23:19 Last Admin: 07/31/21 01:46 Dose: 650 mg Documented by: Albuterol (Albuterol 0.083% Nebu Soln 3 Ml Vial) 2.5 mg NEB Q6R PRN PRN Reason: Shortness Of Breath Or Wheezing Stop: 09/01/21 18:59 Dextrose (Dextrose 50% 50 Ml Syringe) 25 - 50 ml IV UD PRN; Protocol PRN Reason: Hypoglycemia Protocol Stop: 08/29/21 23:19 Diphenhydramine HCl (Diphenhydramine Capsule 25 Mg Cap) 25 mg PO DAILY VIDYA Stop: 08/30/21 08:59 Last Admin: 08/08/21 09:44 Dose: 25 mg Documented by: Enoxaparin Sodium (Enoxaparin 80 Mg/0.8 Ml Syr) 70 mg SQ Q12H VIDYA Stop: 08/31/21 11:59 Last Admin: 08/08/21 13:49 Dose: 80 mg Documented by: Fluticasone Propionate (Fluticasone Propionate Na Spr 16 Gm Btl) 1 sprays NA DAILY PRN PRN Reason: Nasal Congestion Stop: 08/30/21 08:59 Glucagon (Glucagon For Inj 1 Mg Vial) 1 mg SQ UD PRN; Protocol PRN Reason: Hypoglycemia Protocol Stop: 08/29/21 23:19 Glucose (Glucose 10 Tabs/Tube) 4 - 8 tabs PO UD PRN; Protocol PRN Reason: Hypoglycemia Protocol Stop: 08/29/21 23:19 Glucose (Glucose 40% Gel 15 Gm Tube) 15 - 30 gm PO UD PRN; Protocol PRN Reason: Hypoglycemia Protocol Stop: 08/29/21 23:19 Hydrochlorothiazide (Hydrochlorothiazide 25 Mg Tab) 25 mg PO BID VIDYA Stop: 08/30/21 00:59 Last Admin: 07/31/21 19:35 Dose: 25 mg Documented by: Dexamethasone 10 mg/ Syringe 2.5 mls @ 1 mls/min IV DAILY VIDYA Stop: 08/10/21 08:59 Last Admin: 08/08/21 08:31 Dose: 1 mls/min Documented by: Furosemide 20 mg/ Syringe 2 mls @ 4 mls/min IV QAM VIDYA Stop: 09/07/21 08:59 Last Admin: 08/08/21 08:32 Dose: 4 mls/min Documented by: Insulin Aspart (Insulin Aspart 100 Units/Ml 3 Ml Pen) 0 units SC AC VIDYA Stop: 09/07/21 16:29 Insulin Aspart (Insulin Aspart 100 Units/Ml 3 Ml Pen) 0 units SC HS VIDYA Stop: 09/07/21 20:59 Insulin Human NPH (Novolin-N (Nph) Per Unit Charge) 15 units SQ TODAY@0900 ONE Stop: 08/09/21 09:01 Levothyroxine Sodium (Levothyroxine Sodium 150 Mcg Tablet) 150 mcg PO DAILYBB VIDYA Stop: 08/30/21 06:29 Last Admin: 08/08/21 06:47 Dose: 150 mcg Documented by: Losartan Potassium (Losartan Potassium 25 Mg Tab) 25 mg PO DAILY VIDYA Stop: 08/30/21 08:59 Last Admin: 08/01/21 08:29 Dose: 25 mg Documented by: Miscellaneous (Carbohydrates For Hypoglycemia ) 15 - 30 gm PO UD PRN PRN Reason: Hypoglycemia Protocol Stop: 08/29/21 23:19 Last Admin: 08/07/21 06:49 Dose: 15 gm Documented by: Miscellaneous Information (Pharmacy Glycemic Mgmt Consult) 1 ea N/A UD PRN PRN Reason: Consult Stop: 09/07/21 10:54 Mupirocin (Mupirocin 2% Oint 22 Gm Tube) 1 appln EXT BID PRN PRN Reason: NASAL DRYNESS Stop: 08/30/21 01:41 Ondansetron HCl (Ondansetron Inj 2 Mg/Ml 2 Ml Vial) 4 mg IV Q6H PRN PRN Reason: Nausea Stop: 08/29/21 23:19 Oxybutynin Chloride (Oxybutynin Chloride Xl 5 Mg Tabcr) 10 mg PO QPM VIDYA Stop: 08/30/21 00:59 Last Admin: 08/01/21 20:01 Dose: 10 mg Documented by: Potassium Chloride (Potassium Chloride Crtab 20 Meq Tabcr) 20 meq PO BID VIDYA Stop: 09/04/21 20:59 Last Admin: 08/08/21 09:44 Dose: 20 meq Documented by: Sodium Chloride (Sodium Chloride 0.65% Na Soln 45 Ml ([place])) 2 sprays NA DAILY PRN PRN Reason: NASAL DRYNESS Stop: 08/29/21 23:19 PG Care Time/CCT Total # of Minutes Spent Total Time Spent: 32 Total Time Spent with Patient: Total time spent is greater than 50% in coordination of care (as documented) at patient's floor/unit and/or counseling patient: Coding Level of Care Code 32961 Subseq Hosp Care Lvl 3 Diagnoses Pneumonia due to 2019-nCoV U07.1; J12.82 Acute respiratory failure with hypoxia J96.01 Acute pulmonary edema J81.0 Hypomagnesemia E83.42 Hypokalemia E87.6 Diabetes mellitus type 2, uncontrolled E11.65 Morbid obesity with BMI of 40.0-44.9, adult E66.01; Z68.41 Sleep apnea G47.30 Hypothyroidism E03.9 Hyperlipidemia E78.5 DVT prophylaxis Z29.9 Hyponatremia E87.1
[2021-08-09] MEDS: ENOXAPARIN 80 MG/0.8 ML SYR SQ SCH ×2 (01:19→13:56)
[2021-08-09] MEDS: LEVOTHYROXINE SODIUM 150 MCG TABLET PO SCH (06:32)
[2021-08-09 07:24] LABS: Calcium 9.1 mg/dl (8.5-10.1); Est GFR (African American) 105.7 ml/min; Est GFR (Non-African American) 91.2 ml/min; Magnesium 2.4 mg/dl (1.8-2.4); Phosphorus 3.6 mg/dl (2.5-4.9); Potassium 3.7 mmol/L (3.5-5.1)
[2021-08-09] MEDS ORDERED: NovoLIN-N (NPH) PER UNIT CHARGE SQ ONE ×2 (09:00→11:30)
[2021-08-09] MEDS: INSULIN ASPART 100 UNITS/ML 3 ML PEN SC SCH ×4 (09:08→21:00)
[2021-08-09] MEDS: FUROSEMIDE 20 MG in SYRINGE 0 ML IV SCH (09:40)
[2021-08-09] MEDS: dexAMETHasone 10 MG in SYRINGE 0 ML IV SCH (09:41)
[2021-08-09] MEDS: POTASSIUM CHLORIDE CRTAB 20 MEQ TABCR PO SCH ×2 (09:41→20:39)
[2021-08-09] MEDS: diphenhydrAMINE Capsule 25 MG CAP PO SCH (09:41)
--- NOTE | 2021-08-09 09:53 | Pharmacy Report ---
Pharmacy Glycemic Short Note 2 - Date of Service August 09, 2021 - Glycemic Short BSG Results (Last 24 hours): 08/08/21 08/08/21 08/08/21 11:40 16:20 20:05 Glucose POC Glucose 172 H 240 H 212 H 08/09/21 08/09/21 08/09/21 06:23 07:33 08:01 Glucose 75 POC Glucose 68 L* 120 H OUTPATIENT ANTIDIABETIC REGIMEN: * Lantus 28 units AM + 33 units PM * Novolog 40-100 units TID w/ meals per scale * Semaglutide 0.5mg SQ weekly * Metformin 1000mg AM + 1500mg PM * A1c = 7.8% 05/02/21 ASSESSMENT: 08/09 * Pt has received 132 units of insulin over the past 24hrs * 35 units of basal with Lantus * 97 units of bolus with NovoLog * AM fasting BSG remains low {again}. Only slightly hypo at 68mg/dl. Will slightly decrease Lantus from 35 units to 30 units. * Regimen is heavily weighted towards NovoLog- however, this is c/w outpatient dosing. AM fasting BSG trends low with minimal basal and post-prandial BSGs remain high despite aggressive CHO coverage. * Last day of dex today - possibly extending duration a few more days with dex 6mg IV. Will add a small dose of NPH to help cover steroid induced hyperglycemia and hopefully reduce the large doses of Novolog given (40+ units at meals). 08/08 * Highly insulin resistant type 2 diabetic admitted for COVID19 viral pna * Outpt insulin regimen provides > 300 units / day * High dose IV dexamethasone continues, however tomorrow will be day 10 of . * Current BSG pattern suggests excess basal + / - HS correctional insulin. Will reduce basal insulin and adjust Novolog scale given at HS * Post-prandial hyperglycemia observed despite aggressive Novolog regimen, will provide additional prandial units and add a low dose of NPH tomorrow given it will be the final day of therapy, plus given his fasting AM hypoglycemic episodes NPH could carry a risk if dosed at usual level PLAN FOR INPATIENT GLYCEMIC CONTROL: * Hold outpatient diabetes medications * Basal insulin * Lantus 30 units SQ QAM * NPH 15 units Q AM w/ IV dexamethasone * Bolus insulin * NovoLog per scale ACHS or Q6hrs while NPO * Goal Range: Low 120 mg/dL - High 160 mg/dL * Correction Factor: 5 mg/dL/unit * Nutritional / Prandial insulin per carb ratio of 1 unit per 1.5 grams CHO consumed PLAN FOR DISCHARGE: * A1c is in goal range; no changes needed at dc * Insuli may need adjusted if patient is to dc on extended steroid taper.
--- NOTE | 2021-08-09 10:38 | Hospitalist Progress Note ---
Date of Service August 09, 2021 Assessment & Plan (1) Pneumonia due to 2019-nCoV: Plan: continues with severe hypoxia leading to the need for CPAP and high flow doing better with high flow, can remain stable all day, on 40L and 95% this morning give Lasix 20mg IV again today, might give another dose this afternoon on CPAP at night, pressure 14 and FiO2 80% day #10 of dexamethasone 10mg IV (high dose), complete 10 days today, will decrease to 6mg IV daily tomorrow completed remdesivir on 08/03 completed zithromax on 08/04 no evidence of complicating PE or bacterial superinfection CRP <7.5 thus did not meet criteria for tocilizumab, was d/w pulmonology cont CPAP with proning & aggressive pulm toilet at risk of progressing to need for intubation and ventilation patient hoping to avoid this prognosis is still guarded (2) Acute respiratory failure with hypoxia: Plan: due to severe COVID-19 pneumonia see above continue high flow during the day, CPAP HS (3) Acute pulmonary edema: Plan: continue Lasix 20mg IV daily to keep lungs dry give extra dose this afternoon (4) Hypomagnesemia: Plan: repleted; resolved (5) Hypokalemia: Plan: give KCl with Lasix repeat BMP in AM (6) Diabetes mellitus type 2, uncontrolled: Plan: HbA1C 7.8% in April high requirements of insulin at home (novolog 100 units TID w/ meals, etc) sugars very labile, on Lantus 35 AM and 25 PM, Novolog had more hypoglycemia this morning after hyperglycemia yesterday afternoon will consult pharmacy for glycemic management let them know that we will decrease dexamethasone to 6mg IV tomorrow (7) Morbid obesity with BMI of 40.0-44.9, adult: Plan: BMI 42-43 (8) Sleep apnea: Plan: CPAP 11cm with blended O2 (9) Hypothyroidism: Plan: TSH 1.8 in January cont synthroid (10) Hyperlipidemia: Plan: not on meds for such (11) DVT prophylaxis: Plan: cont lovenox 0.5mg/kg BID given morbid obesity and high inflammatory markers (12) Hyponatremia: Plan: mild likely 2nd to diuretics bmp am Plan: extensively updated by phone on 08/07/21 Admission and Anticipated Discharge Date Admission Date: July 30, 2021 Subjective patient continues to look better even though he is still requiring 40L and 95% FiO2 talking in full sentences, eating and drinking he says his cough is more productive, encouraged him to utilize flutter valve and incentive spirometer he is laying prone intermittently reviewed labs, Cr is stable, K is stable Review of Systems Review of Systems: All systems reviewed & are unremarkable except as noted in Subjective Constitutional: + fatigue (did not sleep well, having insomnia) and + weakness ; no fever Respiratory: + cough, + dyspnea and + sputum production Cardiovascular: no chest pain Physical Exam Constitutional: well developed, well nourished, + ill appearing and + morbidly obese; no acute distress Neck: trachea midline and + thick neck Respiratory: + cough and + tachypneic; no respiratory distress and no labored breathing Auscultation: lungs clear to auscultation bilaterally; no crackles and no wheezes Cardiovascular: Rate/Rhythm: regular rate and regular rhythm Heart Sounds: normal S1 and normal S2; no murmur Extremities: normal capillary refill and + edema (trace in ankles) Gastrointestinal (Abdomen): normal bowel sounds, soft, nontender, no hepatosplenomegaly Musculoskeletal: no cyanosis or clubbing, extremities motor strength 5/5 Skin: no rashes, warm and dry Neurologic: normal touch/pain/proprioception, CN's II-XI intact bilaterally, moves all extremities and awake; no focal motor deficits Psychiatric: A+Ox3, euthymic affect Results & Data Results & Data ([facility]) Vital Signs (Past 12 Hours) Vital Signs Temp Pulse Pulse Pulse Resp BP BP 08/09/21 09:00 68 08/09/21 07:31 36.6 C 70 22 114/65 08/09/21 07:30 83 20 08/09/21 03:29 36.7 C 71 20 123/71 08/09/21 02:08 58 L 20 08/09/21 00:00 85 08/08/21 23:12 36.8 C 89 19 142/97 H 08/08/21 22:48 84 16 Pulse Ox 08/09/21 09:00 08/09/21 07:31 93 08/09/21 07:30 89 L 08/09/21 03:29 88 L 08/09/21 02:08 90 08/09/21 00:00 08/08/21 23:12 94 08/08/21 22:48 92 Laboratory Results Laboratory Results - last 24 hr 08/08/21 08/08/21 08/08/21 11:40 16:20 20:05 Sodium Potassium Chloride Carbon Dioxide Anion Gap BUN Creatinine Est Cr Clr Drug Dosing Est GFR ( Amer) Est GFR (Non-Af Amer) BUN/Creatinine Ratio Glucose POC Glucose 172 H 240 H 212 H Calcium Phosphorus Magnesium 08/09/21 08/09/21 08/09/21 06:23 07:33 08:01 Sodium 136 Potassium 3.7 Chloride 99 Carbon Dioxide 31 Anion Gap 6.0 BUN 19 H Creatinine 0.84 Est Cr Clr Drug Dosing 132.0 Est GFR ( Amer) 105.7 Est GFR (Non-Af Amer) 91.2 BUN/Creatinine Ratio 23.0 H Glucose 75 POC Glucose 68 L* 120 H Calcium 9.1 Phosphorus 3.6 Magnesium 2.4 Medications Administered Current Inpatient Medications Acetaminophen (Acetaminophen 325 Mg Tab) 650 mg PO Q4H PRN PRN Reason: Pain or Fever Stop: 08/29/21 23:19 Last Admin: 07/31/21 01:46 Dose: 650 mg Documented by: Albuterol (Albuterol 0.083% Nebu Soln 3 Ml Vial) 2.5 mg NEB Q6R PRN PRN Reason: Shortness Of Breath Or Wheezing Stop: 09/01/21 18:59 Dextrose (Dextrose 50% 50 Ml Syringe) 25 - 50 ml IV UD PRN; Protocol PRN Reason: Hypoglycemia Protocol Stop: 08/29/21 23:19 Diphenhydramine HCl (Diphenhydramine Capsule 25 Mg Cap) 25 mg PO DAILY VIDYA Stop: 08/30/21 08:59 Last Admin: 08/09/21 09:41 Dose: 25 mg Documented by: Enoxaparin Sodium (Enoxaparin 80 Mg/0.8 Ml Syr) 70 mg SQ Q12H VIDYA Stop: 08/31/21 11:59 Last Admin: 08/09/21 01:19 Dose: 70 mg Documented by: Fluticasone Propionate (Fluticasone Propionate Na Spr 16 Gm Btl) 1 sprays NA DAILY PRN PRN Reason: Nasal Congestion Stop: 08/30/21 08:59 Glucagon (Glucagon For Inj 1 Mg Vial) 1 mg SQ UD PRN; Protocol PRN Reason: Hypoglycemia Protocol Stop: 08/29/21 23:19 Glucose (Glucose 10 Tabs/Tube) 4 - 8 tabs PO UD PRN; Protocol PRN Reason: Hypoglycemia Protocol Stop: 08/29/21 23:19 Glucose (Glucose 40% Gel 15 Gm Tube) 15 - 30 gm PO UD PRN; Protocol PRN Reason: Hypoglycemia Protocol Stop: 08/29/21 23:19 Hydrochlorothiazide (Hydrochlorothiazide 25 Mg Tab) 25 mg PO BID VIDYA Stop: 08/30/21 00:59 Last Admin: 07/31/21 19:35 Dose: 25 mg Documented by: Dexamethasone 10 mg/ Syringe 2.5 mls @ 1 mls/min IV DAILY VIDYA Stop: 08/10/21 08:59 Last Admin: 08/09/21 09:41 Dose: 1 mls/min Documented by: Furosemide 20 mg/ Syringe 2 mls @ 4 mls/min IV QAM VIDYA Stop: 09/07/21 08:59 Last Admin: 08/09/21 09:40 Dose: 4 mls/min Documented by: Insulin Aspart (Insulin Aspart 100 Units/Ml 3 Ml Pen) 0 units SC AC VIDYA Stop: 09/07/21 16:29 Last Admin: 08/09/21 09:08 Dose: 40 units Documented by: Insulin Aspart (Insulin Aspart 100 Units/Ml 3 Ml Pen) 0 units SC HS [facility] Stop: 09/07/21 20:59 Last Admin: 08/08/21 20:45 Dose: 3 units Documented by: Insulin Glargine (Insulin Glargine 100 Unit/Ml Vial) 30 units SC QAM VIDYA Stop: 09/08/21 11:29 Levothyroxine Sodium (Levothyroxine Sodium 150 Mcg Tablet) 150 mcg PO DAILYBB VIDYA Stop: 08/30/21 06:29 Last Admin: 08/09/21 06:32 Dose: 150 mcg Documented by: Losartan Potassium (Losartan Potassium 25 Mg Tab) 25 mg PO DAILY VIDYA Stop: 08/30/21 08:59 Last Admin: 08/01/21 08:29 Dose: 25 mg Documented by: Miscellaneous (Carbohydrates For Hypoglycemia ) 15 - 30 gm PO UD PRN PRN Reason: Hypoglycemia Protocol Stop: 08/29/21 23:19 Last Admin: 08/07/21 06:49 Dose: 15 gm Documented by: Miscellaneous Information (Pharmacy Glycemic Mgmt Consult) 1 ea N/A UD PRN PRN Reason: Consult Stop: 09/07/21 10:54 Mupirocin (Mupirocin 2% Oint 22 Gm Tube) 1 appln EXT BID PRN PRN Reason: NASAL DRYNESS Stop: 08/30/21 01:41 Ondansetron HCl (Ondansetron Inj 2 Mg/Ml 2 Ml Vial) 4 mg IV Q6H PRN PRN Reason: Nausea Stop: 08/29/21 23:19 Oxybutynin Chloride (Oxybutynin Chloride Xl 5 Mg Tabcr) 10 mg PO QPM VIDYA Stop: 08/30/21 00:59 Last Admin: 08/01/21 20:01 Dose: 10 mg Documented by: Potassium Chloride (Potassium Chloride Crtab 20 Meq Tabcr) 20 meq PO BID VIDYA Stop: 09/04/21 20:59 Last Admin: 08/09/21 09:41 Dose: 20 meq Documented by: Sodium Chloride (Sodium Chloride 0.65% Na Soln 45 Ml ([place])) 2 sprays NA DAILY PRN PRN Reason: NASAL DRYNESS Stop: 08/29/21 23:19 PG Care Time/CCT Total # of Minutes Spent Total Time Spent with Patient: Total time spent is greater than 50% in coordination of care (as documented) at patient's floor/unit and/or counseling patient: Coding Level of Care Code 86611 Subseq Hosp Care Lvl 2 Diagnoses Pneumonia due to 2019-nCoV U07.1; J12.82 Acute respiratory failure with hypoxia J96.01 Acute pulmonary edema J81.0 Hypomagnesemia E83.42 Hypokalemia E87.6 Diabetes mellitus type 2, uncontrolled E11.65 Morbid obesity with BMI of 40.0-44.9, adult E66.01; Z68.41 Sleep apnea G47.30 Hypothyroidism E03.9 Hyperlipidemia E78.5 DVT prophylaxis Z29.9 Hyponatremia E87.1
[2021-08-09] MEDS: INSULIN GLARGINE 100 UNIT/ML VIAL SC SCH (11:38)
[2021-08-09] MEDS ORDERED: FUROSEMIDE 20 MG in SYRINGE 0 ML IV ONE (15:00)
[2021-08-09] MEDS ORDERED: FUROSEMIDE 40 MG/4 ML VIAL IV ONE (15:00)
[2021-08-10] MEDS: ENOXAPARIN 80 MG/0.8 ML SYR SQ SCH ×2 (01:00→14:40)
[2021-08-10] MEDS: LEVOTHYROXINE SODIUM 150 MCG TABLET PO SCH (06:21)
[2021-08-10] MEDS ORDERED: INSULIN HUMAN NPH SC SCH (09:00)
[2021-08-10] MEDS: dexAMETHasone 6 MG in SYRINGE 0 ML IV SCH (09:16)
[2021-08-10] MEDS: FUROSEMIDE 20 MG in SYRINGE 0 ML IV SCH (09:16)
[2021-08-10] MEDS: POTASSIUM CHLORIDE CRTAB 20 MEQ TABCR PO SCH ×2 (09:19→21:08)
[2021-08-10] MEDS: diphenhydrAMINE Capsule 25 MG CAP PO SCH (09:19)
[2021-08-10] MEDS: INSULIN ASPART 100 UNITS/ML 3 ML PEN SC SCH ×4 (09:21→21:00)
[2021-08-10] MEDS: INSULIN GLARGINE 100 UNIT/ML VIAL SC SCH (09:23)
[2021-08-10 09:26] LABS: BUN Creatinine Ratio 22.2 (10-20); Calcium 9.3 mg/dl (8.5-10.1); Creatinine Clr Calc Pharmacy 116.3 ml/min; Est GFR (African American) 96.3 ml/min; Est GFR (Non-African American) 83.1 ml/min; Potassium 3.5 mmol/L (3.5-5.1)
--- NOTE | 2021-08-10 11:21 | Hospitalist Progress Note ---
Date of Service August 10, 2021 Assessment & Plan (1) Pneumonia due to 2019-nCoV: Plan: severe hypoxia leading to the need for CPAP and high flow doing a lot better the past 24 hours, especially today he was prone for 4 hours and his requirements dropped from 40L 95% to 30L 65%, he feels great continue Lasix 20mg IV qAM, good response and BUN/Cr stable, K stable remove keyes today as he is more mobile on CPAP at night, pressure 11, variable FiO2 completed ten days of dexamethasone 10mg IV (high dose), decrease to 6mg IV daily for 5 days then stop, day 1 of 6mg completed remdesivir on 08/03 completed zithromax on 08/04 no evidence of complicating PE or bacterial superinfection CRP <7.5 thus did not meet criteria for tocilizumab, was d/w pulmonology prognosis is rapidly improving, today was his best day of the past week encouraged him to continue to lay prone as much as he can, really working (2) Acute respiratory failure with hypoxia: Plan: due to severe COVID-19 pneumonia see above continue high flow but starting to wean back (3) Acute pulmonary edema: Plan: continue Lasix 20mg IV daily to keep lungs dry Cr and BUN stable, K stable (4) Hypomagnesemia: Plan: repleted; resolved (5) Hypokalemia: Plan: K is 3.5, continue PO supplement (6) Diabetes mellitus type 2, uncontrolled: Plan: HbA1C 7.8% in April high requirements of insulin at home (novolog 100 units TID w/ meals, etc) sugars very labile was having hypoglycemia in floorperson with hyperglycemia in afternoon appreciate pharmacy help with glycemic management Lantus 30 units qAM and NPH 10 units in the AM with Novolog SS (7) Morbid obesity with BMI of 40.0-44.9, adult: Plan: BMI 42-43 (8) Sleep apnea: Plan: CPAP 11cm with blended O2 (9) Hypothyroidism: Plan: TSH 1.8 in January cont synthroid (10) Hyperlipidemia: Plan: not on meds for such (11) DVT prophylaxis: Plan: cont lovenox 0.5mg/kg BID given morbid obesity and high inflammatory markers (12) Hyponatremia: Plan: resolved Plan: continue to wean back on high flow encourage prone dexamethasone 6mg IV for 4 more days hopeful he will be ready for discharge by the end of the week Admission and Anticipated Discharge Date Admission Date: July 30, 2021 Subjective patient having a really good day today, laid prone for 4 hours with high flow his FiO2 is down to 65%, flow down to 30L, this is a HUGE improvement for him he is eating well, making plenty of urine with Lasix no fever, no chills, no sweats, minimal cough updated his while he was on phone with her in the room labs reviewed Review of Systems Review of Systems: All systems reviewed & are unremarkable except as noted in Subjective Respiratory: + cough, + dyspnea and + dyspnea on exertion Physical Exam Constitutional: well developed, well nourished, + morbidly obese and comfortable; no acute distress Neck: trachea midline and + thick neck Respiratory: + cough and + tachypneic; no respiratory distress and no labored breathing Auscultation: lungs clear to auscultation bilaterally; no crackles and no wheezes Cardiovascular: Rate/Rhythm: regular rate and regular rhythm Heart Sounds: normal S1 and normal S2; no murmur Extremities: normal capillary refill and + edema (trace in ankles) Gastrointestinal (Abdomen): normal bowel sounds, soft, nontender, no hepatosplenomegaly Musculoskeletal: no cyanosis or clubbing, extremities motor strength 5/5 Skin: no rashes, warm and dry Neurologic: normal touch/pain/proprioception, CN's II-XI intact bilaterally, moves all extremities and awake; no focal motor deficits Psychiatric: A+Ox3, euthymic affect Results & Data Results & Data ([facility]) Vital Signs (Past 12 Hours) Vital Signs Temp Pulse Pulse Pulse Resp BP Pulse Ox 08/10/21 08:00 08/10/21 07:47 85 20 90 08/10/21 07:44 68 26 H 91 08/10/21 07:32 36.5 C 68 18 121/75 91 08/10/21 04:44 36.5 C 63 20 165/95 H 94 08/10/21 03:30 63 24 94 08/09/21 23:58 68 08/09/21 23:35 79 22 94 Pulse Ox 08/10/21 08:00 90 08/10/21 07:47 08/10/21 07:44 08/10/21 07:32 08/10/21 04:44 08/10/21 03:30 08/09/21 23:58 08/09/21 23:35 Laboratory Results Laboratory Results - last 24 hr 08/09/21 08/09/21 08/09/21 12:45 16:11 17:18 Sodium Potassium Chloride Carbon Dioxide Anion Gap BUN Creatinine Est Cr Clr Drug Dosing Est GFR ( Amer) Est GFR (Non-Af Amer) BUN/Creatinine Ratio Glucose POC Glucose 102 H 197 H 171 H Calcium 08/09/21 08/10/21 08/10/21 20:17 08:11 08:37 Sodium 136 Potassium 3.5 Chloride 99 Carbon Dioxide 30 Anion Gap 7.0 BUN 21 H Creatinine 0.95 Est Cr Clr Drug Dosing 116.3 Est GFR ( Amer) 96.3 Est GFR (Non-Af Amer) 83.1 BUN/Creatinine Ratio 22.2 H Glucose 138 H POC Glucose 193 H 79 Calcium 9.3 Medications Administered Current Inpatient Medications Acetaminophen (Acetaminophen 325 Mg Tab) 650 mg PO Q4H PRN PRN Reason: Pain or Fever Stop: 08/29/21 23:19 Last Admin: 07/31/21 01:46 Dose: 650 mg Documented by: Albuterol (Albuterol 0.083% Nebu Soln 3 Ml Vial) 2.5 mg NEB Q6R PRN PRN Reason: Shortness Of Breath Or Wheezing Stop: 09/01/21 18:59 Dextrose (Dextrose 50% 50 Ml Syringe) 25 - 50 ml IV UD PRN; Protocol PRN Reason: Hypoglycemia Protocol Stop: 08/29/21 23:19 Diphenhydramine HCl (Diphenhydramine Capsule 25 Mg Cap) 25 mg PO DAILY VIDYA Stop: 08/30/21 08:59 Last Admin: 08/10/21 09:19 Dose: 25 mg Documented by: Enoxaparin Sodium (Enoxaparin 80 Mg/0.8 Ml Syr) 70 mg SQ Q12H VIDYA Stop: 08/31/21 11:59 Last Admin: 08/10/21 01:00 Dose: 70 mg Documented by: Fluticasone Propionate (Fluticasone Propionate Na Spr 16 Gm Btl) 1 sprays NA DAILY PRN PRN Reason: Nasal Congestion Stop: 08/30/21 08:59 Glucagon (Glucagon For Inj 1 Mg Vial) 1 mg SQ UD PRN; Protocol PRN Reason: Hypoglycemia Protocol Stop: 08/29/21 23:19 Glucose (Glucose 10 Tabs/Tube) 4 - 8 tabs PO UD PRN; Protocol PRN Reason: Hypoglycemia Protocol Stop: 08/29/21 23:19 Glucose (Glucose 40% Gel 15 Gm Tube) 15 - 30 gm PO UD PRN; Protocol PRN Reason: Hypoglycemia Protocol Stop: 08/29/21 23:19 Hydrochlorothiazide (Hydrochlorothiazide 25 Mg Tab) 25 mg PO BID [facility] Stop: 08/30/21 00:59 Last Admin: 07/31/21 19:35 Dose: 25 mg Documented by: Furosemide 20 mg/ Syringe 2 mls @ 4 mls/min IV QAM [facility] Stop: 09/07/21 08:59 Last Admin: 08/10/21 09:16 Dose: 4 mls/min Documented by: Dexamethasone 6 mg/ Syringe 1.5 mls @ 1 mls/min IV QAM [facility] Stop: 09/09/21 08:59 Last Admin: 08/10/21 09:16 Dose: 1 mls/min Documented by: Insulin Aspart (Insulin Aspart 100 Units/Ml 3 Ml Pen) 0 units SC AC [facility] Stop: 09/07/21 16:29 Last Admin: 08/10/21 09:21 Dose: 19 units Documented by: Insulin Aspart (Insulin Aspart 100 Units/Ml 3 Ml Pen) 0 units SC HS [facility] Stop: 09/07/21 20:59 Last Admin: 08/09/21 21:00 Dose: 1 units Documented by: Insulin Glargine (Insulin Glargine 100 Unit/Ml Vial) [facility] [place] Stop: 09/08/21 11:29 Last Admin: 08/10/21 09:23 Dose: 30 units Documented by: Insulin Human NPH (Insulin Human Nph) 10 units SC DAILY [facility]; Protocol Stop: 09/09/21 08:59 Last Admin: 08/10/21 09:29 Dose: 10 units Documented by: Levothyroxine Sodium (Levothyroxine Sodium 150 Mcg Tablet) [facility] Stop: 08/30/21 06:29 Last Admin: 08/10/21 06:21 Dose: 150 mcg Documented by: Losartan Potassium (Losartan Potassium 25 Mg Tab) 25 mg PO DAILY [facility] Stop: 08/30/21 08:59 Last Admin: 08/01/21 08:29 Dose: 25 mg Documented by: Miscellaneous (Carbohydrates For Hypoglycemia ) 15 - 30 gm PO UD PRN PRN Reason: Hypoglycemia Protocol Stop: 08/29/21 23:19 Last Admin: 08/07/21 06:49 Dose: 15 gm Documented by: Miscellaneous Information (Pharmacy Glycemic Mgmt Consult) 1 ea N/A UD PRN PRN Reason: Consult Stop: 09/07/21 10:54 Mupirocin (Mupirocin 2% Oint 22 Gm Tube) 1 appln EXT BID PRN PRN Reason: NASAL DRYNESS Stop: 08/30/21 01:41 Ondansetron HCl (Ondansetron Inj 2 Mg/Ml 2 Ml Vial) 4 mg IV Q6H PRN PRN Reason: Nausea Stop: 08/29/21 23:19 Oxybutynin Chloride (Oxybutynin Chloride Xl 5 Mg Tabcr) 10 mg PO QPM VIDYA Stop: 08/30/21 00:59 Last Admin: 08/01/21 20:01 Dose: 10 mg Documented by: Potassium Chloride (Potassium Chloride Crtab 20 Meq Tabcr) 20 meq PO BID VIDYA Stop: 09/04/21 20:59 Last Admin: 08/10/21 09:19 Dose: 20 meq Documented by: Sodium Chloride (Sodium Chloride 0.65% Na Soln 45 Ml ([place])) 2 sprays NA DAILY PRN PRN Reason: NASAL DRYNESS Stop: 08/29/21 23:19 PG Care Time/CCT Total # of Minutes Spent Total Time Spent with Patient: Total time spent is greater than 50% in coordination of care (as documented) at patient's floor/unit and/or counseling patient: Coding Level of Care Code 73017 Subseq Hosp Care Lvl 3 Diagnoses Pneumonia due to 2019-nCoV U07.1; J12.82 Acute respiratory failure with hypoxia J96.01 Acute pulmonary edema J81.0 Hypomagnesemia E83.42 Hypokalemia E87.6 Diabetes mellitus type 2, uncontrolled E11.65 Morbid obesity with BMI of 40.0-44.9, adult E66.01; Z68.41 Sleep apnea G47.30 Hypothyroidism E03.9 Hyperlipidemia E78.5 DVT prophylaxis Z29.9 Hyponatremia E87.1
[2021-08-11] MEDS: ENOXAPARIN 80 MG/0.8 ML SYR SQ SCH ×2 (01:00→12:42)
[2021-08-11] MEDS: LEVOTHYROXINE SODIUM 150 MCG TABLET PO SCH (06:29)
[2021-08-11] MEDS: CARBOHYDRATES FOR HYPOGLYCEMIA PO PRN (08:03)
[2021-08-11] MEDS: POTASSIUM CHLORIDE CRTAB 20 MEQ TABCR PO SCH ×2 (08:07→20:37)
[2021-08-11] MEDS: diphenhydrAMINE Capsule 25 MG CAP PO SCH (08:07)
[2021-08-11] MEDS ORDERED: INSULIN HUMAN NPH SC SCH (09:00)
[2021-08-11] MEDS ORDERED: INSULIN GLARGINE 100 UNIT/ML VIAL SC SCH (09:00)
[2021-08-11] MEDS: INSULIN ASPART 100 UNITS/ML 3 ML PEN SC SCH ×4 (09:08→21:20)
[2021-08-11] MEDS: FUROSEMIDE 20 MG in SYRINGE 0 ML IV SCH (09:08)
[2021-08-11] MEDS: dexAMETHasone 6 MG in SYRINGE 0 ML IV SCH (09:08)
--- NOTE | 2021-08-11 11:02 | Pharmacy Report ---
Pharmacy Glycemic Short Note 2 - Date of Service August 11, 2021 - Glycemic Short BSG Results (Last 24 hours): 08/10/21 08/10/21 08/10/21 11:45 16:48 16:50 POC Glucose 167 H 310 H* 313 H* 08/10/21 08/11/21 08/11/21 19:59 07:54 08:14 POC Glucose 314 H* 68 L* 94 OUTPATIENT ANTIDIABETIC REGIMEN: * Lantus 28 units AM + 33 units PM * Novolog 40-100 units TID w/ meals per scale * Semaglutide 0.5mg SQ weekly * Metformin 1000mg AM + 1500mg PM * A1c = 7.8% 05/02/21 ASSESSMENT: 08/11 * 126 units SQ given last night * Fasting BSG 68 this AM w/ 30 units Lantus on board, and after receiving 10 units NPH yesterday. * Post-prandial hyperglycemia again problematic. Novolog doses with meals will be increased * Will move units from Lantus to NPH to lessen risk of fasting AM hypoglycemia and to better combat post-prandial BSG rise. * Will also decrease HS Novolog dose to lessen risk of fasting AM hypoglycemia. 08/09 * Pt has received 132 units of insulin over the past 24hrs * 35 units of basal with Lantus * 97 units of bolus with NovoLog * AM fasting BSG remains low {again}. Only slightly hypo at 68mg/dl. Will slightly decrease Lantus from 35 units to 30 units. * Regimen is heavily weighted towards NovoLog- however, this is c/w outpatient dosing. AM fasting BSG trends low with minimal basal and post-prandial BSGs remain high despite aggressive CHO coverage. * Last day of dex today - possibly extending duration a few more days with dex 6mg IV. Will add a small dose of NPH to help cover steroid induced hyperglycemia and hopefully reduce the large doses of Novolog given (40+ units at meals). 08/08 * Highly insulin resistant type 2 diabetic admitted for COVID19 viral pna * Outpt insulin regimen provides > 300 units / day * High dose IV dexamethasone continues, however tomorrow will be day 10 of 10. * Current BSG pattern suggests excess basal + / - HS correctional insulin. Will reduce basal insulin and adjust Novolog scale given at HS * Post-prandial hyperglycemia observed despite aggressive Novolog regimen, will provide additional prandial units and add a low dose of NPH tomorrow given it will be the final day of therapy, plus given his fasting AM hypoglycemic episodes NPH could carry a risk if dosed at usual level PLAN FOR INPATIENT GLYCEMIC CONTROL: * Hold outpatient diabetes medications * Basal insulin * Lantus 25 units SQ QAM * NPH 15 units Q AM w/ IV dexamethasone * Bolus insulin * NovoLog per scale ACHS or Q6hrs while NPO * Goal Range: Low 110 mg/dL - High 140 mg/dL * Correction Factor: 5 mg/dL/unit before meals, and 15mg/dL/unit at HS * Nutritional / Prandial insulin per carb ratio of 1 unit per 1.5 grams CHO consumed with meals and 1 unit per 5 grams CHO consumed at HS PLAN FOR DISCHARGE: * A1c is in goal range; no changes needed at dc * Insulin may need adjusted if patient is to dc on extended steroid taper.
--- NOTE | 2021-08-11 19:02 | Hospitalist Progress Note ---
Date of Service August 11, 2021 Assessment & Plan (1) Pneumonia due to 2019-nCoV: Plan: remains on high settings of HFNC but overall improved relative to my last visit 1 week ago. he is well over 20 days into his illness. completed 10 days of high-dose dexamethasone 10mg daily. now on 6mg daily x 5 days, day #2 of such. s/p 5-day course of remdesivir. s/p 5-day course of zithromax. has been diuresed with IV lasix much of his stay. never met criteria for tocilizumab. cont aggressive pulmonary toilet. wean HFNC as tolerated. cont lovenox 0.5mg/kg BID. (2) Acute respiratory failure with hypoxia: Plan: 2nd severe COVID-19 pneumonia slowly improving see above in #1 plan - cont HFNC during the day, CPAP 11cm with blended O2 at HS (is on CPAP at home for PADMINI) cont pulmonary toilet (3) Acute pulmonary edema: Plan: has received daily diuresis since admission patient looks euvolemic today hold lasix and re-eval for ongoing lasix tomorrow (4) Hypomagnesemia: Plan: resolved (5) Hypokalemia: Plan: resolved remains on K supplementation (6) Diabetes mellitus type 2, uncontrolled: Plan: HbA1C 7.8% in April high requirements of insulin at home (novolog 100 units TID w/ meals, etc) uncontrolled and labile during the visit pharmacy now managing - consult and recs appreciated (7) Morbid obesity with BMI of 40.0-44.9, adult: Plan: BMI 43 (8) Sleep apnea: Plan: CPAP 11cm with blended O2 (9) Hypothyroidism: Plan: TSH 1.8 in January cont synthroid (10) Hyperlipidemia: Plan: not on meds for such (11) DVT prophylaxis: Plan: cont lovenox 0.5mg/kg BID given morbid obesity and concurrent COVID illness (12) Hyponatremia: Plan: resolved Plan: extensively updated by phone today PT, OT kirby Admission and Anticipated Discharge Date Admission Date: July 30, 2021 Subjective patient sitting on side of bed during the visit. looks much better in comparison to my previous visit with him (8 days ago). he is in good spirits, no dyspnea. sats about 90% on HFNC during the visit. states taste/smell are back to normal. eating better. did work with OT today. trying to prone and continues with pulm toilet. tele overnight wnl. Review of Systems Review of Systems: gen - no fevers or chills CV - no chest pain pulm - coughing, minimal sputum; +PUGH GI - no nausea/emesis/diarrhea Physical Exam Physical Exam: gen - morbidly obese, no distress, looks much better than previous exam mouth - MMM neck - no JVD heart - RRR, s1 s2, no murmur lungs - minimal end-exp wheeze b/l; airation improved relative to prior exams; scant basilar rales abd - obese, soft, NT, ND, BS+ ext - no edema; pulses 2+ b/l psych - a/o x 3 Results & Data Results & Data ([facility]) Vital Signs (Past 12 Hours) Vital Signs Temp Pulse Resp BP BP Pulse Ox Pulse Ox 08/11/21 15:21 36.6 C 94 H 22 122/79 92 08/11/21 15:07 102 H 18 91 08/11/21 11:39 36.6 C 97 H 18 95/69 L 92 08/11/21 11:12 97 H 18 92 08/11/21 09:40 89 L 08/11/21 07:55 36.7 C 74 17 126/63 92 08/11/21 07:28 74 20 92 Laboratory Results Laboratory Results - last 24 hr 08/10/21 08/11/21 08/11/21 19:59 07:54 08:14 POC Glucose 314 H* 68 L* 94 08/11/21 08/11/21 11:38 16:50 POC Glucose 151 H 153 H PG Care Time/CCT Total # of Minutes Spent Total Time Spent with Patient: Total time spent is greater than 50% in coordination of care (as documented) at patient's floor/unit and/or counseling patient: Coding Level of Care Code 93109 Subseq Hosp Care Lvl 2 Diagnoses Pneumonia due to 2019-nCoV U07.1; J12.82 Acute respiratory failure with hypoxia J96.01 Acute pulmonary edema J81.0 Hypomagnesemia E83.42 Hypokalemia E87.6 Diabetes mellitus type 2, uncontrolled E11.65 Morbid obesity with BMI of 40.0-44.9, adult E66.01; Z68.41 Sleep apnea G47.30 Hypothyroidism E03.9 Hyperlipidemia E78.5 DVT prophylaxis Z29.9 Hyponatremia E87.1
[2021-08-12] MEDS: ENOXAPARIN 80 MG/0.8 ML SYR SQ SCH ×2 (00:03→13:09)
[2021-08-12] MEDS: LEVOTHYROXINE SODIUM 150 MCG TABLET PO SCH (06:11)
[2021-08-12 07:15] LABS: Hematocrit (blood only) 44.7 % (42-52); Hemoglobin 14.7 g/dL (14.0-18.0); Mean Corpuscular Hemoglobin 29.9 pg (25-34); Mean Corpuscular Hgb Conc 32.9 g/dL (32-36); Mean Platelet Volume 9.4 fL (7.4-10.4); Platelet Count 340 K/uL (130-400); RDW Coefficient of Variation 14.2 % (11.5-14.5); RDW Standard Deviation 47.8 fL (36.4-46.3); Red Blood Count 4.91 M/uL (4.7-6.1); White Blood Count 17.64 K/uL (4.8-10.8)
[2021-08-12 07:43] LABS: BUN Creatinine Ratio 20.3 (10-20); Creatinine Clr Calc Pharmacy 116.7 ml/min; Est GFR (African American) 98.8 ml/min; Est GFR (Non-African American) 85.2 ml/min; Potassium 4.2 mmol/L (3.5-5.1)
[2021-08-12] MEDS: INSULIN HUMAN NPH SC SCH (08:49)
[2021-08-12] MEDS: dexAMETHasone 6 MG in SYRINGE 0 ML IV SCH (08:49)
[2021-08-12] MEDS: FUROSEMIDE 20 MG TAB PO SCH (08:50)
[2021-08-12] MEDS: POTASSIUM CHLORIDE CRTAB 20 MEQ TABCR PO SCH (08:50)
[2021-08-12] MEDS: diphenhydrAMINE Capsule 25 MG CAP PO SCH (08:51)
[2021-08-12] MEDS: INSULIN ASPART 100 UNITS/ML 3 ML PEN SC SCH ×4 (08:53→22:57)
[2021-08-12] MEDS ORDERED: INSULIN GLARGINE 100 UNIT/ML VIAL SC SCH (09:00)
--- NOTE | 2021-08-12 14:21 | Pharmacy Report ---
Pharmacy Glycemic Short Note 2 - Date of Service August 12, 2021 - Glycemic Short BSG Results (Last 24 hours): 08/11/21 08/11/21 08/12/21 16:50 20:22 04:44 Glucose POC Glucose 153 H 236 H 53 L* 08/12/21 08/12/21 08/12/21 04:45 05:05 06:28 Glucose 120 H POC Glucose 51 L* 70 08/12/21 08/12/21 08:10 12:10 Glucose POC Glucose 91 75 OUTPATIENT ANTIDIABETIC REGIMEN: * Lantus 28 units AM + 33 units PM * Novolog 40-100 units TID w/ meals per scale * Semaglutide 0.5mg SQ weekly * Metformin 1000mg AM + 1500mg PM * A1c = 7.8% 05/02/21 ASSESSMENT: 08/12: * Patient received 160 units of insulin yesterday (40 of which were basal insulin) * Fasting BSG low again today and evening BSG elevated. Lantus was decreased, NPH was increased. Lunch BSG significantly decreased from days prior, will loosen novolog scale. * Patient continues on dexamethasone and is ordered a diet 08/11 * 126 units SQ given last night * Fasting BSG 68 this AM w/ 30 units Lantus on board, and after receiving 10 units NPH yesterday. * Post-prandial hyperglycemia again problematic. Novolog doses with meals will be increased * Will move units from Lantus to NPH to lessen risk of fasting AM hypoglycemia and to better combat post-prandial BSG rise. * Will also decrease HS Novolog dose to lessen risk of fasting AM hypoglycemia. 08/09 * Pt has received 132 units of insulin over the past 24hrs * 35 units of basal with Lantus * 97 units of bolus with NovoLog * AM fasting BSG remains low {again}. Only slightly hypo at 68mg/dl. Will slightly decrease Lantus from 35 units to 30 units. * Regimen is heavily weighted towards NovoLog- however, this is c/w outpatient dosing. AM fasting BSG trends low with minimal basal and post-prandial BSGs remain high despite aggressive CHO coverage. * Last day of dex today - possibly extending duration a few more days with dex 6mg IV. Will add a small dose of NPH to help cover steroid induced hyperglycemia and hopefully reduce the large doses of Novolog given (40+ units at meals). 08/08 * Highly insulin resistant type 2 diabetic admitted for COVID19 viral pna * Outpt insulin regimen provides > 300 units / day * High dose IV dexamethasone continues, however tomorrow will be day 10 of 10. * Current BSG pattern suggests excess basal + / - HS correctional insulin. Will reduce basal insulin and adjust Novolog scale given at HS * Post-prandial hyperglycemia observed despite aggressive Novolog regimen, will provide additional prandial units and add a low dose of NPH tomorrow given it will be the final day of therapy, plus given his fasting AM hypoglycemic epi sodes NPH could carry a risk if dosed at usual level PLAN FOR INPATIENT GLYCEMIC CONTROL: * Hold outpatient diabetes medications * Basal insulin * Lantus 20 units SQ QAM * NPH 18 units Q AM w/ IV dexamethasone * Bolus insulin * NovoLog per scale ACHS or Q6hrs while NPO * Goal Range: Low 110 mg/dL - High 140 mg/dL * Correction Factor: 10 mg/dL/unit before meals, and 25mg/dL/unit at HS * Nutritional / Prandial insulin per carb ratio of 1 unit per 6 grams CHO consumed with meals and 1 unit per 5 grams CHO consumed at HS PLAN FOR DISCHARGE: * A1c is in goal range; no changes needed at dc * Insulin may need adjusted if patient is to dc on extended steroid taper.
--- NOTE | 2021-08-12 20:56 | Hospitalist Progress Note ---
Date of Service August 12, 2021 Assessment & Plan (1) Pneumonia due to 2019-nCoV: Plan: cont on HFNC with slow progress/slow weaning. but he is stable and certainly in a much better state than 1+ weeks ago. completed 10 days of high-dose dexamethasone 10mg daily. now on 6mg daily x 5 days, day #3 of such. s/p 5-day course of remdesivir. s/p 5-day course of zithromax. has been diuresed with IV lasix much of his stay. IV lasix now over to 20mg lasix qam. never met criteria for tocilizumab. cont aggressive pulmonary toilet. wean HFNC as tolerated. cont lovenox 0.5mg/kg BID. (2) Acute respiratory failure with hypoxia: Plan: 2nd severe COVID-19 pneumonia slowly improving see above in #1 cont HFNC during the day, CPAP 11cm with blended O2 at HS (is on CPAP at home for PADMINI) (3) Acute pulmonary edema: Plan: resolved d/c IV lasix change to po lasix 20mg daily bmp am (4) Hypomagnesemia: Plan: resolved (5) Hypokalemia: Plan: resolved remains on K supplementation; change from TID dosing to once daily (6) Diabetes mellitus type 2, uncontrolled: Plan: HbA1C 7.8% in April high requirements of insulin at home (novolog 100 units TID w/ meals, etc) uncontrolled and labile during the visit with AM hypoglycemia pharmacy adjusting long-acting insulins (7) Morbid obesity with BMI of 40.0-44.9, adult: Plan: BMI 41 (8) Sleep apnea: Plan: CPAP 11cm with blended O2 (9) Hypothyroidism: Plan: TSH 1.8 in January cont synthroid (10) Hyperlipidemia: Plan: not on meds for such (11) DVT prophylaxis: Plan: cont lovenox 0.5mg/kg BID given morbid obesity and concurrent COVID illness (12) Hyponatremia: Plan: resolved Plan: left message for today on voicemail spoke directly with patient's yesterday on phone PT, OT kirby requested and appreciated Admission and Anticipated Discharge Date Admission Date: July 30, 2021 Subjective no events overnight tele stable used nasal CPAP overnight, then back to HFNC this am O2 requirements are unchanged from previous (80% FiO2) he was a bit discouraged today because he knows that he is not near his discharge date eating well praying and reading his Bible Review of Systems Review of Systems: gen - no fevers, no chills psych - admits to depressed mood but declines intervention of such CV - no chest pain pulm - cough, no change in such GI - no vomiting/nausea/diarrhea Physical Exam Physical Exam: gen - morbidly obese, no distress, sitting at side of bed mouth - MMM neck - no JVD heart - RRR, s1 s2, no murmur lungs - minimal basilar rales; airation fair; no wheeze; no distress abd - obese, soft, NT, ND, BS+ ext - no edema; pulses 2+ b/l psych - a/o x 3 but affect a little restricted Results & Data Results & Data ([facility]) Vital Signs (Past 12 Hours) Vital Signs Temp Pulse Pulse Resp BP Pulse Ox 08/12/21 19:46 102 H 24 94 08/12/21 19:32 36.9 C 08/12/21 19:30 110 H 24 170/98 H 91 08/12/21 15:38 36.8 C 83 19 110/72 96 08/12/21 15:25 78 20 92 08/12/21 12:11 36.9 C 77 22 100/51 L 94 08/12/21 11:15 70 20 89 L Laboratory Results Laboratory Results - last 24 hr 08/12/21 08/12/21 08/12/21 04:44 04:45 05:05 WBC RBC Hgb Hct MCV MCH MCHC RDW Std Deviation RDW Coeff of Mary Plt Count MPV Sodium Potassium Chloride Carbon Dioxide Anion Gap BUN Creatinine Est Cr Clr Drug Dosing Est GFR ( Amer) Est GFR (Non-Af Amer) BUN/Creatinine Ratio Glucose POC Glucose 53 L* 51 L* 70 Calcium 08/12/21 08/12/21 08/12/21 06:28 06:28 08:10 WBC 17.64 H RBC 4.91 Hgb 14.7 Hct 44.7 MCV 91.0 MCH 29.9 MCHC 32.9 RDW Std Deviation 47.8 H RDW Coeff of Mary 14.2 Plt Count 340 MPV 9.4 Sodium 137 Potassium 4.2 D Chloride 101 Carbon Dioxide 32 Anion Gap 4.0 BUN 19 H Creatinine 0.93 Est Cr Clr Drug Dosing 116.7 Est GFR ( Amer) 98.8 Est GFR (Non-Af Amer) 85.2 BUN/Creatinine Ratio 20.3 H Glucose 120 H POC Glucose 91 Calcium 9.0 08/12/21 08/12/21 08/12/21 12:10 17:13 20:15 WBC RBC Hgb Hct MCV MCH MCHC RDW Std Deviation RDW Coeff of Mary Plt Count MPV Sodium Potassium Chloride Carbon Dioxide Anion Gap BUN Creatinine Est Cr Clr Drug Dosing Est GFR ( Amer) Est GFR (Non-Af Amer) BUN/Creatinine Ratio Glucose POC Glucose 75 136 H 108 H Calcium PG Care Time/CCT Total # of Minutes Spent Total Time Spent with Patient: Total time spent is greater than 50% in coordination of care (as documented) at patient's floor/unit and/or counseling patient: Coding Level of Care Code 90372 Subseq Hosp Care Lvl 2 Diagnoses Pneumonia due to 2019-nCoV U07.1; J12.82 Acute respiratory failure with hypoxia J96.01 Acute pulmonary edema J81.0 Hypomagnesemia E83.42 Hypokalemia E87.6 Diabetes mellitus type 2, uncontrolled E11.65 Morbid obesity with BMI of 40.0-44.9, adult E66.01; Z68.41 Sleep apnea G47.30 Hypothyroidism E03.9 Hyperlipidemia E78.5 DVT prophylaxis Z29.9 Hyponatremia E87.1
[2021-08-13] MEDS: ENOXAPARIN 80 MG/0.8 ML SYR SQ SCH ×2 (01:00→13:09)
[2021-08-13] MEDS: LEVOTHYROXINE SODIUM 150 MCG TABLET PO SCH (06:31)
[2021-08-13] MEDS: INSULIN ASPART 100 UNITS/ML 3 ML PEN SC SCH ×4 (08:49→20:59)
[2021-08-13] MEDS: diphenhydrAMINE Capsule 25 MG CAP PO SCH (08:51)
[2021-08-13] MEDS: FUROSEMIDE 20 MG TAB PO SCH (08:51)
[2021-08-13] MEDS: dexAMETHasone 6 MG in SYRINGE 0 ML IV SCH (08:51)
[2021-08-13] MEDS: POTASSIUM CHLORIDE CRTAB 20 MEQ TABCR PO SCH (08:52)
[2021-08-13] MEDS: INSULIN HUMAN NPH SC SCH (08:53)
[2021-08-13] MEDS: INSULIN GLARGINE 100 UNIT/ML VIAL SC SCH (08:53)
--- NOTE | 2021-08-13 13:40 | Pharmacy Report ---
Pharmacy Glycemic Short Note 2 - Date of Service August 13, 2021 - Glycemic Short BSG Results (Last 24 hours): 08/12/21 08/12/21 08/13/21 17:13 20:15 07:51 POC Glucose 136 H 108 H 171 H 08/13/21 11:50 POC Glucose 247 H OUTPATIENT ANTIDIABETIC REGIMEN: * Lantus 28 units AM + 33 units PM * Novolog 40-100 units TID w/ meals per scale * Semaglutide 0.5mg SQ weekly * Metformin 1000mg AM + 1500mg PM * A1c = 7.8% 05/02/21 ASSESSMENT: 08/13: Patient received 117 units of insulin yesterday Fasting BSG elevated today, slightly increased lantus to 22 units, continued NPH with decadron Tightened novolog scael as lunch BSG also elevated. 08/12: * Patient received 160 units of insulin yesterday (40 of which were basal insulin) * Fasting BSG low again today and evening BSG elevated. Lantus was decreased, NPH was increased. Lunch BSG significantly decreased from days prior, will loosen novolog scale. * Patient continues on dexamethasone and is ordered a diet 08/11 * 126 units SQ given last night * Fasting BSG 68 this AM w/ 30 units Lantus on board, and after receiving 10 units NPH yesterday. * Post-prandial hyperglycemia again problematic. Novolog doses with meals will be increased * Will move units from Lantus to NPH to lessen risk of fasting AM hypoglycemia and to better combat post-prandial BSG rise. * Will also decrease HS Novolog dose to lessen risk of fasting AM hypoglycemia. 08/09 * Pt has received 132 units of insulin over the past 24hrs * 35 units of basal with Lantus * 97 units of bolus with NovoLog * AM fasting BSG remains low {again}. Only slightly hypo at 68mg/dl. Will slig htly decrease Lantus from 35 units to 30 units. * Regimen is heavily weighted towards NovoLog- however, this is c/w outpatient dosing. AM fasting BSG trends low with minimal basal and post-prandial BSGs remain high despite aggressive CHO coverage. * Last day of dex today - possibly extending duration a few more days with dex 6mg IV. Will add a small dose of NPH to help cover steroid induced hyperg lycemia and hopefully reduce the large doses of Novolog given (40+ units at meals). 08/08 * Highly insulin resistant type 2 diabetic admitted for COVID19 viral pna * Outpt insulin regimen provides > 300 units / day * High dose IV dexamethasone continues, however tomorrow will be day 10 of 10. * Current BSG pattern suggests excess basal + / - HS correctional insulin. Will reduce basal insulin and adjust Novolog scale given at HS * Post-prandial hyperglycemia observed despite aggressive Novolog regimen, will provide additional prandial units and add a low dose of NPH tomorrow given it will be the final day of therapy, plus given his fasting AM hypoglycemic episodes NPH could carry a risk if dosed at usual level PLAN FOR INPATIENT GLYCEMIC CONTROL: * Hold outpatient diabetes medications * Basal insulin * Lantus 22 units SQ QAM * NPH 18 units Q AM w/ IV dexamethasone * Bolus insulin * NovoLog per scale ACHS or Q6hrs while NPO * Goal Range: Low 110 mg/dL - High 140 mg/dL * Correction Factor: 10 mg/dL/unit before meals, and 25mg/dL/unit at HS * Nutritional / Prandial insulin per carb ratio of 1 unit per 2 grams CHO consumed with meals and 1 unit per 6 grams CHO consumed at HS PLAN FOR DISCHARGE: * A1c is in goal range; no changes needed at dc * Insulin may need adjusted if patient is to dc on extended steroid taper.
--- NOTE | 2021-08-13 22:20 | Hospitalist Progress Note ---
Date of Service August 13, 2021 Assessment & Plan (1) Pneumonia due to 2019-nCoV: Plan: improving HFNC stopped today now on 10-12 L NC -- wean as tolerated completed 10 days of high-dose dexamethasone 10mg daily. now on 6mg daily x 5 days, day #4 of such. s/p 5-day course of remdesivir. s/p 5-day course of zithromax. s/p IV diuresis much of the stay - now off. never met criteria for tocilizumab. cont aggressive pulmonary toilet. cont lovenox 0.5mg/kg BID. (2) Acute respiratory failure with hypoxia: Plan: 2nd severe COVID-19 pneumonia slowly improving see above in #1 cont NC O2 daytime, CPAP 11cm HS (3) Acute pulmonary edema: Plan: resolved cont lasix 20mg po daily (4) Hypomagnesemia: Plan: resolved (5) Hypokalemia: Plan: resolved (6) Diabetes mellitus type 2, uncontrolled: Plan: HbA1C 7.8% in April high requirements of insulin at home (novolog 100 units TID w/ meals, etc) uncontrolled and labile during the visit with AM hypoglycemia pharmacy adjusting long-acting insulins we are just about done with steroids - will be able to wean further (7) Morbid obesity with BMI of 40.0-44.9, adult: Plan: BMI 41-42 (8) Sleep apnea: Plan: CPAP 11cm with blended O2 (9) Hypothyroidism: Plan: TSH 1.8 in January cont synthroid (10) Hyperlipidemia: (11) DVT prophylaxis: Plan: cont lovenox 0.5mg/kg BID (12) Hyponatremia: Plan: resolved Plan: left message for yesterday on her voicemail PT, OT evals requested and appreciated cleared for home at discharge can likely d/c tele tomorrow Admission and Anticipated Discharge Date Admission Date: July 30, 2021 Subjective patient in good spirits today HFNC weaned off - now on 10 L NC O2 during the visit he was quite talkative which drove his O2 sats down to 86-87 I increased his O2 to 12 L and O2 sats improved to 90-92% w/ such he has minimal cough denies PUGH eating well he is adamant about going home at discharge; he feels he can do therapy at home indeed - PT/OT both saw him, recommending home with home therapy at discharge tele stable overnight Review of Systems Review of Systems: gen - no weakness, no anorexia, no fever CV - no chest pain pulm - no dyspnea GI - no pain, no diarrhea Physical Exam Physical Exam: gen - morbidly obese, no distress, sitting at side of bed mouth - MMM neck - no JVD heart - RRR, s1 s2, no murmur lungs - scant basilar rales; airation fair/good today; no wheeze; no distress abd - obese, soft, NT, ND, BS+ ext - no edema; pulses 2+ b/l psych - a/o x 3 ; good spirits today Results & Data Results & Data ([facility]) Vital Signs (Past 12 Hours) Vital Signs Temp Pulse Pulse Resp BP Pulse Ox 08/13/21 20:24 70 08/13/21 19:14 37.0 C 75 20 104/51 L 88 L 08/13/21 16:00 77 08/13/21 15:55 36.8 C 84 20 103/56 L 90 08/13/21 11:49 36.8 C 78 19 101/71 90 Laboratory Results Laboratory Results - last 24 hr 08/13/21 08/13/21 08/13/21 07:51 11:50 17:17 POC Glucose 171 H 247 H 201 H 08/13/21 20:32 POC Glucose 178 H PG Care Time/CCT Total # of Minutes Spent Total Time Spent with Patient: Total time spent is greater than 50% in coordination of care (as documented) at patient's floor/unit and/or counseling patient: Coding Level of Care Code 42416 Subseq Hosp Care Lvl 2 Diagnoses Pneumonia due to 2019-nCoV U07.1; J12.82 Acute respiratory failure with hypoxia J96.01 Acute pulmonary edema J81.0 Hypomagnesemia E83.42 Hypokalemia E87.6 Diabetes mellitus type 2, uncontrolled E11.65 Morbid obesity with BMI of 40.0-44.9, adult E66.01; Z68.41 Sleep apnea G47.30 Hypothyroidism E03.9 Hyperlipidemia E78.5 DVT prophylaxis Z29.9 Hyponatremia E87.1
[2021-08-14] MEDS: ENOXAPARIN 80 MG/0.8 ML SYR SQ SCH ×2 (00:23→13:28)
[2021-08-14] MEDS: LEVOTHYROXINE SODIUM 150 MCG TABLET PO SCH (05:21)
[2021-08-14 07:57] LABS: BUN Creatinine Ratio 18.2 (10-20); Calcium 8.6 mg/dl (8.5-10.1); Creatinine Clr Calc Pharmacy 132.4 ml/min; Est GFR (African American) 106.3 ml/min; Est GFR (Non-African American) 91.7 ml/min; Magnesium 2.2 mg/dl (1.8-2.4); Potassium 3.8 mmol/L (3.5-5.1)
[2021-08-14] MEDS: diphenhydrAMINE Capsule 25 MG CAP PO SCH (08:07)
[2021-08-14] MEDS: FUROSEMIDE 20 MG TAB PO SCH (08:07)
[2021-08-14] MEDS: POTASSIUM CHLORIDE CRTAB 20 MEQ TABCR PO SCH (08:07)
[2021-08-14] MEDS ORDERED: INSULIN HUMAN NPH SC SCH (09:00)
[2021-08-14] MEDS: dexAMETHasone 6 MG in SYRINGE 0 ML IV SCH (09:42)
[2021-08-14] MEDS: INSULIN ASPART 100 UNITS/ML 3 ML PEN SC SCH ×4 (09:43→21:02)
[2021-08-14] MEDS: INSULIN GLARGINE 100 UNIT/ML VIAL SC SCH (09:46)
--- NOTE | 2021-08-14 11:16 | Pharmacy Report ---
Pharmacy Glycemic Short Note 2 - Date of Service August 14, 2021 - Glycemic Short BSG Results (Last 24 hours): 08/13/21 08/13/21 08/13/21 11:50 17:17 20:32 Glucose POC Glucose 247 H 201 H 178 H 08/14/21 08/14/21 06:36 08:25 Glucose 186 H POC Glucose 178 H OUTPATIENT ANTIDIABETIC REGIMEN: * Lantus 28 units AM + 33 units PM * Novolog 40-100 units TID w/ meals per scale * Semaglutide 0.5mg SQ weekly * Metformin 1000mg AM + 1500mg PM * A1c = 7.8% 05/02/21 ASSESSMENT: 08/14: * Patient received 143 units insulin yesterday while tolerating a diet * Fasting BSG elevated x 2 days now. Today's FBS 178. 40 units basal were administered in last 24 hrs (22 units Lantus + 18 units NPH). Will continue similar basal dose for one more day as pt had been experiencing episodes of fasting hypoglycemia on higher basal doses this admission. * Post-prandial hyperglycemia observed 2 of 3 BSGs yesterday. Prandial coverage increased w/ supper and HS BSG at goal. * Plan to increase NPH dose slightly today, and trial continue the more aggressive carb coverage started yesterday evening. 08/13: Patient received 117 units of insulin yesterday Fasting BSG elevated today, slightly increased lantus to 22 units, continued NPH with decadron Tightened novolog scael as lunch BSG also elevated. 08/12: * Patient received 160 units of insulin yesterday (40 of which were basal insulin) * Fasting BSG low again today and evening BSG elevated. Lantus was decreased, NPH was increased. Lunch BSG significantly decreased from days prior, will loosen novolog scale. * Patient continues on dexamethasone and is ordered a diet 08/11 * 126 units SQ given last night * Fasting BSG 68 this AM w/ 30 units Lantus on board, and after receiving 10 units NPH yesterday. * Post-prandial hyperglycemia again problematic. Novolog doses with meals will be increased * Will move units from Lantus to NPH to lessen risk of fasting AM hypoglycemia and to better combat post-prandial BSG rise. * Will also decrease HS Novolog dose to lessen risk of fasting AM hypoglycemia. PLAN FOR INPATIENT GLYCEMIC CONTROL: * Hold outpatient diabetes medications * Basal insulin * Lantus 22 units SQ QAM * NPH 20 units Q AM w/ IV dexamethasone * Bolus insulin * NovoLog per scale ACHS or Q6hrs while NPO * Goal Range: Low 110 mg/dL - High 140 mg/dL * Correction Factor: 10 mg/dL/unit before meals, and 25mg/dL/unit at HS * Nutritional / Prandial insulin per carb ratio of 1 unit per 2 grams CHO consumed with meals and 1 unit per 6 grams CHO consumed at HS PLAN FOR DISCHARGE: * A1c is in goal range; no changes needed at dc * Insulin may need adjusted if patient is to dc on extended steroid taper.
--- NOTE | 2021-08-14 21:32 | Hospitalist Progress Note ---
Date of Service August 14, 2021 Assessment & Plan (1) Pneumonia due to 2019-nCoV: Plan: improving albeit very slowly HFNC stopped 08/13/21 now on wall-mounted HFNC 12 L wean as tolerated completed 10 days of high-dose dexamethasone 10mg daily. now on 6mg daily x 5 days, day #5 of such. wean to 4mg tomorrow x 2 days, then 2mg x 2 days, then stop all steroids. s/p 5-day course of remdesivir. s/p 5-day course of zithromax. s/p IV diuresis much of the stay - now on PO lasix with stable BMP. never met criteria for tocilizumab. cont aggressive pulmonary toilet. cont lovenox 0.5mg/kg BID. PT, OT. (2) Acute respiratory failure with hypoxia: Plan: 2nd severe COVID-19 pneumonia slowly improving see above in #1 cont NC O2 daytime, CPAP 11cm HS (3) Acute pulmonary edema: Plan: resolved cont lasix 20mg po daily (4) Hypomagnesemia: Plan: resolved (5) Hypokalemia: Plan: resolved (6) Diabetes mellitus type 2, uncontrolled: Plan: HbA1C 7.8% in April high requirements of insulin at home (novolog 100 units TID w/ meals, etc) pharmacy adjusting insulin regimen as we wean steroids (7) Morbid obesity with BMI of 40.0-44.9, adult: Plan: BMI 41-43 (8) Sleep apnea: Plan: CPAP 11cm with blended O2 (9) Hypothyroidism: Plan: TSH 1.8 in January cont synthroid (10) Hyperlipidemia: (11) DVT prophylaxis: Plan: cont lovenox 0.5mg/kg BID (12) Hyponatremia: Plan: intermittent, 2nd to lasix, etc follow with QOD bmp Plan: updated pt's by phone this evening cont PT, OT both advising home with therapy Admission and Anticipated Discharge Date Admission Date: July 30, 2021 Subjective no events overnight feels similar to yesterday walked in hallway with PT - "felt good" denies dyspnea at rest was tired at end of walk and had mild PUGH using CPAP at HS, wall-mounted high-flow during day eating well Review of Systems Review of Systems: gen - no fevers, no chills CV - no chest pain pulm - minimal cough GI - no diarrhea, emesis, nausea or pain Physical Exam Physical Exam: gen - morbidly obese, no distress, sitting at side of bed mouth - MMM neck - no JVD heart - RRR, s1 s2, no murmur lungs - CTA b/l, no rales or wheeze; airation fair; decreased BS bases abd - obese, soft, NT, ND, BS+ ext - no edema; pulses 2+ b/l psych - a/o x 3 Results & Data Results & Data ([facility]) Vital Signs (Past 12 Hours) Vital Signs Temp Pulse Pulse Pulse Resp BP Pulse Ox 08/14/21 19:30 37 C 86 20 146/81 H 89 L 08/14/21 15:54 36.7 C 77 16 114/74 93 08/14/21 15:42 76 Laboratory Results Laboratory Results - last 24 hr 08/11/21 08/14/21 08/14/21 07:49 06:36 08:25 Sodium 132 L Potassium 3.8 Chloride 99 Carbon Dioxide 30 Anion Gap 3.0 BUN 15 Creatinine 0.83 Est Cr Clr Drug Dosing 132.4 Est GFR ( Amer) 106.3 Est GFR (Non-Af Amer) 91.7 BUN/Creatinine Ratio 18.2 Glucose 186 H POC Glucose 68 L* 178 H Calcium 8.6 Magnesium 2.2 08/14/21 08/14/21 08/14/21 12:46 16:35 20:49 Sodium Potassium Chloride Carbon Dioxide Anion Gap BUN Creatinine Est Cr Clr Drug Dosing Est GFR ( Amer) Est GFR (Non-Af Amer) BUN/Creatinine Ratio Glucose POC Glucose 138 H 235 H 140 H Calcium Magnesium PG Care Time/CCT Total # of Minutes Spent Total Time Spent with Patient: Total time spent is greater than 50% in coordination of care (as documented) at patient's floor/unit and/or counseling patient: Coding Level of Care Code 10171 Subseq Hosp Care Lvl 2 Diagnoses Pneumonia due to 2019-nCoV U07.1; J12.82 Acute respiratory failure with hypoxia J96.01 Acute pulmonary edema J81.0 Hypomagnesemia E83.42 Hypokalemia E87.6 Diabetes mellitus type 2, uncontrolled E11.65 Morbid obesity with BMI of 40.0-44.9, adult E66.01; Z68.41 Sleep apnea G47.30 Hypothyroidism E03.9 Hyperlipidemia E78.5 DVT prophylaxis Z29.9 Hyponatremia E87.1
[2021-08-15] MEDS: ENOXAPARIN 80 MG/0.8 ML SYR SQ SCH ×2 (00:46→11:56)
[2021-08-15] MEDS: LEVOTHYROXINE SODIUM 150 MCG TABLET PO SCH (06:42)
[2021-08-15] MEDS: diphenhydrAMINE Capsule 25 MG CAP PO SCH (08:22)
[2021-08-15] MEDS: FUROSEMIDE 20 MG TAB PO SCH (08:22)
[2021-08-15] MEDS: POTASSIUM CHLORIDE CRTAB 20 MEQ TABCR PO SCH (08:23)
[2021-08-15] MEDS: dexAMETHasone 4 MG TAB PO SCH (09:48)
[2021-08-15] MEDS: INSULIN ASPART 100 UNITS/ML 3 ML PEN SC SCH ×4 (09:49→21:42)
[2021-08-15] MEDS: INSULIN HUMAN NPH SC SCH (09:51)
[2021-08-15] MEDS: INSULIN GLARGINE 100 UNIT/ML VIAL SC SCH (09:52)
--- NOTE | 2021-08-15 11:37 | Pharmacy Report ---
Pharmacy Glycemic Short Note 2 - Date of Service August 15, 2021 - Glycemic Short BSG Results (Last 24 hours): 08/11/21 08/14/21 08/14/21 07:49 12:46 16:35 POC Glucose 68 L* 138 H 235 H 08/14/21 08/15/21 08/15/21 20:49 04:04 08:05 POC Glucose 140 H 121 H 151 H OUTPATIENT ANTIDIABETIC REGIMEN: * Lantus 28 units AM + 33 units PM * Novolog 40-100 units TID w/ meals per scale * Semaglutide 0.5mg SQ weekly * Metformin 1000mg AM + 1500mg PM * A1c = 7.8% 05/02/21 ASSESSMENT: 08/15: * 154 units SQ administered in last 24 hours while tolerating a diet * Dexamethasone 6mg IV Q AM has been d/c and pt will begin 4mg PO Q AM instead today. Would expect less post-prandial insulin resistance with this change * Fasting BSG 151 this AM, improved over last 2 days. This is with 42 units basal on board (22 Lantus + 20 units NPH). * Plan to cut NPH dose in half today due to steroid change * Plan to continue current Novolog doses for the 1st portion of the day today and monitor post-prandial trend. 08/14: * Patient received 143 units insulin yesterday while tolerating a diet * Fasting BSG elevated x 2 days now. Today's FBS 178. 40 units basal were administered in last 24 hrs (22 units Lantus + 18 units NPH). Will continue similar basal dose for one more day as pt had been experiencing episodes of fasting hypoglycemia on higher basal doses this admission. * Post-prandial hyperglycemia observed 2 of 3 BSGs yesterday. Prandial coverage increased w/ supper and HS BSG at goal. * Plan to increase NPH dose slightly today, and trial continue the more aggressive carb coverage started yesterday evening. 08/13: Patient received 117 units of insulin yesterday Fasting BSG elevated today, slightly increased lantus to 22 units, continued NPH with decadron Tightened novolog scael as lunch BSG also elevated. 08/12: * Patient received 160 units of insulin yesterday (40 of which were basal insulin) * Fasting BSG low again today and evening BSG elevated. Lantus was decreased, NPH was increased. Lunch BSG significantly decreased from days prior, will loosen novolog scale. * Patient continues on dexamethasone and is ordered a diet 08/11 * 126 units SQ given last night * Fasting BSG 68 this AM w/ 30 units Lantus on board, and after receiving 10 units NPH yesterday. * Post-prandial hyperglycemia again problematic. Novolog doses with meals will be increased * Will move units from Lantus to NPH to lessen risk of fasting AM hypoglycemia and to better combat post-prandial BSG rise. * Will also decrease HS Novolog dose to lessen risk of fasting AM hypoglycemia. PLAN FOR INPATIENT GLYCEMIC CONTROL: * Hold outpatient diabetes medications * Basal insulin - decrease NPH * Lantus 22 units SQ QAM * NPH 10 units Q AM w/ PO dexamethasone * Bolus insulin * NovoLog per scale ACHS or Q6hrs while NPO * Goal Range: Low 110 mg/dL - High 140 mg/dL * Correction Factor: 10 mg/dL/unit before meals, and 25mg/dL/unit at HS (will only correct HS BSG if above 180) * Nutritional / Prandial insulin per carb ratio of 1 unit per 2 grams CHO consumed with meals and 1 unit per 6 grams CHO consumed at HS PLAN FOR DISCHARGE: * A1c is in goal range; no changes needed at dc * Insulin may need adjusted if patient is to dc on extended steroid taper.
--- NOTE | 2021-08-15 14:34 | XRay Report ---
XR chest 1V portable CLINICAL HISTORY: covid pneumonia, recent edema, interval change COMPARISON STUDY: August 01, 2021 FINDINGS: No pneumothorax. No pleural effusion. Lung volumes are decreased with crowded lung markings. Interval worsening of nodular and airspace opa cities within bilateral lungs, predominantly within right and left base. Cardiomediastinal silhouette is prominent and partially obscured by surrounding opacities. Pulmonary vasculature is indistinct. Accessory azygous lobe is again seen.. Osseous structures: Degenerative changes of the right shoulder and spine. IMPRESSION: 1. Interval worsening of the airspace opacities at bilateral lower lungs. 2. Low inspiratory effort is seen. No definite pleural effusion demonstrated. 3. The rest of findings as above. ACT 112: Negative or not required by law. The above report was generated using voice recognition software. It may contain grammatical, syntax o r spelling errors. Electronically signed by: Kerline Santiago DO 08/15/2021 2:33 PM
[2021-08-15] MEDS ORDERED: FUROSEMIDE 20 MG TAB PO ONE (17:15)
--- NOTE | 2021-08-15 21:23 | Hospitalist Progress Note ---
Date of Service August 15, 2021 Assessment & Plan (1) Pneumonia due to 2019-nCoV: Plan: improving slowly, steadily. HFNC stopped 08/13/21. now on wall-mounted HFNC 12-13 L. over last 2 days his weaning has slowed -- repeat a cxr to ensure no new findings. completed 10 days of high-dose dexamethasone 10mg daily. then completed 6mg daily x 5 days. finish wean - 4mg qd x 2 days, then 2mg qd x 2 days -- then d/c. s/p 5-day course of remdesivir. s/p 5-day course of zithromax. s/p IV diuresis much of the stay - now on PO lasix with stable BMP. never met criteria for tocilizumab. cont aggressive pulmonary toilet. cont lovenox 0.5mg/kg BID. PT, OT. (2) Acute respiratory failure with hypoxia: Plan: 2nd severe COVID-19 pneumonia slowly improving see above in #1 cont NC O2 daytime, CPAP 11cm HS (3) Acute pulmonary edema: Plan: cont lasix 20mg po daily repeat cxr today to ensure he doesn't need additional diuresis (4) Hypomagnesemia: Plan: resolved (5) Hypokalemia: Plan: resolved (6) Diabetes mellitus type 2, uncontrolled: Plan: HbA1C 7.8% in April high requirements of insulin at home (novolog 100 units TID w/ meals, etc) pharmacy adjusting insulin regimen as we wean steroids (7) Morbid obesity with BMI of 40.0-44.9, adult: Plan: BMI 41-43 (8) Sleep apnea: Plan: CPAP 11cm with blended O2 compliant with such at HS (9) Hypothyroidism: Plan: TSH 1.8 in January cont synthroid (10) Hyperlipidemia: (11) DVT prophylaxis: Plan: cont lovenox 0.5mg/kg BID (12) Hyponatremia: Plan: intermittent, 2nd to lasix, etc BMP am Plan: updated pt's by phone yesterday evening cont PT, OT both advising home with therapy can likely d/c tele in am Admission and Anticipated Discharge Date Admission Date: July 30, 2021 Subjective no events overnight pt feels the same as yesterday ambulating working w/ PT eating well no new complaints tele normal again overnight Review of Systems Review of Systems: gen - no fevers, no chills; energy improving CV - no chest pains, no orthopnea pulm - minimal cough; PUGH unchanged GI - moving bowels, soft; no nausea - voiding fine Physical Exam Physical Exam: gen - morbidly obese, no distress, sitting at side of bed, pleasant/talkative mouth - MMM neck - no JVD heart - RRR, s1 s2, no murmur lungs - fine rales bases (mild); no distress; good airation abd - obese, soft, NT, ND, BS+ ext - <1+ edema b/l; pulses 2+ b/l psych - a/o x 3 Results & Data Results & Data ([facility]) Vital Signs (Past 12 Hours) Vital Signs Temp Pulse Resp BP Pulse Ox 08/15/21 19:18 36.9 C 91 H 19 146/94 H 93 08/15/21 11:41 37.0 C 63 22 139/75 93 Laboratory Results Laboratory Results - last 24 hr 08/15/21 08/15/21 08/15/21 04:04 08:05 11:40 POC Glucose 121 H 151 H 144 H 08/15/21 16:23 POC Glucose 107 H PG Care Time/CCT Total # of Minutes Spent Total Time Spent with Patient: Total time spent is greater than 50% in coordination of care (as documented) at patient's floor/unit and/or counseling patient: Coding Level of Care Code 36846 Subseq Hosp Care Lvl 2 Diagnoses Pneumonia due to 2019-nCoV U07.1; J12.82 Acute respiratory failure with hypoxia J96.01 Acute pulmonary edema J81.0 Hypomagnesemia E83.42 Hypokalemia E87.6 Diabetes mellitus type 2, uncontrolled E11.65 Morbid obesity with BMI of 40.0-44.9, adult E66.01; Z68.41 Sleep apnea G47.30 Hypothyroidism E03.9 Hyperlipidemia E78.5 DVT prophylaxis Z29.9 Hyponatremia E87.1
[2021-08-16] MEDS: ENOXAPARIN 80 MG/0.8 ML SYR SQ SCH ×3 (00:01→23:58)
[2021-08-16] MEDS: LEVOTHYROXINE SODIUM 150 MCG TABLET PO SCH (06:43)
[2021-08-16] MEDS: FUROSEMIDE 20 MG TAB PO SCH (09:40)
[2021-08-16] MEDS: POTASSIUM CHLORIDE CRTAB 20 MEQ TABCR PO SCH (09:40)
[2021-08-16] MEDS: diphenhydrAMINE Capsule 25 MG CAP PO SCH (09:40)
[2021-08-16] MEDS: INSULIN ASPART 100 UNITS/ML 3 ML PEN SC SCH ×4 (09:42→20:53)
[2021-08-16] MEDS: INSULIN HUMAN NPH SC SCH (09:48)
[2021-08-16] MEDS: dexAMETHasone 4 MG TAB PO SCH (09:48)
[2021-08-16] MEDS: INSULIN GLARGINE 100 UNIT/ML VIAL SC SCH (09:49)
[2021-08-16 11:06] LABS: Hematocrit (blood only) 41.1 % (42-52); Hemoglobin 13.5 g/dL (14.0-18.0); Mean Corpuscular Hemoglobin 29.7 pg (25-34); Mean Corpuscular Hgb Conc 32.8 g/dL (32-36); Mean Corpuscular Volume 90.5 fL (80-100); Platelet Count 311 K/uL (130-400); RDW Coefficient of Variation 14.6 % (11.5-14.5); Red Blood Count 4.54 M/uL (4.7-6.1); White Blood Count 12.64 K/uL (4.8-10.8)
[2021-08-16 11:47] LABS: BUN Creatinine Ratio 18.3 (10-20); Calcium 8.8 mg/dl (8.5-10.1); Creatinine Clr Calc Pharmacy 99.2 ml/min; Est GFR (African American) 79.8 ml/min; Est GFR (Non-African American) 68.8 ml/min; Potassium 3.8 mmol/L (3.5-5.1)
[2021-08-16 11:58] LABS: Beta-Hydroxybutyrate 1.54 mg/dl (0.2-2.81)
[2021-08-16] MEDS ORDERED: FUROSEMIDE 20 MG TAB PO ONE (17:00)
--- NOTE | 2021-08-16 20:18 | Hospitalist Progress Note ---
Date of Service August 16, 2021 Assessment & Plan (1) Pneumonia due to 2019-nCoV: Plan: Improving very nicely over the last few days. HFNC stopped 08/13/21. now on wall-mounted high-flow NC - weaned to 8 L today and tolerating such. completed 10 days of high-dose dexamethasone 10mg daily. then completed 6mg daily x 5 days. finish wean - 4mg today, then 2mg qd x 2 days -- then d/c. s/p 5-day course of remdesivir. s/p 5-day course of zithromax. s/p IV diuresis much of the stay - now on PO lasix with stable BMP. never met criteria for tocilizumab. cont pulmonary toilet. cont lovenox 0.5mg/kg BID. cont PT, OT. (2) Acute respiratory failure with hypoxia: Plan: 2nd severe COVID-19 pneumonia finally making very nice improvement over the last few days see above in #1 cont NC O2 daytime, CPAP 11cm HS (3) Acute pulmonary edema: Plan: cont lasix 20mg po daily give additional dose of 20mg at 1700 today seems euvolemic for the most part (4) Hypomagnesemia: Plan: resolved (5) Hypokalemia: Plan: resolved (6) Diabetes mellitus type 2, uncontrolled: Plan: HbA1C 7.8% in April 2021 high requirements of insulin at home (novolog 100 units TID w/ meals, etc) pharmacy adjusting insulin regimen and appreciate their assistance (7) Morbid obesity with BMI of 40.0-44.9, adult: Plan: BMI 41-43 (8) Sleep apnea: Plan: CPAP 11cm with blended O2 compliant with such at HS (9) Hypothyroidism: Plan: TSH 1.8 in January cont synthroid (10) Hyperlipidemia: (11) DVT prophylaxis: Plan: cont lovenox 0.5mg/kg BID (12) Hyponatremia: Plan: intermittent, 2nd to lasix, etc BMP qod for stability Plan: updated pt's by phone this evening told her that we can start discussing discharge once his O2 requirement is down to about 2 L cont PT, OT both advising home with therapy d/c tele today Admission and Anticipated Discharge Date Admission Date: July 30, 2021 Subjective no issues overnight feels good NC O2 weaned to 8 L today he feels no different following the wean PUGH and fatigue are at baseline eating well tele overnight again wnl Review of Systems Review of Systems: gen - no fevers, chills CV - no cp pulm - no wheeze, no dyspnea at rest; PUGH remains but unchanged GI - no N/V/D/Abd pain Physical Exam Physical Exam: gen - morbidly obese, no distress, sitting at side of bed, pleasant/talkative - exam unchanged mouth - MMM neck - no JVD heart - RRR, s1 s2, no murmur lungs - fine rales bases (mild) - no change; very good airation abd - obese, soft, NT, ND, BS+ ext - trace edema b/l; pulses 2+ b/l psych - a/o x 3, good spirits Results & Data Results & Data ([facility]) Vital Signs (Past 12 Hours) Vital Signs Temp Pulse Resp BP Pulse Ox 08/16/21 14:52 37.4 C 109 H 20 109/68 92 08/16/21 12:21 36.6 C 85 18 121/59 L 90 Laboratory Results Laboratory Results - last 24 hr 08/15/21 08/16/21 08/16/21 21:22 07:47 11:01 WBC 12.64 H RBC 4.54 L Hgb 13.5 L Hct 41.1 L MCV 90.5 MCH 29.7 MCHC 32.8 RDW Std Deviation 48.0 H RDW Coeff of Mary 14.6 H Plt Count 311 MPV 9.0 Sodium Potassium Chloride Carbon Dioxide Anion Gap BUN Creatinine Est Cr Clr Drug Dosing Est GFR ( Amer) Est GFR (Non-Af Amer) BUN/Creatinine Ratio Glucose POC Glucose 196 H 189 H Calcium Beta-Hydroxybutyric Acd 08/16/21 08/16/21 08/16/21 11:01 12:07 17:14 WBC RBC Hgb Hct MCV MCH MCHC RDW Std Deviation RDW Coeff of Mary Plt Count MPV Sodium 135 L Potassium 3.8 Chloride 101 Carbon Dioxide 27 Anion Gap 7.0 BUN 20 H Creatinine 1.11 Est Cr Clr Drug Dosing 99.2 Est GFR ( Amer) 79.8 Est GFR (Non-Af Amer) 68.8 BUN/Creatinine Ratio 18.3 Glucose 332 H* POC Glucose 209 H 107 H Calcium 8.8 Beta-Hydroxybutyric Acd 1.54 PG Care Time/CCT Total # of Minutes Spent Total Time Spent with Patient: Total time spent is greater than 50% in coordination of care (as documented) at patient's floor/unit and/or counseling patient: Coding Level of Care Code 67483 Subseq Hosp Care Lvl 2 Diagnoses Pneumonia due to 2019-nCoV U07.1; J12.82 Acute respiratory failure with hypoxia J96.01 Acute pulmonary edema J81.0 Hypomagnesemia E83.42 Hypokalemia E87.6 Diabetes mellitus type 2, uncontrolled E11.65 Morbid obesity with BMI of 40.0-44.9, adult E66.01; Z68.41 Sleep apnea G47.30 Hypothyroidism E03.9 Hyperlipidemia E78.5 DVT prophylaxis Z29.9 Hyponatremia E87.1
[2021-08-17] MEDS: LEVOTHYROXINE SODIUM 150 MCG TABLET PO SCH (05:57)
[2021-08-17] MEDS: POTASSIUM CHLORIDE CRTAB 20 MEQ TABCR PO SCH (09:17)
[2021-08-17] MEDS: diphenhydrAMINE Capsule 25 MG CAP PO SCH (09:17)
[2021-08-17] MEDS: dexAMETHasone 1 MG TAB PO SCH (09:17)
[2021-08-17] MEDS: FUROSEMIDE 20 MG TAB PO SCH (09:17)
[2021-08-17] MEDS: INSULIN ASPART 100 UNITS/ML 3 ML PEN SC SCH ×4 (09:27→21:25)
[2021-08-17] MEDS: INSULIN GLARGINE 100 UNIT/ML VIAL SC SCH (09:28)
[2021-08-17] MEDS: INSULIN HUMAN NPH SC SCH (09:28)
[2021-08-17] MEDS: ENOXAPARIN 80 MG/0.8 ML SYR SQ SCH ×2 (12:56→23:08)
--- NOTE | 2021-08-17 14:21 | Pharmacy Report ---
Pharmacy Glycemic Short Note 2 - Date of Service August 17, 2021 - Glycemic Short BSG Results (Last 24 hours): 08/16/21 08/16/21 08/17/21 17:14 20:40 06:06 POC Glucose 107 H 193 H 134 H 08/17/21 08/17/21 08:44 12:55 POC Glucose 204 H 155 H OUTPATIENT ANTIDIABETIC REGIMEN: * Lantus 28 units AM + 33 units PM * Novolog 40-100 units TID w/ meals per scale * Semaglutide 0.5mg SQ weekly * Metformin 1000mg AM + 1500mg PM * A1c = 7.8% 05/02/21 ASSESSMENT: 08/17: * Joe received 119 units of SQ insulin yesterday (24 units Lantus, 10 units NPH, 85 units novolog) * Fasting BSG of 134 mg/dL is near goal. Lantus was increased yesterday. Continue the same for now. May require reduction after DXM is d/c'ed. * Post prandial BSGs fluctuated yesterday. Lunch BSG better today. DXM was reduced from 4 mg to 2 mg daily, therefore I decreased NPH and slightly loosened novolog. Tomorrow is last dose of DXM. 08/15: * 154 units SQ administered in last 24 hours while tolerating a diet * Dexamethasone 6mg IV Q AM has been d/c and pt will begin 4mg PO Q AM instead today. Would expect less post-prandial insulin resistance with this change * Fasting BSG 151 this AM, improved over last 2 days. This is with 42 units basal on board (22 Lantus + 20 units NPH). * Plan to cut NPH dose in half today due to steroid change * Plan to continue current Novolog doses for the 1st portion of the day today and monitor post-prandial trend. 08/14: * Patient received 143 units insulin yesterday while tolerating a diet * Fasting BSG elevated x 2 days now. Today's FBS 178. 40 units basal were administered in last 24 hrs (22 units Lantus + 18 units NPH). Will continue similar basal dose for one more day as pt had been experiencing episodes of fasting hypoglycemia on higher basal doses this admission. * Post-prandial hyperglycemia observed 2 of 3 BSGs yesterday. Prandial coverage increased w/ supper and HS BSG at goal. * Plan to increase NPH dose slightly today, and trial continue the more aggressive carb coverage started yesterday evening. 08/13: Patient received 117 units of insulin yesterday Fasting BSG elevated today, slightly increased lantus to 22 units, continued NPH with decadron Tightened novolog scael as lunch BSG also elevated. 08/12: * Patient received 160 units of insulin yesterday (40 of which were basal insulin) * Fasting BSG low again today and evening BSG elevated. Lantus was decreased, NPH was increased. Lunch BSG significantly decreased from days prior, will loosen novolog scale. * Patient continues on dexamethasone and is ordered a diet 08/11 * 126 units SQ given last night * Fasting BSG 68 this AM w/ 30 units Lantus on board, and after receiving 10 units NPH yesterday. * Post-prandial hyperglycemia again problematic. Novolog doses with meals will be increased * Will move units from Lantus to NPH to lessen risk of fasting AM hypoglycemia and to better combat post-prandial BSG rise. * Will also decrease HS Novolog dose to lessen risk of fasting AM hypoglycemia. PLAN FOR INPATIENT GLYCEMIC CONTROL: * Hold outpatient diabetes medications * Basal insulin * Continue Lantus 24 units SQ QAM * Decrease NPH to 5 units Q AM w/ PO dexamethasone * Bolus insulin * NovoLog per scale ACHS or Q6hrs while NPO * Goal Range: Low 110 mg/dL - High 140 mg/dL * Correction Factor: 12 mg/dL/unit before meals, and 25mg/dL/unit at HS (will only correct HS BSG if above 180) * Nutritional / Prandial insulin per carb ratio of 1 unit per 2.5 grams CHO consumed with meals and 1 unit per 6 grams CHO consumed at HS PLAN FOR DISCHARGE: * A1c is in goal range; no changes needed at dc * Insulin may need adjusted if patient is to dc on extended steroid taper.
--- NOTE | 2021-08-18 00:04 | Hospitalist Progress Note ---
Date of Service August 18, 2021 Assessment & Plan (1) Pneumonia due to 2019-nCoV: Plan: Improving very nicely over the last few days. HFNC stopped 08/13/21. now on wall-mounted high-flow NC - weaned to 7 L today and tolerating such. completed 10 days of high-dose dexamethasone 10mg daily. then completed 6mg daily x 5 days. finish wean - 2mg today, then 2mg tomorrow, then stop steroids completely. s/p 5-day course of remdesivir. s/p 5-day course of zithromax. s/p IV diuresis much of the stay - now on PO lasix with stable BMP. never met criteria for tocilizumab. cont pulmonary toilet. cont lovenox 0.5mg/kg BID. cont PT, OT. in light of severity of illness, poor mobility, etc - would use xarelto for DVT proph x 30 days after d/c. would also refer to pulmonary post-d/c to follow him through recovery. At risk of developing fibrosis from his illness. patient counseled we need to get his NC O2 requirements down to 2 or 3 L NC in order to d/c home. (2) Acute respiratory failure with hypoxia: Plan: 2nd severe COVID-19 pneumonia improving nicely see #1 above cont NC O2 daytime, CPAP 11cm HS (3) Acute pulmonary edema: Plan: appears euvolemic cont lasix 20mg po daily for maintenance and to keep I/O balance negative (4) Hypomagnesemia: Plan: resolved (5) Hypokalemia: Plan: resolved (6) Diabetes mellitus type 2, uncontrolled: Plan: HbA1C 7.8% in April 2021 high requirements of insulin at home (novolog 100 units TID w/ meals, etc) pharmacy providing glycemic control/recommendations BSGs acceptable (7) Morbid obesity with BMI of 40.0-44.9, adult: Plan: BMI 41-43 (8) Sleep apnea: Plan: CPAP 11cm with blended O2 compliant with such at HS (9) Hypothyroidism: Plan: TSH 1.8 in January cont synthroid (10) Hyperlipidemia: (11) DVT prophylaxis: Plan: cont lovenox 0.5mg/kg BID after d/c would use xarelto 10mg daily x 30 days for VTE prophylaxis at home (12) Hyponatremia: Plan: intermittent, 2nd to lasix, etc BMP qod for stability most recent Na was normal Plan: updated pt's by phone several times this week including 08/16/21 told her that we can start discussing discharge once his O2 requirement is down to about 2 to 3 L via NC cont PT, OT both advising home PT/OT suspect we are 2-4 days away from d/c depending on how quickly O2 can be weaned Admission and Anticipated Discharge Date Admission Date: July 30, 2021 Subjective patient transferred to [address] [place] [address] yesterday he had a good night, restful feeling good - "really hoping to go home by Wednesday" he was on 7 L NC O2 during my visit he reports no changes overall in how he feels ambulated in hallways today and felt well mild PUGH eating well no new complaints/issues Review of Systems Review of Systems: gen - no fevers, chills, weakness; minimal fatigue when he walks CV - no chest pain pulm - no change in mild PUGH; no dyspnea at rest GI - no pain/N/V/D/constipation Physical Exam Physical Exam: gen - morbidly obese, no distress, sitting at side of bed, pleasant/talkative mouth - MMM neck - no JVD heart - RRR, s1 s2, no murmur lungs - fine rales bases (mild) - no change; very good airation; no wheezing; no increased wob abd - obese, soft, NT, ND, BS+ ext - trace edema b/l; pulses 2+ b/l psych - a/o x 3, good spirits Results & Data Results & Data ([facility]) Vital Signs (Past 12 Hours) Vital Signs Temp Pulse Resp BP Pulse Ox 08/17/21 22:43 36.7 C 101 H 18 120/74 95 08/17/21 15:09 37.3 C 93 H 20 110/69 93 Laboratory Results Laboratory Results - last 24 hr 08/17/21 08/17/21 08/17/21 06:06 08:44 12:55 POC Glucose 134 H 204 H 155 H 08/17/21 08/17/21 17:39 21:24 POC Glucose 146 H 188 H PG Care Time/CCT Total # of Minutes Spent Total Time Spent with Patient: Total time spent is greater than 50% in coordination of care (as documented) at patient's floor/unit and/or counseling patient: Coding Level of Care Code 08970 Subseq Hosp Care Lvl 2 Diagnoses Pneumonia due to 2019-nCoV U07.1; J12.82 Acute respiratory failure with hypoxia J96.01 Acute pulmonary edema J81.0 Hypomagnesemia E83.42 Hypokalemia E87.6 Diabetes mellitus type 2, uncontrolled E11.65 Morbid obesity with BMI of 40.0-44.9, adult E66.01; Z68.41 Sleep apnea G47.30 Hypothyroidism E03.9 Hyperlipidemia E78.5 DVT prophylaxis Z29.9 Hyponatremia E87.1
[2021-08-18] MEDS: LEVOTHYROXINE SODIUM 150 MCG TABLET PO SCH (06:32)
[2021-08-18 08:25] LABS: BUN Creatinine Ratio 24.3 (10-20); Calcium 9.4 mg/dl (8.5-10.1); Creatinine Clr Calc Pharmacy 127.1 ml/min; Est GFR (African American) 104.7 ml/min; Est GFR (Non-African American) 90.4 ml/min; Potassium 3.7 mmol/L (3.5-5.1)
[2021-08-18] MEDS: FUROSEMIDE 20 MG TAB PO SCH (09:00)
[2021-08-18] MEDS: dexAMETHasone 1 MG TAB PO SCH (09:01)
[2021-08-18] MEDS: diphenhydrAMINE Capsule 25 MG CAP PO SCH (09:05)
[2021-08-18] MEDS: POTASSIUM CHLORIDE CRTAB 20 MEQ TABCR PO SCH (09:05)
[2021-08-18] MEDS: INSULIN GLARGINE 100 UNIT/ML VIAL SC SCH (09:09)
[2021-08-18] MEDS: INSULIN HUMAN NPH SC SCH (09:10)
[2021-08-18] MEDS: INSULIN ASPART 100 UNITS/ML 3 ML PEN SC SCH ×4 (09:11→21:48)
--- NOTE | 2021-08-18 12:47 | Hospitalist Progress Note ---
Date of Service August 18, 2021 Assessment & Plan (1) Pneumonia due to 2019-nCoV: Plan: Improving very nicely over the past week HFNC stopped 08/13/21. now on wall-mounted high-flow NC - weaned to 5-6 L today and tolerating such. try for 2 step tomorrow as he is ambulating, talking in full sentences on the wall high flow he is really anxious to go home, he feels great and feels like he could get stronger at home completed 10 days of high-dose dexamethasone 10mg daily. then completed 6mg daily x 5 days. finish wean - 2mg today and now stop completely s/p 5-day course of remdesivir. s/p 5-day course of zithromax. s/p IV diuresis much of the stay - now on PO lasix with stable BMP. never met criteria for tocilizumab. cont pulmonary toilet. cont lovenox 0.5mg/kg BID. cont PT, OT. in light of severity of illness, poor mobility, etc - would use xarelto for DVT proph x 30 days after d/c. would also refer to pulmonary post-d/c to follow him through recovery. At risk of developing fibrosis from his illness. again, try for discharge tomorrow (2) Acute respiratory failure with hypoxia: Plan: 2nd severe COVID-19 pneumonia improving a lot see #1 above cont NC 5L during the day, CPAP 11cm HS (3) Acute pulmonary edema: Plan: appears euvolemic cont lasix 20mg po daily for maintenance and to keep I/O balance negative potassium with the Lasix every morning (4) Hypomagnesemia: Plan: resolved (5) Hypokalemia: Plan: resolved (6) Diabetes mellitus type 2, uncontrolled: Plan: HbA1C 7.8% in April 2021 high requirements of insulin at home (novolog 100 units TID w/ meals, etc) pharmacy providing glycemic control/recommendations BSGs acceptable the past 24 hours (7) Morbid obesity with BMI of 40.0-44.9, adult: Plan: BMI 41-43 (8) Sleep apnea: Plan: CPAP 11cm with blended O2 compliant with such at HS (9) Hypothyroidism: Plan: TSH 1.8 in January cont synthroid (10) Hyperlipidemia: (11) DVT prophylaxis: Plan: cont lovenox 0.5mg/kg BID after d/c would use xarelto 10mg daily x 30 days for VTE prophylaxis at home (12) Hyponatremia: Plan: intermittent, 2nd to lasix, etc Na is 139 today Plan: cont PT, OT both advising home PT/OT might be ready for discharge tomorrow Admission and Anticipated Discharge Date Admission Date: July 30, 2021 Subjective patient is in really good spirits, he feels so much better than last week he is down to 6L and breathing comfortably he is eating really well, a lot actually, drinking well had two BM today, makes him feel better no fever, minimal coughing he is really hoping to go home tomorrow, I discussed that we can get the 2 step tomorrow AM and try to get home he has his , step son and home nursing for support Review of Systems Review of Systems: All systems reviewed & are unremarkable except as noted in Subjective Physical Exam Constitutional: well developed, well nourished, + morbidly obese and comfortable; no acute distress Neck: trachea midline and + thick neck Respiratory: normal respiratory effort and + cough; no respiratory distress, no labored breathing and not tachypneic Auscultation: lungs clear to auscultation bilaterally; no crackles and no wheezes Cardiovascular: Rate/Rhythm: regular rate and regular rhythm Heart Sounds: normal S1 and normal S2; no murmur Extremities: normal capillary refill; no edema Gastrointestinal (Abdomen): normal bowel sounds, soft, nontender, no hepatosplenomegaly Musculoskeletal: no cyanosis or clubbing, extremities motor strength 5/5 Skin: no rashes, warm and dry Neurologic: normal touch/pain/proprioception, CN's II-XI intact bilaterally, moves all extremities and awake; no focal motor deficits Psychiatric: A+Ox3, euthymic affect Results & Data Results & Data ([facility]) Vital Signs (Past 12 Hours) Vital Signs Temp Pulse Resp BP Pulse Ox 08/18/21 08:46 36.4 C L 67 16 104/65 93 08/18/21 04:21 93 08/18/21 04:20 87 L Laboratory Results Laboratory Results - last 24 hr 08/17/21 08/17/21 08/17/21 12:55 17:39 21:24 Sodium Potassium Chloride Carbon Dioxide Anion Gap BUN Creatinine Est Cr Clr Drug Dosing Est GFR ( Amer) Est GFR (Non-Af Amer) BUN/Creatinine Ratio Glucose POC Glucose 155 H 146 H 188 H Calcium 08/18/21 08/18/21 08/18/21 07:20 08:10 12:36 Sodium 139 Potassium 3.7 Chloride 101 Carbon Dioxide 33 H Anion Gap 5.0 BUN 21 H Creatinine 0.86 Est Cr Clr Drug Dosing 127.1 Est GFR ( Amer) 104.7 Est GFR (Non-Af Amer) 90.4 BUN/Creatinine Ratio 24.3 H Glucose 132 H POC Glucose 175 H 185 H Calcium 9.4 Medications Administered Current Inpatient Medications Acetaminophen (Acetaminophen 325 Mg Tab) 650 mg PO Q4H PRN PRN Reason: Pain or Fever Stop: 08/29/21 23:19 Last Admin: 07/31/21 01:46 Dose: 650 mg Documented by: Albuterol (Albuterol 0.083% Nebu Soln 3 Ml Vial) 2.5 mg NEB Q6R PRN PRN Reason: Shortness Of Breath Or Wheezing Stop: 09/01/21 18:59 Dextrose (Dextrose 50% 50 Ml Syringe) 25 - 50 ml IV UD PRN; Protocol PRN Reason: Hypoglycemia Protocol Stop: 08/29/21 23:19 Diphenhydramine HCl (Diphenhydramine Capsule 25 Mg Cap) 25 mg PO DAILY VIDYA Stop: 08/30/21 08:59 Last Admin: 08/18/21 09:05 Dose: 25 mg Documented by: Enoxaparin Sodium (Enoxaparin 80 Mg/0.8 Ml Syr) 70 mg SQ Q12H VIDYA Stop: 08/31/21 11:59 Last Admin: 08/17/21 23:08 Dose: 70 mg Documented by: Fluticasone Propionate (Fluticasone Propionate Na Spr 16 Gm Btl) 1 sprays NA DAILY PRN PRN Reason: Nasal Congestion Stop: 08/30/21 08:59 Furosemide (Furosemide 20 Mg Tab) 20 mg PO QAM VIDYA Stop: 09/11/21 08:59 Last Admin: 08/18/21 09:00 Dose: 20 mg Documented by: Glucagon (Glucagon For Inj 1 Mg Vial) 1 mg SQ UD PRN; Protocol PRN Reason: Hypoglycemia Protocol Stop: 08/29/21 23:19 Glucose (Glucose 10 Tabs/Tube) 4 - 8 tabs PO UD PRN; Protocol PRN Reason: Hypoglycemia Protocol Stop: 08/29/21 23:19 Glucose (Glucose 40% Gel 15 Gm Tube) 15 - 30 gm PO UD PRN; Protocol PRN Reason: Hypoglycemia Protocol Stop: 08/29/21 23:19 Insulin Aspart (Insulin Aspart 100 Units/Ml 3 Ml Pen) 0 units SC AC [facility] Stop: 09/07/21 16:29 Last Admin: 08/18/21 09:11 Dose: 30 units Documented by: Insulin Aspart (Insulin Aspart 100 Units/Ml 3 Ml Pen) 0 units SC HS [facility] Stop: 09/07/21 20:59 Last Admin: 08/17/21 21:25 Dose: 1 units Documented by: Insulin Glargine (Insulin Glargine 100 Unit/Ml Vial) 24 units SC QAM [facility] Stop: 09/15/21 09:29 Last Admin: 08/18/21 09:09 Dose: 24 units Documented by: Levothyroxine Sodium (Levothyroxine Sodium 150 Mcg Tablet) [facility] Stop: 08/30/21 06:29 Last Admin: 08/18/21 06:32 Dose: 150 mcg Documented by: Miscellaneous (Carbohydrates For Hypoglycemia ) 15 - 30 gm PO UD PRN PRN Reason: Hypoglycemia Protocol Stop: 08/29/21 23:19 Last Admin: 08/11/21 08:03 Dose: 15 gm Documented by: Miscellaneous Information (Pharmacy Glycemic Mgmt Consult) 1 ea N/A UD PRN PRN Reason: Consult Stop: 09/07/21 10:54 Mupirocin (Mupirocin 2% Oint 22 Gm Tube) 1 appln EXT BID PRN PRN Reason: NASAL DRYNESS Stop: 08/30/21 01:41 Ondansetron HCl (Ondansetron Inj 2 Mg/Ml 2 Ml Vial) 4 mg IV Q6H PRN PRN Reason: Nausea Stop: 08/29/21 23:19 Potassium Chloride (Potassium Chloride Crtab 20 Meq Tabcr) 20 meq PO DAILY [facility] Stop: 09/11/21 08:59 Last Admin: 08/18/21 09:05 Dose: 20 meq Documented by: Sodium Chloride (Sodium Chloride 0.65% Na Soln 45 Ml (Yell)) 2 sprays NA DAILY PRN PRN Reason: NASAL DRYNESS Stop: 08/29/21 23:19 PG Care Time/CCT Total # of Minutes Spent Total Time Spent with Patient: Total time spent is greater than 50% in coordination of care (as documented) at patient's floor/unit and/or counseling patient: Coding Level of Care Code 14548 Subseq Hosp Care Lvl 3 Diagnoses Pneumonia due to 2019-nCoV U07.1; J12.82 Acute respiratory failure with hypoxia J96.01 Acute pulmonary edema J81.0 Hypomagnesemia E83.42 Hypokalemia E87.6 Diabetes mellitus type 2, uncontrolled E11.65 Morbid obesity with BMI of 40.0-44.9, adult E66.01; Z68.41 Sleep apnea G47.30 Hypothyroidism E03.9 Hyperlipidemia E78.5 DVT prophylaxis Z29.9 Hyponatremia E87.1
[2021-08-18] MEDS: ENOXAPARIN 80 MG/0.8 ML SYR SQ SCH ×2 (13:35→23:14)
[2021-08-19] MEDS: LEVOTHYROXINE SODIUM 150 MCG TABLET PO SCH (05:56)
[2021-08-19] MEDS: ENOXAPARIN 80 MG/0.8 ML SYR SQ SCH ×2 (08:19→19:57)
[2021-08-19] MEDS: FUROSEMIDE 40 MG TAB PO SCH (08:23)
[2021-08-19] MEDS: POTASSIUM CHLORIDE CRTAB 20 MEQ TABCR PO SCH (08:23)
[2021-08-19] MEDS: diphenhydrAMINE Capsule 25 MG CAP PO SCH (08:23)
[2021-08-19] MEDS ORDERED: INSULIN GLARGINE 100 UNIT/ML VIAL SC SCH (09:00)
[2021-08-19] MEDS: INSULIN ASPART 100 UNITS/ML 3 ML PEN SC SCH ×4 (09:17→21:06)
--- NOTE | 2021-08-19 11:20 | Pharmacy Report ---
Pharmacy Glycemic Short Note 2 - Date of Service August 19, 2021 - Glycemic Short BSG Results (Last 24 hours): 08/18/21 08/18/21 08/18/21 12:36 17:39 21:30 POC Glucose 185 H 147 H 112 H 08/19/21 08:29 POC Glucose 119 H OUTPATIENT ANTIDIABETIC REGIMEN: * Lantus 28 units AM + 33 units PM * Novolog 40-100 units TID w/ meals per scale * Semaglutide 0.5mg SQ weekly * Metformin 1000mg AM + 1500mg PM * A1c = 7.8% 05/02/21 ASSESSMENT: 08/19: * Patient received total of 118 units of insulin yesterday, of which 24 units were Lantus, 5 units NPH * Fasting BSG 119 mg/dL - no further steroids ordered at this time, plan to scale back slightly on basal this AM * With no further steroids, plan to also loosen CF/CR for this AM - will trial stress of 3 dosing for novolog for now, may need to tighten further 08/17: * Joe received 119 units of SQ insulin yesterday (24 units Lantus, 10 units NPH, 85 units novolog) * Fasting BSG of 134 mg/dL is near goal. Lantus was increased yesterday. Continue the same for now. May require reduction after DXM is d/c'ed. * Post prandial BSGs fluctuated yesterday. Lunch BSG better today. DXM was reduced from 4 mg to 2 mg daily, therefore I decreased NPH and slightly lo osened novolog. Tomorrow is last dose of DXM. 08/15: * 154 units SQ administered in last 24 hours while tolerating a diet * Dexamethasone 6mg IV Q AM has been d/c and pt will begin 4mg PO Q AM instead today. Would expect less post-prandial insulin resistance with this change * Fasting BSG 151 this AM, improved over last 2 days. This is with 42 units basal on board (22 Lantus + 20 units NPH). * Plan to cut NPH dose in half today due to steroid change * Plan to continue current Novolog doses for the 1st portion of the day today and monitor post-prandial trend. 08/14: * Patient received 143 units insulin yesterday while tolerating a diet * Fasting BSG elevated x 2 days now. Today's FBS 178. 40 units basal were administered in last 24 hrs (22 units Lantus + 18 units NPH). Will continue similar basal dose for one more day as pt had been experiencing episodes of fasting hypoglycemia on higher basal doses this admission. * Post-prandial hyperglycemia observed 2 of 3 BSGs yesterday. Prandial coverage increased w/ supper and HS BSG at goal. * Plan to increase NPH dose slightly today, and trial continue the more aggressive carb coverage started yesterday evening. 08/13: Patient received 117 units of insulin yesterday Fasting BSG elevated today, slightly increased lantus to 22 units, continued NPH with decadron Tightened novolog scael as lunch BSG also elevated. 08/12: * Patient received 160 units of insulin yesterday (40 of which were basal insulin) * Fasting BSG low again today and evening BSG elevated. Lantus was decreased, NPH was increased. Lunch BSG significantly decreased from days prior, will loosen novolog scale. * Patient continues on dexamethasone and is ordered a diet 08/11 * 126 units SQ given last night * Fasting BSG 68 this AM w/ 30 units Lantus on board, and after receiving 10 units NPH yesterday. * Post-prandial hyperglycemia again problematic. Novolog doses with meals will be increased * Will move units from Lantus to NPH to lessen risk of fasting AM hypoglycemia and to better combat post-prandial BSG rise. * Will also decrease HS Novolog dose to lessen risk of fasting AM hypoglycemia. PLAN FOR INPATIENT GLYCEMIC CONTROL: * Hold outpatient diabetes medications * Basal insulin * Decrease to Lantus 20 units daily * Bolus insulin * NovoLog per scale ACHS or Q6hrs while NPO * Goal Range: Low 110 mg/dL - High 140 mg/dL * Correction Factor: 15 mg/dL/unit before meals, and 25mg/dL/unit at HS (will only correct HS BSG if above 180) * Nutritional / Prandial insulin per carb ratio of 1 unit per 5 grams CHO consumed with meals and 1 unit per 6 grams CHO consumed at HS PLAN FOR DISCHARGE: * A1c is 7.5% goal < 7% reasonable * Patient on large amounts of insulin outpatient. Insulin needs during hospital stay much different then outpatient regimen. However, reasonable to continue home regimen as long as patient is not reporting frequent hypoglycemia outpatient
--- NOTE | 2021-08-19 12:00 | Hospitalist Progress Note ---
Date of Service August 19, 2021 Assessment & Plan (1) Pneumonia due to 2019-nCoV: Plan: Improving very nicely over the past week HFNC stopped 08/13/21. now on wall-mounted high-flow NC - weaned to 6 L today and tolerating such. still cannot get lower than 6L, told RN to adjust target to 88% will aggressively diurese today, Lasix 40mg PO BID and watch for response if he is at 4L tomorrow will get two step because going home will help his mood more than anything else completed 10 days of high-dose dexamethasone 10mg daily. then completed 6mg daily x 5 days. finish wean - 2mg today and now stop completely s/p 5-day course of remdesivir. s/p 5-day course of zithromax. s/p IV diuresis much of the stay - now on PO lasix with stable BMP. never met criteria for tocilizumab. cont pulmonary toilet. cont lovenox 0.5mg/kg BID. cont PT, OT. in light of severity of illness, poor mobility, etc - would use xarelto for DVT proph x 30 days after d/c. would also refer to pulmonary post-d/c to follow him through recovery. At risk of developing fibrosis from his illness. again, try for discharge tomorrow can be removed from negative pressure isolation, confirmed with Yodit Tobin (2) Acute respiratory failure with hypoxia: Plan: 2nd severe COVID-19 pneumonia improving a lot see #1 above cont NC 6L during the day, CPAP 11cm HS diuresis with Lasix 40mg BID today try to get down to 4L and get two step tomorrow (3) Acute pulmonary edema: Plan: appears more volume overloaded today increase Lasix to 40mg BID today (4) Hypomagnesemia: Plan: resolved (5) Hypokalemia: Plan: resolved (6) Diabetes mellitus type 2, uncontrolled: Plan: HbA1C 7.8% in April 2021 high requirements of insulin at home (novolog 100 units TID w/ meals, etc) pharmacy providing glycemic control/recommendations BSGs acceptable the past 24 hours (7) Morbid obesity with BMI of 40.0-44.9, adult: Plan: BMI 41-43 (8) Sleep apnea: Plan: CPAP 11cm with blended O2 compliant with such at HS (9) Hypothyroidism: Plan: TSH 1.8 in January cont synthroid (10) Hyperlipidemia: (11) DVT prophylaxis: Plan: cont lovenox 0.5mg/kg BID after d/c would use xarelto 10mg daily x 30 days for VTE prophylaxis at home (12) Hyponatremia: Plan: intermittent, 2nd to lasix, etc Na now normal Plan: cont PT, OT both advising home PT/OT might be ready for discharge tomorrow Admission and Anticipated Discharge Date Admission Date: July 30, 2021 Subjective patient is depressed this morning, he was really hoping to go home but oxygen levels still 6-8L right now he feels like he is so close to going home, just cannot get over the wall, keeps "hitting the wall" he says the nights are so long, he cannot sleep, tries to keep busy with listening to his phone, watching TV he misses his family, misses his own bed and his home he is making a lot of urine this morning with Lasix 40mg PO, will try another dose this afternoon to get him over the hump encouraged him to be strong, very very close to getting a two step and going home he is eating well, sugars stable Review of Systems Review of Systems: All systems reviewed & are unremarkable except as noted in Subjective Respiratory: + dyspnea on exertion; no cough and no dyspnea Cardiovascular: + edema; no chest pain Gastrointestinal: no abdominal pain, no nausea, no vomiting, no constipation and no diarrhea/loose stools Psychiatric: + depression, + hopelessness and + abnormal sleep pattern (insomnia) Physical Exam Constitutional: well developed, well nourished, + morbidly obese and comfortable; no acute distress Neck: trachea midline and + thick neck Respiratory: normal respiratory effort and + cough; no respiratory distress, no labored breathing and not tachypneic Auscultation: lungs clear to auscultation bilaterally; no crackles and no wheezes Cardiovascular: Rate/Rhythm: regular rate and regular rhythm Heart Sounds: normal S1 and normal S2; no murmur Extremities: normal capillary refill and + edema (1+ pitting bilaterally) Gastrointestinal (Abdomen): normal bowel sounds, soft, nontender, no hepatosplenomegaly Musculoskeletal: no cyanosis or clubbing, extremities motor strength 5/5 Skin: no rashes, warm and dry Neurologic: normal touch/pain/proprioception, CN's II-XI intact bilaterally, moves all extremities and awake; no focal motor deficits Psychiatric: Orientation: alert and oriented x 3 Eye Contact: good eye contact Affect: + flat affect Mood: + depressed mood Results & Data Results & Data ([facility]) Vital Signs (Past 12 Hours) Vital Signs Temp Pulse Pulse Resp BP Pulse Ox 08/19/21 07:57 36.8 C 97 H 106/73 92 08/19/21 03:14 61 26 H 95 08/19/21 01:05 103 H 26 H 95 Laboratory Results Laboratory Results - last 24 hr 08/18/21 08/18/21 08/18/21 12:36 17:39 21:30 POC Glucose 185 H 147 H 112 H 08/19/21 08:29 POC Glucose 119 H Medications Administered Current Inpatient Medications Acetaminophen (Acetaminophen 325 Mg Tab) 650 mg PO Q4H PRN PRN Reason: Pain or Fever Stop: 08/29/21 23:19 Last Admin: 07/31/21 01:46 Dose: 650 mg Documented by: Albuterol (Albuterol 0.083% Nebu Soln 3 Ml Vial) 2.5 mg NEB Q6R PRN PRN Reason: Shortness Of Breath Or Wheezing Stop: 09/01/21 18:59 Dextrose (Dextrose 50% 50 Ml Syringe) 25 - 50 ml IV UD PRN; Protocol PRN Reason: Hypoglycemia Protocol Stop: 08/29/21 23:19 Diphenhydramine HCl (Diphenhydramine Capsule 25 Mg Cap) 25 mg PO DAILY VIDYA Stop: 08/30/21 08:59 Last Admin: 08/19/21 08:23 Dose: 25 mg Documented by: Enoxaparin Sodium (Enoxaparin 80 Mg/0.8 Ml Syr) 70 mg SQ Q12H VIDYA Stop: 08/31/21 11:59 Last Admin: 08/19/21 08:19 Dose: 70 mg Documented by: Fluticasone Propionate (Fluticasone Propionate Na Spr 16 Gm Btl) 1 sprays NA DAILY PRN PRN Reason: Nasal Congestion Stop: 08/30/21 08:59 Furosemide (Furosemide 40 Mg Tab) 40 mg PO QAM VIDYA Stop: 09/18/21 08:59 Last Admin: 08/19/21 08:23 Dose: 40 mg Documented by: Furosemide (Furosemide 40 Mg Tab) 40 mg PO NOW ONE Stop: 08/19/21 14:01 Glucagon (Glucagon For Inj 1 Mg Vial) 1 mg SQ UD PRN; Protocol PRN Reason: Hypoglycemia Protocol Stop: 08/29/21 23:19 Glucose (Glucose 10 Tabs/Tube) 4 - 8 tabs PO UD PRN; Protocol PRN Reason: Hypoglycemia Protocol Stop: 08/29/21 23:19 Glucose (Glucose 40% Gel 15 Gm Tube) 15 - 30 gm PO UD PRN; Protocol PRN Reason: Hypoglycemia Protocol Stop: 08/29/21 23:19 Insulin Aspart (Insulin Aspart 100 Units/Ml 3 Ml Pen) 0 units SC AC [facility] Stop: 09/07/21 16:29 Last Admin: 08/19/21 09:17 Dose: 13 units Documented by: Insulin Aspart (Insulin Aspart 100 Units/Ml 3 Ml Pen) 0 units SC HS [facility] Stop: 09/07/21 20:59 Last Admin: 08/18/21 21:48 Dose: Not Given Documented by: Insulin Glargine (Insulin Glargine 100 Unit/Ml Vial) 20 units SC QAM [facility] Stop: 09/18/21 08:59 Last Admin: 08/19/21 09:18 Dose: 20 units Documented by: Levothyroxine Sodium (Levothyroxine Sodium 150 Mcg Tablet) 150 mcg PO DAILYBB [facility] Stop: 08/30/21 06:29 Last Admin: 08/19/21 05:56 Dose: 150 mcg Documented by: Miscellaneous (Carbohydrates For Hypoglycemia ) 15 - 30 gm PO UD PRN PRN Reason: Hypoglycemia Protocol Stop: 08/29/21 23:19 Last Admin: 08/11/21 08:03 Dose: 15 gm Documented by: Miscellaneous Information (Pharmacy Glycemic Mgmt Consult) 1 ea N/A UD PRN PRN Reason: Consult Stop: 09/07/21 10:54 Mupirocin (Mupirocin 2% Oint 22 Gm Tube) 1 appln EXT BID PRN PRN Reason: NASAL DRYNESS Stop: 08/30/21 01:41 Ondansetron HCl (Ondansetron Inj 2 Mg/Ml 2 Ml Vial) 4 mg IV Q6H PRN PRN Reason: Nausea Stop: 08/29/21 23:19 Potassium Chloride (Potassium Chloride Crtab 20 Meq Tabcr) 20 meq PO DAILY VIDYA Stop: 09/11/21 08:59 Last Admin: 08/19/21 08:23 Dose: 20 meq Documented by: Sodium Chloride (Sodium Chloride 0.65% Na Soln 45 Ml ([facility])) 2 sprays NA DAILY PRN PRN Reason: NASAL DRYNESS Stop: 08/29/21 23:19 PG Care Time/CCT Total # of Minutes Spent Total Time Spent: 32 Total Time Spent with Patient: Total time spent is greater than 50% in coordination of care (as documented) at patient's floor/unit and/or counseling patient: Coding Level of Care Code 74200 Subseq Hosp Care Lvl 3 Diagnoses Pneumonia due to 2019-nCoV U07.1; J12.82 Acute respiratory failure with hypoxia J96.01 Acute pulmonary edema J81.0 Hypomagnesemia E83.42 Hypokalemia E87.6 Diabetes mellitus type 2, uncontrolled E11.65 Morbid obesity with BMI of 40.0-44.9, adult E66.01; Z68.41 Sleep apnea G47.30 Hypothyroidism E03.9 Hyperlipidemia E78.5 DVT prophylaxis Z29.9 Hyponatremia E87.1
[2021-08-19] MEDS ORDERED: INSULIN GLARGINE 100 UNIT/ML VIAL SC ONE (12:45)
[2021-08-19] MEDS ORDERED: FUROSEMIDE 40 MG TAB PO ONE (14:00)
[2021-08-20] MEDS: LEVOTHYROXINE SODIUM 150 MCG TABLET PO SCH (06:04)
[2021-08-20 07:32] LABS: BUN Creatinine Ratio 14.2 (10-20); Calcium 8.8 mg/dl (8.5-10.1); Creatinine Clr Calc Pharmacy 110.4 ml/min; Est GFR (African American) 91.6 ml/min; Potassium 3.3 mmol/L (3.5-5.1)
[2021-08-20 07:43] VITALS: BP 110/68; TEMP 99.5
[2021-08-20] MEDS ORDERED: INSULIN GLARGINE 100 UNIT/ML VIAL SC SCH (09:00)
[2021-08-20 09:48] VITALS: PULSE 109; O2SAT 81
[2021-08-20] MEDS: INSULIN ASPART 100 UNITS/ML 3 ML PEN SC SCH ×2 (10:25→13:38)
[2021-08-20] MEDS: diphenhydrAMINE Capsule 25 MG CAP PO SCH (10:26)
[2021-08-20] MEDS: FUROSEMIDE 40 MG TAB PO SCH (10:26)
[2021-08-20] MEDS: ENOXAPARIN 80 MG/0.8 ML SYR SQ SCH (10:27)
[2021-08-20] MEDS: POTASSIUM CHLORIDE CRTAB 20 MEQ TABCR PO SCH (10:27)
--- NOTE | 2021-08-20 13:03 | Discharge Summary ---
Date of Service August 20, 2021 Admission HPI Per Admitting Provider 66 YOM with past medical history of: Obesity, DMII (on insulin), HTN, HLD, PADMINI. Patient comes in to the EMD tonight for increased dyspnea and cough. The patient is unsure of when he started feeling ill, as these symptoms have been ongoing for the past few months, but he feels that for the past 2 weeks it has gotten much worse. 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 He was able to say that he lost his sense of taste and smell around 10 days ago. The patient is hypoxic in the EMD and currently on HFNC at 60L and 35%. In the EMD he had routine labs drawn, and CTA of the chest performed. There is no large pulmonary embolism noted, but degraded exam secondary to respiratory artifact. Patient was given Decadron in the EMD, he is also noted to be hypokalemic, hypomagnesia, and hypocalcemic via ionized. Will replete his electrolytes as his appetite has been poor and oral intake has been low. He does get short of breath with movement in bed. Will admit patient to PCU, COVID precautions, continue Decadron, glucose control, will place Sarabia catheter secondary to his hypoxia and dyspnea. He is a not vaccinated and his COVID test on admission is POSITIVE. Principal Diagnosis COVID 19 pneumonia Acute hypoxic respiratory failure Discharge Exam Constitutional well developed, well nourished, + morbidly obese and comfortable; no acute distress Neck trachea midline and + thick neck Respiratory normal respiratory effort and + cough; no respiratory distress, no labored breathing and not tachypneic Auscultation: lungs clear to auscultation bilaterally; no crackles and no wheezes Cardiovascular Rate/Rhythm: regular rate and regular rhythm Heart Sounds: normal S1 and normal S2; no murmur Extremities: normal capillary refill and + edema (1+ pitting bilaterally) Gastrointestinal (Abdomen) normal bowel sounds, soft, nontender, no hepatosplenomegaly Musculoskeletal no cyanosis or clubbing, extremities motor strength 5/5 Skin no rashes, warm and dry Neurologic normal touch/pain/proprioception, CN's II-XI intact bilaterally, moves all extremities and awake; no focal motor deficits Psychiatric Orientation: alert and oriented x 3 Eye Contact: good eye contact Affect: euthymic affect Discharge Data Allergies Allergy/AdvReac Type Severity Reaction Status Date / Time No Known Allergies Allergy Verified 07/30/21 18:44 Consultations 07/30/21 20:11 ED Decision to Admit Stat Ordered Studies 07/30/21 17:28 CT angio chest PE protocol Stat Hospital Course (1) Pneumonia due to 2019-nCoV: Improving very nicely over the past week HFNC stopped 08/13/21. now on wall-mounted high-flow NC - weaned to 6 L today and tolerating such. still cannot get lower than 6L, told RN to adjust target to 88% will aggressively diurese today, Lasix 40mg PO BID and watch for response if he is at 4L tomorrow will get two step because going home will help his mood more than anything else completed 10 days of high-dose dexamethasone 10mg daily. then completed 6mg daily x 5 days. finish wean - 2mg today and now stop completely s/p 5-day course of remdesivir. s/p 5-day course of zithromax. s/p IV diuresis much of the stay - now on PO lasix with stable BMP. never met criteria for tocilizumab. cont pulmonary toilet. cont lovenox 0.5mg/kg BID. cont PT, OT. in light of severity of illness, poor mobility, etc - would use xarelto for DVT proph x 35 days after d/c. would also refer to pulmonary post-d/c to follow him through recovery. At risk of developing fibrosis from his illness. two step 08/20... he did well with 4L at rest and 6L on exertion arranged for home oxygen try to titrate oxygen as tolerated, suspect he might need 2L chronically [facility] (2) Acute respiratory failure with hypoxia: 2nd severe COVID-19 pneumonia improving a lot see #1 above two step: 4L at rest and 6L on exertion would use 4L with CPAP 11mmHg diuresis with Lasix 40mg daily, continue on discharge (3) Acute pulmonary edema: he is volume overloaded but lungs clear continue Lasix 40mg daily (4) Hypomagnesemia: resolved (5) Hypokalemia: resolved (6) Diabetes mellitus type 2, uncontrolled: HbA1C 7.8% in April 2021 high requirements of insulin at home (novolog 100 units TID w/ meals, etc) on discharge, will resume home regimen with Metformin lower Lantus to 25 units continue Novolog 100 units with meals monitor sugars closely, do not anticipate any issues as he is off steroids (7) Morbid obesity with BMI of 40.0-44.9, adult: BMI 41-43 (8) Sleep apnea: CPAP 11cm with blended O2 compliant with such at HS (9) Hypothyroidism: TSH 1.8 in January cont synthroid (10) Hyperlipidemia: (11) DVT prophylaxis: cont lovenox 0.5mg/kg BID after d/c would use xarelto 10mg daily x 30 days for VTE prophylaxis at home (12) Hyponatremia: intermittent, 2nd to lasix, etc Na now normal (13) HTN (hypertension): please note, Losartan and HCTZ held during admission BP is stable utilizing lasix 40mg daily for volume control, has edema in legs follow up BP in the office, could resume Losartan if needed cont PT, OT both advising home PT/OT, this is arranged as well as home nursing discharge to home with oxygen PCP and pulmonary follow up Home Health Attestation I certify that this patient is under my care and that I, or a physicians senior assistant manager working with me, had a face to-face encounter that meets the home health [id number] encounter requirements with this patient. The encounter with the patient was in whole, or in part, for the following medical condition, which is the primary reason for home health care (list medical condition): I certify that, based on my findings, the following services are medically necessary home health services: My clinical findings support the need for the above services because: PT Assessment for Endurance / Balance / Strength Skilled Nsg Assessment Further, I certify that my clinical findings support that this patient is sage ebound (i.e. absences from home require considerable and taxing effort and are for medical reasons or zoroastrianism services or infrequently or of short duration when for other reasons) because: Certification for Home Health Services: Based on the above findings, I certify that this patient is confined to the home and needs intermittent alf care, physical therapy and/or speech therapy or continues to need occupational therapy. The patient is under my care, and I have initiated the establishment of the plan of care. This patient will be followed by a physician who will periodically review the plan of care. Total Time Total Time Spent Total Time Spent (In Minutes): 36 Total Time Includes: Examination of the Patient, Discharge Planning, Medication Reconciliation and Other (discussion with his ) Discharge Plan Discharge Items Patient Disposition: Home - Home Health Services Reason For Visit: COVID PNEUMONIA Discharge Diagnosis: COVID pneumonia Acute hypoxic respiratory failure Condition on Discharge: Good Goals: slowly wean off oxygen, might need termite renewal inspector improve strength, conditioning Activity: Resume your previous activity Exercise/Sports: Gradually increase as tolerated Driving/Machine Use: no driving until cleared by PCP Weightbearing: Full weightbearing Non-emergency contact: Primary Care Provider Call non-emergency contact if: you have any medication questions and your symptoms worsen Follow-up/Referrals: Kennedy De La Garza, CONTACT CENTER AGENT-C [Primary Care Provider] - ([facility] SPOKE TO [facility]; SHE SAID THE NURSES WILL CALL PATIENT FOR HOSPITAL F/U VISIT.) Diet: Carb Consistent or DM2 Addtl Attending Provider Instructions: Medications: - XARELTO: blood thinner to prevent blood clots for the next 35 days, recommended after COVID infection in people at higher risk, which you are - LASIX: 40mg daily to help remove fluid, take with potassium 20mEq daily - LANTUS: changed to 25 units in the morning, resume your other diabetes medications and take fast acting Novolog with meals as previously prescribed COVID 19 pneumonia you completed full course of steroids and Remdesivir you have come a long way with titrating down from high flow nasal canula and CPAP to low flow nasal canula you will need 4L at rest, would also use 4L with CPAP when sleeping, would increase to 6L when walking or getting dressed, anything that causes exertion gradually increase your activity, I want you walking short distances every day, try to increase as tolerated but take breaks if you need to you will only continue to get better and require less oxygen there is a chance that you may require oxygen termite renewal inspector, perhaps 2L all the time, as [facility] home nursing will start tomorrow I have put in a referral for pulmonology locally, but your [place] provider might want you to see a [place] mat gauger instead, whatever the [place] will cover is fine with me Pending Studies at Discharge: No Stand-Alone Forms: My [facility], Smoking Cessation Medications and DC Order Prescriptions: New furosemide 40 mg Tablet 40 mg PO QAM 30 Days Qty: 30 RF: 1 Lantus U-100 Insulin 100 unit/mL Solution 25 unit SC QAM 30 Days Qty: 7.5 RF: 2 potassium chloride [Klor-Con M20] 20 mEq Tablet,Er Particles/Crystals 20 meq PO DAILY 30 Days Qty: 30 RF: 1 Xarelto 10 mg tablet 10 mg PO DAILY 35 Days Qty: 35 RF: 0 Continued Raspberry ketones 1 tab PO BID RF: 0 (DME) lancets [Accu-Chek Softclix Lancets] Misc See Rx Instructions .ROUTE .MEDSUPPLY Qty: 100 RF: 0 (DME) Accu-Chek Guide test strips Strip See Rx Instructions .ROUTE .MEDSUPPLY Qty: 10 RF: 0 insulin aspart U-100 [Novolog U-100 Insulin aspart] 100 unit/mL solution 100 unit subcut TID RF: 0 turmeric 400 mg capsule 400 mg PO DAILY RF: 0 diphenhydramine HCl [Benadryl] 25 mg capsule 25 mg PO DAILY RF: 0 Tylenol Extra Strength 500 mg powder in packet 1,000 mg PO DIRECTED PRN (Reason: Pain) RF: 0 Ozempic 1 mg/dose (2 mg/1.5 mL) pen injector 0.5 mg subcut ONCE 30 Days Qty: 11.25 RF: 5 omega-3 fatty acids [Fish Oil Concentrate] 1,000 mg capsule 1,000 mg PO DAILY RF: 0 oxybutynin chloride 10 mg Tablet Extended Release 24hr 10 mg PO QPM RF: 0 Glucosamine Chondroitin 550-30-1 mg Capsule 1 cap PO QAM RF: 0 metformin 500 mg Tablet 1,000 mg PO QAM RF: 0 metformin 500 mg Tablet 1,500 mg PO QPM RF: 0 levothyroxine 150 mcg Tablet 150 mcg PO QAM RF: 0 multivitamin Tablet 1 tab PO QAM RF: 0 cinnamon bark [Cinnamon] 500 mg capsule 1,000 mg PO BID RF: 0 fluticasone propionate [Flonase] 50 mcg/actuation [place],Suspension 1 spray INTRANASAL DIRECTED RF: 0 Eye-Vites Tablet 1 tab PO DAILY RF: 0 sodium chloride [Saline Nasal] 0.65 % Aerosol,[place] 2 spray INTRANASAL DIRECTED PRN (Reason: NASAL DRYNESS) RF: 0 mupirocin 2 % ointment 1 applic topical BID PRN (Reason: NASAL DRYNESS) RF: 0 Discontinued losartan 25 mg tablet 25 mg PO DAILY RF: 0 hydrochlorothiazide 25 mg Tablet 25 mg PO BID RF: 0 insulin glargine 100 unit/mL solution See Rx Instructions .ROUTE .COMPLEX RF: 0 potassium chloride 10 mEq Tablet Extended Release 0 meq PO DAILY RF: 0 Discharge Orders: Discharge Order (Routine); Ordered 08/20/21 Ordered By: Que Roger Admission Data Admit Date/Time: 07/30/21 21:19 Attending Provider: Que Roger Admit Provider: Ara Callahan Primary Care Provider: Kennedy De La Garza Other Providers: [facility] ; Ara Callahan Coding Level of Care Code D/C DAY MANAGEMENT >30 MINS Diagnoses Pneumonia due to 2019-nCoV U07.1; J12.82 Acute respiratory failure with hypoxia J96.01 Acute pulmonary edema J81.0 Hypomagnesemia E83.42 Hypokalemia E87.6 Diabetes mellitus type 2, uncontrolled E11.65 Morbid obesity with BMI of 40.0-44.9, adult E66.01; Z68.41 Sleep apnea G47.30 Hypothyroidism E03.9 Hyperlipidemia E78.5 DVT prophylaxis Z29.9 Hyponatremia E87.1 HTN (hypertension) I10
[2021-08-20] MEDS ORDERED: INSULIN ASPART 100 UNITS/ML 3 ML PEN SC SCH (16:30)
== END 2021-08-20 18:34 | disposition home health service (06) | DRG 177 ==
LOC: ED 17:02 → SUATTDRO 21:19 → 2E 21:19 → 3W 08-16 13:04 → 3E 08-19 16:05
DX: M54.9 Dorsalgia, unspecified; Z79.4 Long term (current) use of insulin; Z82.49 Family history of ischemic heart disease and other diseases of the circulatory system; J12.82 Pneumonia due to coronavirus disease 2019; Z68.41 Body mass index [BMI] 40.0-44.9, adult; Z77.22 Contact with and (suspected) exposure to environmental tobacco smoke (acute) (chronic); E11.42 Type 2 diabetes mellitus with diabetic polyneuropathy; T50.1X5A Adverse effect of loop [high-ceiling] diuretics, initial encounter; E03.9 Hypothyroidism, unspecified; G89.29 Other chronic pain; Z83.3 Family history of diabetes mellitus; E11.65 Type 2 diabetes mellitus with hyperglycemia; Z79.890 Hormone replacement therapy; E83.51 Hypocalcemia; I10 Essential (primary) hypertension; R43.8 Other disturbances of smell and taste; E87.1 Hypo-osmolality and hyponatremia; E66.01 Morbid (severe) obesity due to excess calories; J81.0 Acute pulmonary edema; G47.33 Obstructive sleep apnea (adult) (pediatric); Z79.899 Other long term (current) drug therapy; E83.42 Hypomagnesemia; M17.0 Bilateral primary osteoarthritis of knee; E87.6 Hypokalemia; Z51.81 Encounter for therapeutic drug level monitoring; J96.01 Acute respiratory failure with hypoxia; E78.5 Hyperlipidemia, unspecified; U07.1 COVID-19